=== PATIENT | female | born 1935 | race Caucasian/White ===

== ENCOUNTER 2021-01-14 01:00 | Inpatient (IN) | payer MEDICARE ==
[~2021-01-14] VITALS: Ht 152.4 cm; Wt 52.1 kg
[2021-01-14 04:10] VITALS: BP 141/103
[2021-01-14] MEDS ORDERED: ONDANSETRON 4MG/2ML VIAL IV PRN (04:35)
--- NOTE | 2021-01-14 04:37 | HPEPDOC ---
General Date of Admission 01/14/2021 Date of Service: Jan 14, 2021 Primary Care Physician: SHADY PUGA DO Chief Complaint Short of breath for 3 days Source: Family, Old records Exam Limitations: No limitations Timing/Duration: Day(s) (3) Severity: Mild Associated Symptoms: Cough, Other (lightheadedness) History of Present Illness Patient is a very pleasant 86 year old female with past medical history of atrial fibrillation, chronic kidney disease, rheumatoid arthritis, and congestive heart failure presented to the floor as a transfer from [facility] due to worsening dyspnea and productive cough for the past 3 days. She said the dyspnea started gradually while she was walking, alleviates with resting, worsens with movement. Denies orthopnea or bendopnea. She also has pr oductive cough with clear sputum without hemoptysis. She has noticed worsening bilateral lower extremity edema. Patient has been on home oxygen 2 L since August for unspecified reasons. It was noted that she has been desating into the 60s with exertion, and baseline resting oxygen is low 90s on oxygen. She has been eating more salty food like ham. Not currently on a fluid restriction diet. She denies fever, chills, rhinorrhea, sore throat, or sick contact. She said she has been feeling lightheaded and feels like she was going to pass out when she coughed hard; no actual loss of consciousness. Home Medications Scheduled Apixaban (Eliquis) 5 Mg Tablet, 5 MG PO BID, (Reported) Bimatoprost (Lumigan) 0.01% 2.5ML Drops, 1 DROP OU QHS, (Reported) Brimonidine Tartrate (Alphagan P) 0.1% 5ML Drops, 1 DROP OU BID, (Reported) Calcium Citrate/Vitamin D3 (Citracal + D Maximum Caplet) 1 Each Tablet, 1 TAB PO DAILY, (Reported) Diltiazem Hcl (Diltiazem 24Hr ER) 360 Mg Cap.er.24h, 360 MG PO DAILY, (Reported) Ferrous Sulfate (Ferrous Sulfate) 325 Mg Tablet, 325 MG PO DAILY, (Reported) Furosemide (Furosemide) 40 Mg Tablet, 40 MG PO DAILY, (Reported) Hydroxyzine HCl (Hydroxyzine HCl) 10 Mg Tablet, 10 MG PO QHS, (Reported) Leflunomide (Leflunomide) 20 Mg Tablet, 20 MG PO DAILY, (Reported) Metoprolol Succinate (Metoprolol Succinate) 50 Mg Tab.er.24h, 50 MG PO DAILY, (Reported) Multivitamins (Thera M Plus Tablet) 1 Each Tablet, 1 TAB PO DAILY, (Reported) Omeprazole (Omeprazole) 40 Mg Capsule.dr, 40 MG PO DAILY, (Reported) Potassium Chloride (Potassium Chloride) 10 Meq Capsule.er, 10 MEQ PO DAILY, (Reported) Prednisone (Prednisone) 5 Mg Tablet, 5 MG PO Q2D, (Reported) Allergies Coded Allergies: tetanus toxoid, adsorbed (Verified Allergy, Mild, POSITIVE PATCH TEST, 01/14/21) codeine (Verified Adverse Reaction, Mild, MAKES HYPER, 01/14/21) pneumococcal vaccine (Verified Adverse Reaction, Unknown, FLU SYMPTOMS, 01/14/21) Past Medical History Medical History Rheumatoid arthritis on chronic PO prednisone Congestive heart failure Prior sepsis Chronic kidney disease Abdominal aortic aneurysm Nodules on thyroid Surgical History Appendectomy Left oophrectomy Bladder suspension Carpal tunnel repair Left hammer toe surgery(4 out of 5 toes in left foot) Family History Father has diabetes Mother has COPD Social History * Smoker: Denies, other (Remote smoking history quit in 1991) Alcohol: Denies Drugs: denies Recent Travel/Sick Contacts: Denies: Recent travel, Recent sick contacts Lives at home A-FIB/CHADSVASC A-FIB History Current/History of A-Fib/PAF?: Yes Current PO Anticoag Therapy: Yes Age/Risk Factor Scoring CHADSVASC: CHADSVASC Response (Comments) Value Age Risk Factor Age >/= 75 years old 2 Gender Risk Factor Female 1 Hx of CHF Yes 1 Hx of HTN No 0 Hx of Stroke/TIA/or VTE No 0 Hx of Diabetes No 0 Hx of Vascular Disease No 0 Total 4 Treatment Treatment ordered: Apixaban Review of Systems Constitutional: Reports: Other (lightheadedness); Denies: Chills, Fever Eyes: Denies: Vision change ENT: Denies: Sore Throat Pulmonary: Reports: Dyspnea, Cough Cardiovascular: Denies: Chest Pain, Palpitations, Orthopnea Gastrointestinal: Reports: Nausea; Denies: Vomiting, Abdominal Pain, Diarrhea, Constipation, Hematochezia Genitourinary: Denies: Dysuria, Hematuria Musculoskeletal: Reports: Other Symptoms (rheumatoid arthritis) Neurological: Denies: Weakness, Numbness Physical Examination General Exam: Positive: Alert, Cooperative, Mild Distress Eye Exam: Positive: Conjunctiva & lids normal; Negative: Sclera icteric ENT Exam: Positive: Atraumatic, Mucous membr. moist/pink Chest Exam: Positive: Normal air movement, Wheezing (bilateral wheezing) Heart Exam: Positive: Rate Normal, Irregular Rhythm; Negative: Murmurs Abdomen Exam: Positive: Normal bowel sounds, Soft; Negative: Tenderness Extremity Exam: Positive: Edema (2 to 3 +pitting edema bilaterally, right worse than left); Negative: Cyanosis Skin Exam: Positive: Nl turgor and temperature; Negative: Breakdown Neuro Exam: Positive: Normal Speech, Normal Tone Psych Exam: Positive: Mental status NL, Mood NL, Memory Intact, Oriented x 3 Vital Signs Vital Signs Date Time Temp Pulse Resp B/P (MAP) Pulse Ox O2 Delivery O2 Flow Rate FiO2 01/14/21 04:10 97.7 107 17 141/103 (116) 85 Assessment/Plan 86 year old very pleasant female with past medical history of atrial fibrillation and CHF chronically on 2L oxygen at home presented to [facility] due to 3 days of worsening dyspnea, exertional dyspnea, lightheadedness, and bilateral lower extremity swelling as a transfer from [facility]. 1. Dyspnea on exertion, likely due to CHF exacerbation vs undiagnosed COPD exacerbation vs less likely pneumonia -Worsening dyspnea, cough, lower extremity edema -Hold home PO lasix. Start IV lasix 40mg BID -transient hypoxia may contribute to her lightheadedness and nausea. Currently without lightheadedness. Zofran PRN -continuous pulse ox, oxygen therapy to titrate O2>92% -xopenex PRN. May add on scheduled respiratory treatment -cardiac marker, tele monitor, echo -Less likely pneumonia however patient has autoimmune disease, also on lefluonmide and prednisone thus may not have a full inflammatory response. Portable chest X ray ordered. -I&O, daily weight 2. Atrial fibrillation -continue home med Eliquis, diltiazem, and Metoprolol -tele monitor 3. Rheumatoid arthritis -continue home med prednisone -Continue Leflunomide; Leflunomide not available in-house; may use own med DVT prophylaxis: On home med Eliquis for A. fib. SCD and TEDS Plan / VTE VTE Prophylaxis Ordered?: Yes GME ATTESTATION GME ATTESTATION My faculty preceptor for this patient encounter was physically present during the encounter and was fully available. All aspects of the patient interview, examination, medical decision making process, and medical care plan development were reviewed and approved by the faculty preceptor. The faculty preceptor is aware and concurs with the plan as stated in the body of this note and will attest to such by his/her cosignature. ATTENDING NOTE I, Shady Puga, performed a history and physical exam of the patient and discuss his/or her management with the resident. I reviewed the residents note and agree with the documented findings and plan of care. KASEY NOLAND DO Jan 14, 2021 04:37 SHADY PUGA DO Jan 14, 2021 05:43
[2021-01-14] MEDS ORDERED: METOPROLOL TART 50 MG TAB PO ONE (04:40)
[2021-01-14] MEDS ORDERED: LEFL1TAB4 PO (04:43)
[2021-01-14] MEDS ORDERED: POTA10CA32 PO (04:43)
[2021-01-14] MEDS ORDERED: ELIQ5TAB PO (04:43)
[2021-01-14] MEDS ORDERED: DILT1CAP46 PO (04:43)
[2021-01-14] MEDS ORDERED: FURO40TA2 PO (04:43)
[2021-01-14] MEDS ORDERED: PRED5TA PO (04:43)
[2021-01-14] MEDS ORDERED: HYDR-643 PO (04:43)
[2021-01-14] MEDS ORDERED: BRIM1OPD OU (04:44)
[2021-01-14] MEDS ORDERED: FERR1TAB8 PO (04:44)
[2021-01-14] MEDS ORDERED: VITMTA PO (04:44)
[2021-01-14] MEDS ORDERED: BIMA01SOL OU (04:44)
[2021-01-14] MEDS ORDERED: METO1TAB7 PO (04:44)
[2021-01-14] MEDS ORDERED: OMEP-221 PO (04:44)
[2021-01-14] MEDS ORDERED: CITRTAB16 PO (04:44)
[2021-01-14] MEDS ORDERED: predniSONE 5 MG TAB PO ONE (04:45)
[2021-01-14] MEDS ORDERED: HOME MED LIST COMPLETE! XX SCH (04:45)
[2021-01-14] MEDS ORDERED: LEVALBUTEROL HFA 45MCG/ACT 15 GM INHALER INH PRN (04:45)
[2021-01-14] MEDS: FUROSEMIDE 40MG/4ML VIAL (J1940) IV SCH ×2 (05:53→07:51)
[2021-01-14] MEDS: APIXABAN 5 MG TAB (ELIQUIS) PO SCH ×2 (05:56→07:52)
[2021-01-14 06:00] VITALS: BP 139/98
[2021-01-14 06:57] LABS: HEMATOCRIT 41.7 % (36.0-47.0); HEMOGLOBIN 13.1 g/dl (12.0-15.5); MEAN CORPUSCULAR HEMOGLOBIN 31.6 pg (27.0-33.0); MEAN CORPUSCULAR HGB CONC 31.4 g/dl (32.0-36.5); MEAN CORPUSCULAR VOLUME 100.7 fl (80.0-96.0); PLATELET COUNT, AUTOMATED 168 10^3/uL (150-450); RED BLOOD COUNT 4.14 10^6/uL (4.00-5.40); WHITE BLOOD COUNT 4.4 10^3/uL (4.0-10.0)
[2021-01-14 07:11] LABS: INR 1.63; PROTHROMBIN TIME 19.8 SECONDS (12.7-14.5)
[2021-01-14 07:12] LABS: PARTIAL THROMBOPLASTIN TIME 40.6 SECONDS (25.9-37.0)
[2021-01-14 07:23] LABS: ALBUMIN 2.6 GM/DL (3.2-5.2); ALT/SGPT 25 U/L (12-78); BILIRUBIN,TOTAL 0.7 MG/DL (0.2-1.0); BLOOD UREA NITROGEN 42 MG/DL (7-18); CALCIUM LEVEL 9.6 MG/DL (8.8-10.2); CARBON DIOXIDE LEVEL 31 MEQ/L (21-32); CHLORIDE LEVEL 100 MEQ/L (98-107); CK-MB VALUE MASS < 1.0 NG/ML (<3.6); CPK CREATINE PHOSPHOKINASE 21 U/L (26-192); CREATININE FOR GFR 1.31 MG/DL (0.55-1.30); GLOMERULAR FILTRATION RATE 41.1 (>32); GLUCOSE, FASTING 92 MG/DL (70-100); MB/CK RELATIVE INDEX 4.76 (< OR =4); POTASSIUM SERUM 4.2 MEQ/L (3.5-5.1); SODIUM LEVEL 136 MEQ/L (136-145); TROPONIN I 0.03 NG/ML (< 0.10)
[2021-01-14] MEDS: OMEPRAZOLE 20 MG CAP PO SCH (07:51)
[2021-01-14] MEDS: CALCIUM/VITAMIN D 500 MG TAB PO SCH (07:51)
[2021-01-14] MEDS: POTASSIUM CHLORIDE 10MEQ SR TABLET PO SCH (07:51)
[2021-01-14] MEDS: FERROUS SULFATE 325MG TAB PO SCH (07:52)
[2021-01-14] MEDS: MULTIVITAMINS/MINERALS THERAP 1 TAB PO SCH (07:52)
[2021-01-14] MEDS: diltiaZEM **CD** 180 MG CAP PO SCH (07:57)
[2021-01-14] MEDS: BRIMONIDINE 0.1% OPHTH SOLN 5 ML OU SCH ×2 (08:00→20:38)
--- NOTE | 2021-01-14 08:05 | REP ---
INDICATION: CHF. COMPARISON: No comparison chest x-ray TECHNIQUE: Portable upright AP chest radiograph. FINDINGS: Monitoring electrodes are present. Moderate cardiac enlargement is observed. The aorta is calcific and tortuous. There is no evidence of pleural effusion. There are however bilateral interstitial infiltrates in the lung jaramillo, left perihilar, right upper lobe, and right lower lobe. Acute versus chronic. IMPRESSION: Bilateral interstitial infiltrates. Moderate cardiac enlargement. No evidence of pleural effusion. <Electronically signed by Jitendra Vee > 01/14/21 [id number]
--- NOTE | 2021-01-14 08:10 | REPVR ---
PROCEDURE INFORMATION: Exam: US Duplex Right Lower Extremity Veins, Limited Exam date and time: 01/14/2021 6:58 AM Age: 86 years old Clinical indication: Edema, localized; Lower extremity, right; Additional info: Right lower extremity swelling TECHNIQUE: Imaging protocol: Real-time Duplex ultrasound of the Right Lower Extremity with 2-D lang scale, color Doppler flow and spectral waveform analysis with image documentation. Limited exam was focused on the right lower extremity veins. COMPARISON: No relevant prior studies available. FINDINGS: Right deep veins: Unremarkable. The common femoral, femoral, proximal profunda femoral and popliteal veins are patent without thrombus. Normal Doppler waveforms. Normal compressibility and/or augmentation response. Right superficial veins: Unremarkable. Saphenofemoral junction is patent without thrombus. Soft tissues: Unremarkable. IMPRESSION: No evidence of deep vein thrombosis. Electronically signed by: Sim Abebe On 01/14/2021 08:10:20 AM
[2021-01-14] MEDS ORDERED: LEFLUNOMIDE 20 MG PO SCH (09:00)
[2021-01-14 09:06] LABS: NT-PRO BNP 6425 PG/ML (<450)
--- NOTE | 2021-01-14 12:56 | REP ---
INDICATION: Hypoxia, abnormal CXR. COMPARISON: Comparison is made with today's chest x-ray. TECHNIQUE: Helical scanning is acquired. 3 mm axial images are generated. Coronal and sagittal MPR and coronal MIP images are generated. 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 Axial CT images show a predominantly peripheral pattern of subpleural interstitial fibrosis in the lung jaramillo consistent with chronic interstitial fibrosis. This is more pronounced in the right upper lobe and to a lesser extent left upper lobe than in the lower lobes but there is coarse fibrosis in the lower lobes as well. A minimal amount of pleural fluid and some pleural thickening is visible in the bases. Four-chamber cardiac enlargement is seen. Mitral annular and some vascular calcification are observed. No hilar or mediastinal mass or adenopathy is seen. The central pulmonary arteries are prominent question pulmonary arterial hypertension. There are renal cortical cysts noted bilaterally in the upper abdomen. The adrenal glands are unremarkable. There are bilateral thyroid nodules containing calcifications. No bony destructive lesion is appreciated. IMPRESSION: Diffuse interstitial fibrosis pattern, moderate to advanced, most pronounced in the right upper lobe. Tiny sliver of bilateral pleural fluid. Cardiomegaly. Centrally prominent pulmonary arteries, question pulmonary arterial hypertension. Bilateral renal cortical cysts. <Electronically signed by Jitendra Vee > 01/14/21 [id number]
[2021-01-14 14:00] VITALS: BP 99/66
--- NOTE | 2021-01-14 16:37 | ECGEPIP ---
[facility] Test Date: 2021-01-14 Pat Name: YUE ROJAS Department: Room: [place] [address] Gender: Female Exhibits Coordinator: yuliya : 1935 Requested By: LIMA Bales Order Number: [id number] Reading MD: Johnie Herrmann Measurements Intervals [place] Rate: 104 P: SC: QRS: -50 QRSD: 80 T: 121 QT: 328 QTc: 431 Interpretive Statements Atrial fibrillation with moderate ventricular response Left anterior fascicular block Nonspecific ST and T wave abnormality Comparison tracing not on file Electronically Signed on 01-14-2021 16:36:52 EDT by Johnie Herrmann
[2021-01-14] MEDS: hydrOXYzine 10 MG TAB PO SCH (20:38)
[2021-01-14] MEDS ORDERED: BIMATOPROST 0.01% OU SCH (21:00)
[2021-01-14 22:00] VITALS: BP 118/79
[2021-01-15 06:00] VITALS: BP 131/79
[2021-01-15] MEDS: FERROUS SULFATE 325MG TAB PO SCH (08:39)
[2021-01-15] MEDS: CALCIUM/VITAMIN D 500 MG TAB PO SCH (08:39)
[2021-01-15] MEDS: MULTIVITAMINS/MINERALS THERAP 1 TAB PO SCH (08:39)
[2021-01-15] MEDS: OMEPRAZOLE 20 MG CAP PO SCH (08:39)
[2021-01-15] MEDS: APIXABAN 5 MG TAB (ELIQUIS) PO SCH ×2 (08:40→22:05)
[2021-01-15] MEDS: METOPROLOL TART 25 MG TABLET PO SCH ×2 (08:40→16:04)
[2021-01-15] MEDS: POTASSIUM CHLORIDE 10MEQ SR TABLET PO SCH (08:40)
[2021-01-15] MEDS: diltiaZEM **CD** 180 MG CAP PO SCH (08:41)
[2021-01-15] MEDS: BRIMONIDINE 0.1% OPHTH SOLN 5 ML OU SCH ×2 (08:42→22:05)
[2021-01-15] MEDS: FUROSEMIDE 40MG/4ML VIAL (J1940) IV SCH ×2 (08:42→18:35)
[2021-01-15] MEDS ORDERED: METOPROLOL SUCC (TopROL XL) 50MG **XL** TAB PO SCH (09:00)
[2021-01-15] MEDS ORDERED: FLUBLOK(EGG FREE)(QUAD)INFLUENZA VACC 0.5ML SYRINGE 18YRS & OLDER IM ONE (09:00)
--- NOTE | 2021-01-15 11:19 | IPNPDOC ---
Date Seen The patient was seen on 01/15/21. Progress Note SUBJECTIVE: Patient seen and examined at bedside. She is sitting in bed eating breakfast. Overnight had A. fib with RVR heart rate of 130. Was asymptomatic. Denies chest pain shortness of breath palpitations fevers chills. Lower extremity edema 2+ pulses. Patient has been putting out urine presently -160 fluid balance although her weight decreased from 65.4kg to 61.9 kg, therefore I am not sure if this is entirely correct. Patient reports that she has not been seeing a rheumatoligist, and has failed numerous treatments in the past including methotrexate and bioligics. She has been on leflunomide for nearly 10 years. 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 OBJECTIVE PHYSICAL EXAMINATION: VITAL SIGNS: please see below General: NAD, comfortable HEENT: PERRLA, EOMI, sclerae clear 2 L of oxygen via nasal cannula in place. Neck: supple, normal ROM, no JVD Respiratory: Crackles heard in bilateral lung bases, good inspiratory effort. CVS: RRR, normal S1, S2, no murmurs Abdo: soft, no masses, no hepatosplenomegaly, BS+, no rebound tenderness Extremities: 2+ pitting edema persistent bilateral lower extremities. No cyanosis. MSK: no joint deformities, normal ROM Neuro: no focal neuro deficits, moving all 4 extremities, CN2-12 intact. Strength 5/5 in all 4 extremities. No nystagmus. Psych: calm, cooperative, AAO x 3 LABORATORY DATA, IMAGING STUDIES, MICROBIOLOGY: Please see below. Echocardiogram: Completed on 01/14/2021 pending read. DVT prophylaxis ordered?: On Eliquis ASSESSMENT AND PLAN: 86-year-old female with a past medical history of atrial fibrillation on Eliquis, CKD, rheumatoid arthritis, congestive heart failure as yet unspecified, suspected pulmonary hypertension on 2 L home oxygen PROBLEMS: Dyspnea and hypoxia likely secondary due to CHF exacerbation - continues to require 5L - edema persists - BNP 6425 - bilateral 2+ pitting edema persists, has extensive crackles - will increase lasic to 40 mg IV q8h - strict I and O. restrict PO fluid to 1800 cc. 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 Damian. - patient has severe interstitial pulmonary disease with possible acute exacerbation or drug incuced pneumonitis - concern for pulm fibrosis 2/2 leflunomide. - Dr. Damian recommends stopping leflunomide. Patient will need close referral to rheumatology. - pulse with high dose steroids, solumedrol 1g daily x 3 days, continue with solumedrol 40 mg IV BID therafter - will start prophylactic ceftriaxone and azithromycin - check resp panel again, and sputum cultures. 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 VS, I&O, 24H, Fishbone Vital Signs/I&O Vital Signs Date Time Temp Pulse Resp B/P (MAP) Pulse Ox O2 Delivery O2 Flow Rate FiO2 01/15/21 08:41 105 135/91 01/15/21 06:00 97.2 17 91 Nasal Cannula 5.0 I&O- Last 24 Hours up to 6 AM 01/15/21 05:59 Intake Total 1390 ml Output Total 1550 ml Balance -160 ml Laboratory Data Microbiology Microbiology 01/14/21 Respiratory Virus Panel (PCR) (JOSEPHINE) - Final, Complete HEATHER JOSEPH MD Jan 15, 2021 11:19
[2021-01-15 11:35] LABS: BASO % 1.4 % (0.0-1.0); EOS # 0.1 10^3/uL (0.0-0.5); EOS % 2.1 % (0.0-3.0); HEMATOCRIT 41.5 % (36.0-47.0); HEMOGLOBIN 12.7 g/dl (12.0-15.5); LYMPH # 0.4 10^3/uL (1.5-5.0); LYMPH % 14.8 % (24.0-44.0); MEAN CORPUSCULAR HEMOGLOBIN 31.6 pg (27.0-33.0); MEAN CORPUSCULAR HGB CONC 30.6 g/dl (32.0-36.5); MEAN CORPUSCULAR VOLUME 103.2 fl (80.0-96.0); MONO # 0.6 10^3/uL (0.0-0.8); MONO % 20.1 % (2.0-8.0); NEUTROPHILS # 1.7 10^3/uL (1.5-8.5); NEUTROPHILS % 60.9 % (36.0-66.0); PLATELET COUNT, AUTOMATED 141 10^3/uL (150-450); RED BLOOD COUNT 4.02 10^6/uL (4.00-5.40); WHITE BLOOD COUNT 2.8 10^3/uL (4.0-10.0)
[2021-01-15 12:01] LABS: ALBUMIN 2.2 GM/DL (3.2-5.2); BILIRUBIN,TOTAL 0.5 MG/DL (0.2-1.0); CALCIUM LEVEL 9.1 MG/DL (8.8-10.2); CREATININE FOR GFR 1.11 MG/DL (0.55-1.30); GLOMERULAR FILTRATION RATE 49.7 (>32); MAGNESIUM LEVEL 1.7 MG/DL (1.8-2.4); POTASSIUM SERUM 4.5 MEQ/L (3.5-5.1); TOTAL PROTEIN 6.6 GM/DL (6.4-8.2)
[2021-01-15 14:00] VITALS: BP 102/73
--- NOTE | 2021-01-15 14:30 | CR.PDOC ---
General Date of Consultation: Jan 15, 2021 Referring Provider: HEATHER JOSEPH MD Attending Physician: HEATHER JOSEPH MD Consultation REASON FOR CONSULTATION/CHIEF COMPLAINT: Shortness of breath and a cough. HISTORY OF PRESENT ILLNESS: This is a pleasant 86-year-old lady with past med ical history of rheumatoid arthritis, pulmonary fibrosis, atrial fibrillation on Eliquis, congestive heart failure, chronic kidney, chronic hypoxic respiratory failure on 2 L oxygen at home disease who presented to hospital yesterday with complaints of shortness of breath and cough. Patient has been experiencing shortness of breath and cough for the last 1 year. Her symptom has been progressive to the point that she is unable to perform any physical activity without experiencing severe shortness of breath. Therefore she presented to hospital yesterday. In addition to shortness of breath, patient complains of dry cough. She also admits to what appears to be orthopnea however it is likely related to her anxiety as she stated. However, she denies fever, chills, night sweats, weight loss, appetite change, hemoptysis, sputum production, wheezing, chest pain, palpitation, abdominal pain, rash, joint pain or joint swelling. She has been diagnosed with rheumatoid arthritis since she was in her 50s. She has been on multiple immunosuppressive agent including methotrexate, Enbrel, Plaquenil. However in the last 8 to 10 years, she has been on leflunomide and low-dose prednisone of 5 mg. She has not follow-up with her pedicab driver for many years. In the last recent several years, she has not had any RA exacerbation. She did have an episode of sepsis where she was admitted at [facility] back in July. At that time she was noted to have pulmonary fibrosis which her valet parker likely attributed to amiodarone. Therefore amiodarone was stopped and she was switched to diltiazem. 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 She denies any significant occupational exposure. She does not want any pets. She does not have any allergy. She has not relocated in the last 60 years. She lives by herself with her daughter around the corner of the street who take care of her. She used to smoke in the past but has not smoked since 1991. Upon admission to the hospital, patient was diagnosed with decompensated heart failure and was given diuretic therapy along with fluid restriction. CT scan of the chest done shows significant pulmonary fibrosis with reticulation in the periphery as well as honeycomb changes along with traction bronchiectasis. There was also evidence of groundglass opacity bilaterally. Pulmonary artery di ameter is also larger than aorta suggestive of pulmonary hypertension. The CT scan of the chest was consistent with NSIP (nonspecific interstitial pneumonia). Pulmonary was consulted for further recommendation. ALLERGIES: Please see below. HOME MEDICATIONS: Please see below. PAST MEDICAL HISTORY: Rheumatoid arthritis on chronic PO prednisone Congestive heart failure Prior sepsis Chronic kidney disease Abdominal aortic aneurysm Nodules on thyroid PAST SURGICAL HISTORY: Appendectomy Left oophrectomy Bladder suspension Carpal tunnel repair Left hammer toe surgery(4 out of 5 toes in left foot) FAMILY HISTORY: Father has diabetes Mother has COPD SOCIAL HISTORY: Patient is a . She does have a daughter who lives around the corner of the street that was taking care of her. She is currently living by herself. 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 She used to smoke but quit smoking back in 1991. She denies any history of owning pets. REVIEW OF SYSTEMS: CONSTITUTIONAL: Denies fatigue, appetite change, weight change, night sweats, fever, chills. HEENT: Denies sore throat. CARDIOVASCULAR: Denies chest pain, palpitation, orthopnea, PND. RESPIRATORY: Admits to experiencing shortness of breath and dry cough. Denies wheezing or hemoptysis. GENITOURINARY: Denies dysuria or flank pain. MUSCULOSKELETAL: Denies any joint pain or joint swelling. GASTROINTESTINAL: Denies nausea, vomiting, abdominal pain, diarrhea. SKIN: Denies skin rash or skin lesion. NEUROLOGICAL: Denies slurred speech or focal neurological weakness/numbness. PSYCHIATRIC: Denies depression. ENDOCRINE: Denies weight change. HEMATOLOGIC/LYMPHATIC: Denies bleeding. ALLERGIC/IMMUNOLOGIC: Denies allergy. PHYSICAL EXAMINATION: VITAL SIGNS: Please see below. GENERAL APPEARANCE: Patient appears her stated age. She is alert and oriented x3. She is not in any acute distress. She is conversing well. HEENT: Significant JVD to the base of her earlobe. No cervical adenopathy RESPIRATORY: Bibasilar coarse crackle. CARDIOVASCULAR: Irregularly irregular with no evidence of murmur. ABDOMEN: Soft nontender with positive bowel sounds. EXTREMITIES: +4 pitting edema up to the level of the knees. NEUROLOGICAL: No focal neurological deficit with intact motor strength. PSYCHIATRIC: Alert oriented x3. LABORATORY DATA: Please see below. ASSESSMENT/PLAN: This is a pleasant 86-year-old lady with past medical history of rheumatoid arthritis, pulmonary fibrosis, atrial fibrillation on Eliquis, congestive heart failure, chronic kidney, chronic hypoxic respiratory failure on 2 L oxygen at home disease who presented to hospital yesterday with complaints of shortness of breath and cough. 1. 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 Less likely pneumonia given the lack of clinical symptoms. 2. Decompensated right heart failure with features of group 3 pulmonary hypertension. 3. Pulmonary fibrosis with traction bronchiectasis 4. Atrial fibrillation 5. History of rheumatoid arthritis 6. Acute on chronic hypoxic respiratory failure Plan: -I believe this is a mixture of ILD exacerbation and decompensated right heart failure. Therefore, I recommend to continue on with ongoing aggressive diuresis until we start seeing worsening of kidney function. -With regarding to ILD, I recommend to stop leflunomide immediately and start her on pulse dose systemic corticosteroid with methylprednisolone 1 g/day for 3 days followed by methylprednisolone 40 mg twice daily. Rheumatology input will be greatly appreciated with guidance for alternate immunosuppressive therapy. -I recommend prophylactically cover her with ceftriaxone and azithromycin for community-acquired pneumonia. Please send respiratory viral panel including COVID-19. -Ideally a bronchoscopy with BAL should be performed but given the severity of her respiratory failure, she is at high risk for prolonged intubation. Therefore I will hold off performing bronchoscopy. -I will discuss her case with ILD specialist at [facility]. Vital Signs/I&O Vital Signs Date Time Temp Pulse Resp B/P (MAP) Pulse Ox O2 Delivery O2 Flow Rate FiO2 01/15/21 08:41 105 135/91 01/15/21 06:00 97.2 17 91 Nasal Cannula 5.0 I&O- Last 24 Hours up to 6 AM 01/15/21 06:00 Intake Total 1240 ml Output Total 1550 ml Balance -310 ml Laboratory Data Labs 24H Laboratory Tests 2 01/15/21 11:23: Immature Granulocyte % (Auto) 0.7, Neutrophils (%) (Auto) 60.9, Lymphocytes (%) (Auto) 14.8L, Monocytes (%) (Auto) 20.1H, Eosinophils (%) (Auto) 2.1, Basophils (%) (Auto) 1.4H, Neutrophils # (Auto) 1.7, Lymphocytes # (Auto) 0.4L, Monocytes # (Auto) 0.6, Eosinophils # (Auto) 0.1, Basophils # (Auto) 0.0, Nucleated Red Blood Cells % (auto) 0.0, Anion Gap 4L, Glomerular Filtration Rate 49.7, Calcium Level 9.1, Magnesium Level 1.7L, Total Bilirubin 0.5, Aspartate Amino Transf (AST/SGOT) 33, Alanine Aminotransferase (ALT/SGPT) 24, Alkaline Phosphatase 71, Total Protein 6.6, Albumin 2.2L, Albumin/Globulin Ratio 0.5L CBC/BMP Laboratory Tests 01/15/21 11:23 Microbiology Microbiology 01/14/21 Respiratory Virus Panel (PCR) ([facility]) - Final, Complete Allergies Coded Allergies: tetanus toxoid, adsorbed (Verified Allergy, Mild, POSITIVE PATCH TEST, 01/14/21) codeine (Verified Adverse Reaction, Mild, MAKES HYPER, 01/14/21) pneumococcal vaccine (Verified Adverse Reaction, Unknown, FLU SYMPTOMS, 01/14/21) Home Medications Scheduled Apixaban (Eliquis) 5 Mg Tablet, 5 MG PO BID, (Reported) Bimatoprost (Lumigan) 0.01% 2.5ML Drops, 1 DROP OU QHS, (Reported) Brimonidine Tartrate (Alphagan P) 0.1% 5ML Drops, 1 DROP OU BID, (Reported) Calcium Citrate/Vitamin D3 (Citracal + D Maximum Caplet) 1 Each Tablet, 1 TAB PO DAILY, (Reported) Diltiazem Hcl (Diltiazem 24Hr ER) 360 Mg Cap.er.24h, 360 MG PO DAILY, (Reported) Ferrous Sulfate (Ferrous Sulfate) 325 Mg Tablet, 325 MG PO DAILY, (Reported) Furosemide (Furosemide) 40 Mg Tablet, 40 MG PO DAILY, (Reported) Hydroxyzine HCl (Hydroxyzine HCl) 10 Mg Tablet, 10 MG PO QHS, (Reported) Leflunomide (Leflunomide) 20 Mg Tablet, 20 MG PO DAILY, (Reported) Metoprolol Succinate (Metoprolol Succinate) 50 Mg Tab.er.24h, 50 MG PO DAILY, (Reported) Multivitamins (Thera M Plus Tablet) 1 Each Tablet, 1 TAB PO DAILY, (Reported) Omeprazole (Omeprazole) 40 Mg Capsule.dr, 40 MG PO DAILY, (Reported) Potassium Chloride (Potassium Chloride) 10 Meq Capsule.er, 10 MEQ PO DAILY, (Reported) Prednisone (Prednisone) 5 Mg Tablet, 5 MG PO Q2D, (Reported) FRANCIE RAO MD Jan 15, 2021 14:30
[2021-01-15] MEDS: AZITHROMYCIN INJ 500 MG, VIAL MATE ADAPTER 1 EACH in NS 250 ML IV SCH (15:57)
--- NOTE | 2021-01-15 17:34 | ECHO ---
ECHOCARDIOGRAM DATE OF PROCEDURE: 01/14/2021 Age: 86 Gender: Female Height: 152 cm Weight: 65 kg PATIENT LOCATION: Room 4207. REFERRING PROVIDER: Jeannine Patricio M.D. REASON FOR THE STUDY: Shortness of breath. MEASUREMENTS: 2D Measurements: IVS 1.1 cm LV 3.5 cm LVPW 1.1 cm LA 4.0 cm Aorta 3.3 cm IVC 2.5 cm Doppler Measurements: Peak velocity across the aortic valve 1.3 m/sec Peak velocity across the LVOT 0.6 m/sec Peak gradient across the aortic valve 7 mmHg Mean gradient across the aortic valve 5 mmHg Maximum tricuspid valve velocity 2.9 m/sec 2D COMMENTS: 1. Normal left ventricular size, wall thickness and normal global left ventricular systolic function. The estimated left ventricular systolic ejection fraction is 60-65%. 2. Mildly enlarged left atrium. The right atrium and right ventricle appear to be enlarged. 3. The atrial septum appeared to be normal without evidence of defect or shunt. 4. Normal aortic root. 5. No pericardial effusion seen. 6. Mildly calcified aortic valve with normal leaflet excursion. Mildly calcified mitral annulus with normal anterior mitral valve leaflet motion. Normal tricuspid valve and pulmonic valve. The proximal pulmonary artery branches were not well visualized. 7. The inferior vena cava was mildly enlarged. Central venous pressure might be elevated. DOPPLER: It detects mild aortic regurgitation, mild mitral regurgitation and moderate tricuspid regurgitation. Trace pulmonic regurgitation also detected. The calculated pulmonary artery systolic pressure varies between 40-50 mmHg. Assessment of the left ventricular diastolic function was limited in view of the underlying atrial fibrillation. IMPRESSION: 1. Normal global left ventricular systolic function. Assessment of the left ventricular diastolic function was limited in view of the underlying atrial fibrillation. 2. Aortic valve sclerosis with mild aortic regurgitation and trivial aortic stenosis. 3. Mitral annulus calcification with mildly enlarged left atrium and mild mitral regurgitation. 4. Moderate tricuspid regurgitation with moderate pulmonary hypertension. The right heart chambers appear to be enlarged. 5. The right ventricular systolic function also appeared to be slightly depressed. 6. Trace pulmonic regurgitation. MTDD
[2021-01-15] MEDS: methylPREDNISolone 1,000 MG, VIAL MATE ADAPTER 1 EACH in NS 250 ML IV SCH (18:36)
--- NOTE | 2021-01-15 18:45 | ECGEPIP ---
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
[2021-01-15] MEDS: cefTRIAXone SOD 1 GM in D5W MINI-BAG PLUS 50 ML IV SCH (19:49)
[2021-01-15 21:00] VITALS: O2SAT 93
[2021-01-15 22:00] VITALS: BP 127/85
[2021-01-15] MEDS: hydrOXYzine 10 MG TAB PO SCH (22:05)
[2021-01-16] MEDS: FUROSEMIDE 40MG/4ML VIAL (J1940) IV SCH ×3 (00:40→18:02)
[2021-01-16 06:00] VITALS: BP 102/64
[2021-01-16 06:31] LABS: BASO % 0.4 % (0.0-1.0); EOS % 0.4 % (0.0-3.0); HEMATOCRIT 40.9 % (36.0-47.0); HEMOGLOBIN 12.5 g/dl (12.0-15.5); LYMPH # 0.2 10^3/uL (1.5-5.0); LYMPH % 6.8 % (24.0-44.0); MEAN CORPUSCULAR HEMOGLOBIN 31.4 pg (27.0-33.0); MEAN CORPUSCULAR HGB CONC 30.6 g/dl (32.0-36.5); MEAN CORPUSCULAR VOLUME 102.8 fl (80.0-96.0); MONO # 0.2 10^3/uL (0.0-0.8); MONO % 6.4 % (2.0-8.0); NEUTROPHILS # 2.2 10^3/uL (1.5-8.5); NEUTROPHILS % 85.6 % (36.0-66.0); PLATELET COUNT, AUTOMATED 148 10^3/uL (150-450); RED BLOOD COUNT 3.98 10^6/uL (4.00-5.40); WHITE BLOOD COUNT 2.5 10^3/uL (4.0-10.0)
[2021-01-16 06:42] LABS: ALBUMIN 2.2 GM/DL (3.2-5.2); BILIRUBIN,TOTAL 0.5 MG/DL (0.2-1.0); CALCIUM LEVEL 8.9 MG/DL (8.8-10.2); CREATININE FOR GFR 1.31 MG/DL (0.55-1.30); GLOMERULAR FILTRATION RATE 41.1 (>32); MAGNESIUM LEVEL 1.7 MG/DL (1.8-2.4); POTASSIUM SERUM 4.2 MEQ/L (3.5-5.1); TOTAL PROTEIN 6.6 GM/DL (6.4-8.2)
[2021-01-16] MEDS: MAG SULF 1GM/100ML (MAG RUN) 1 GM in IV 1 EA IV SCH ×2 (08:41→11:33)
[2021-01-16] MEDS: POTASSIUM CHLORIDE 10MEQ SR TABLET PO SCH (08:55)
[2021-01-16] MEDS: CALCIUM/VITAMIN D 500 MG TAB PO SCH (08:55)
[2021-01-16] MEDS: MULTIVITAMINS/MINERALS THERAP 1 TAB PO SCH (08:56)
[2021-01-16] MEDS: OMEPRAZOLE 20 MG CAP PO SCH (08:56)
[2021-01-16] MEDS: METOPROLOL TART 25 MG TABLET PO SCH ×3 (08:57→16:27)
[2021-01-16] MEDS: FERROUS SULFATE 325MG TAB PO SCH (08:57)
[2021-01-16] MEDS: diltiaZEM **CD** 180 MG CAP PO SCH (08:58)
[2021-01-16] MEDS: APIXABAN 5 MG TAB (ELIQUIS) PO SCH ×2 (08:58→20:48)
[2021-01-16] MEDS ORDERED: predniSONE 5 MG TAB PO SCH (09:00)
[2021-01-16] MEDS: BRIMONIDINE 0.1% OPHTH SOLN 5 ML OU SCH ×2 (10:19→20:48)
[2021-01-16] MEDS: methylPREDNISolone 1,000 MG, VIAL MATE ADAPTER 1 EACH in NS 250 ML IV SCH (10:20)
--- NOTE | 2021-01-16 11:47 | IPNPDOC ---
Date Seen The patient was seen on 01/16/21. Progress Note SUBJECTIVE: Patient seen and examined at bedside. She is sitting in bed eating breakfast. Overnight had A. fib with RVR heart rate of 130. Was asymptomatic. Denies chest pain shortness of breath palpitations fevers chills. Lower extremity edema 2+ pulses. Patient has been putting out urine presently -160 fluid balance although her weight decreased from 65.4kg to 61.9 kg, therefore I am not sure if this is entirely correct. Patient reports that she has not been seeing a rheumatoligist, and has failed numerous treatments in the past including methotrexate and bioligics. She has been on leflunomide for nearly 10 years. 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 OBJECTIVE PHYSICAL EXAMINATION: VITAL SIGNS: please see below General: NAD, comfortable HEENT: PERRLA, EOMI, sclerae clear 2 L of oxygen via nasal cannula in place. Neck: supple, normal ROM, no JVD Respiratory: Crackles heard in bilateral lung bases, good inspiratory effort. CVS: RRR, normal S1, S2, no murmurs Abdo: soft, no masses, no hepatosplenomegaly, BS+, no rebound tenderness Extremities: 2+ pitting edema persistent bilateral lower extremities. No cyanosis. MSK: no joint deformities, normal ROM Neuro: no focal neuro deficits, moving all 4 extremities, CN2-12 intact. Strength 5/5 in all 4 extremities. No nystagmus. Psych: calm, cooperative, AAO x 3 LABORATORY DATA, IMAGING STUDIES, MICROBIOLOGY: Please see below. Echocardiogram: Completed on 01/14/2021 pending read. DVT prophylaxis ordered?: On Eliquis ASSESSMENT AND PLAN: 86-year-old female with a past medical history of atrial fibrillation on Eliquis, CKD, rheumatoid arthritis, congestive heart failure as yet unspecified, suspected pulmonary hypertension on 2 L home oxygen PROBLEMS: Dyspnea and hypoxia likely secondary due to CHF exacerbation - continues to require 5L - edema persists - BNP 6425 - bilateral 2+ pitting edema persists, has extensive crackles - will increase lasic to 40 mg IV q8h - strict I and O. restrict PO fluid to 1800 cc. 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 Damian. - patient has severe interstitial pulmonary disease with possibe acute exacerbation or drug incudec pneumonitis - Dr. Garduno recommends stopping leflunomide. Patient will need close referral to rheumatology. - pulse with high dose steroids, solumedrol 1g daily x 3 days, continue with solumedrol 40 mg IV BID therafter - will start prophylactic ceftriaxone and azithromycin - check resp panel again, and sputum cultures. 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 [facility] V[facility] Signs/I&O Vital Signs Date Time Temp Pulse Resp B/P (MAP) Pulse Ox O2 Delivery O2 Flow Rate FiO2 01/16/21 08:57 138 128/85 01/16/21 06:00 97.1 16 91 Nasal Cannula 6.0 I&O- Last 24 Hours up to 6 AM 01/16/21 06:00 Intake Total 1629 ml Output Total 300 ml Balance 1329 ml Laboratory Data 24H LABS Laboratory Tests 2 01/16/21 05:24: Immature Granulocyte % (Auto) 0.4, Neutrophils (%) (Auto) 85.6H, Lymphocytes (%) (Auto) 6.8L, Monocytes (%) (Auto) 6.4, Eosinophils (%) (Auto) 0.4, Basophils (%) (Auto) 0.4, Neutrophils # (Auto) 2.2, Lymphocytes # (Auto) 0.2L, Monocytes # (Auto) 0.2, Eosinophils # (Auto) 0.0, Basophils # (Auto) 0.0, Nucleated Red Blood Cells % (auto) 0.0, Anion Gap 5L, Glomerular Filtration Rate 41.1, Calcium Level 8.9, Magnesium Level 1.7L, Total Bilirubin 0.5, Aspartate Amino Transf (AST/SGOT) 23, Alanine Aminotransferase (ALT/SGPT) 26, Alkaline Phosphatase 83, Total Protein 6.6, Albumin 2.2L, Albumin/Globulin Ratio 0.5L CBC/BMP Laboratory Tests 01/16/21 05:24 Microbiology Microbiology 01/15/21 Respiratory Virus Panel (PCR) ([facility]) - Final, Complete 01/14/21 Respiratory Virus Panel (PCR) ([facility]) - Final, Complete HEATHER JOSEPH MD Jan 16, 2021 11:47
[2021-01-16 13:33] VITALS: O2SAT 91
[2021-01-16 14:00] VITALS: BP 117/83
[2021-01-16] MEDS: AZITHROMYCIN INJ 500 MG, VIAL MATE ADAPTER 1 EACH in NS 250 ML IV SCH (16:27)
[2021-01-16] MEDS: cefTRIAXone SOD 1 GM in D5W MINI-BAG PLUS 50 ML IV SCH (18:01)
[2021-01-16] MEDS: hydrOXYzine 10 MG TAB PO SCH (20:48)
[2021-01-16 21:00] VITALS: O2SAT 93
[2021-01-16 22:00] VITALS: BP 109/81
[2021-01-17] MEDS: METOPROLOL TART 25 MG TABLET PO SCH ×3 (00:44→16:29)
[2021-01-17] MEDS: FUROSEMIDE 40MG/4ML VIAL (J1940) IV SCH ×3 (00:44→17:49)
[2021-01-17 06:00] VITALS: BP 127/86
[2021-01-17 06:35] LABS: BASO % 0.2 % (0.0-1.0); HEMATOCRIT 38.8 % (36.0-47.0); HEMOGLOBIN 12.1 g/dl (12.0-15.5); LYMPH # 0.2 10^3/uL (1.5-5.0); LYMPH % 2.6 % (24.0-44.0); MEAN CORPUSCULAR HEMOGLOBIN 31.8 pg (27.0-33.0); MEAN CORPUSCULAR HGB CONC 31.2 g/dl (32.0-36.5); MEAN CORPUSCULAR VOLUME 101.8 fl (80.0-96.0); MONO # 0.3 10^3/uL (0.0-0.8); MONO % 5.1 % (2.0-8.0); NEUTROPHILS # 5.2 10^3/uL (1.5-8.5); NEUTROPHILS % 91.7 % (36.0-66.0); PLATELET COUNT, AUTOMATED 141 10^3/uL (150-450); RED BLOOD COUNT 3.81 10^6/uL (4.00-5.40); WHITE BLOOD COUNT 5.7 10^3/uL (4.0-10.0)
[2021-01-17 07:17] LABS: ALBUMIN 2.4 GM/DL (3.2-5.2); BILIRUBIN,TOTAL 0.4 MG/DL (0.2-1.0); CALCIUM LEVEL 8.6 MG/DL (8.8-10.2); CREATININE FOR GFR 1.24 MG/DL (0.55-1.30); GLOMERULAR FILTRATION RATE 43.8 (>32); MAGNESIUM LEVEL 2.2 MG/DL (1.8-2.4); POTASSIUM SERUM 3.6 MEQ/L (3.5-5.1); TOTAL PROTEIN 6.8 GM/DL (6.4-8.2)
[2021-01-17] MEDS ORDERED: DEXTROSE 50% 50 ML SYRINGE IV PRN (08:00)
[2021-01-17] MEDS ORDERED: GLUCOSE 4GM CHEW TABLET PO PRN (08:00)
[2021-01-17] MEDS ORDERED: GLUCAGON INJ 1MG VIAL SC PRN (08:00)
[2021-01-17 08:38] VITALS: BP 126/92
[2021-01-17] MEDS: diltiaZEM **CD** 180 MG CAP PO SCH (08:42)
[2021-01-17] MEDS: APIXABAN 5 MG TAB (ELIQUIS) PO SCH ×2 (08:42→20:06)
[2021-01-17] MEDS: MULTIVITAMINS/MINERALS THERAP 1 TAB PO SCH (08:42)
[2021-01-17] MEDS: POTASSIUM CHLORIDE 10MEQ SR TABLET PO SCH (08:42)
[2021-01-17] MEDS: BRIMONIDINE 0.1% OPHTH SOLN 5 ML OU SCH ×2 (08:43→20:06)
[2021-01-17] MEDS: methylPREDNISolone 1,000 MG, VIAL MATE ADAPTER 1 EACH in NS 250 ML IV SCH (08:43)
[2021-01-17] MEDS: FERROUS SULFATE 325MG TAB PO SCH (08:43)
[2021-01-17] MEDS: OMEPRAZOLE 20 MG CAP PO SCH (08:43)
[2021-01-17] MEDS: CALCIUM/VITAMIN D 500 MG TAB PO SCH (08:44)
[2021-01-17] MEDS: HumaLOG INSULIN (NovoLOG) PER UNIT SC SCH ×3 (12:38→20:06)
--- NOTE | 2021-01-17 13:24 | IPNPDOC ---
Subjective Date Seen The patient was seen on 01/17/21. Subjective Chief Complaint/HPI Subjectively patient is feeling better. However she is still requiring significant amount of oxygen 5 to 6 L. She denies fever, chills, cough, o rthopnea, PND. General: Denies: Chills Constitutional: Denies: Chills, Fever ENT: Denies: Sore Throat Skin: Denies: Rash Pulmonary: Reports: Dyspnea; Denies: Cough, Pleuritic Chest Pain Cardiovascular: Denies: Chest Pain, Palpitations, Orthopnea, Paroxysmal Noc. Dyspnea, Edema Gastrointestinal: Denies: Nausea, Vomiting, Abdominal Pain, Diarrhea Neurological: Denies: Weakness, Numbness Objective Physical Examination General Exam: Positive: Alert, Cooperative, Mild Distress Eye Exam: Positive: Conjunctiva & lids normal; Negative: Sclera icteric ENT Exam: Positive: Atraumatic, Other ENT (Dry mucous membrane and tongue) Neck Exam: Positive: Supple; Negative: JVD Chest Exam: Positive: Normal air movement, Rales (Bilateral) Heart Exam: Positive: Rate Normal, Irregular Rhythm; Negative: Murmurs Abdomen Exam: Positive: Normal bowel sounds, Soft; Negative: Tenderness Extremity Exam: Positive: Edema (Improved edema of the lower extremity compared to 2 days ago.); Negative: Cyanosis Skin Exam: Positive: Nl turgor and temperature; Negative: Breakdown Neuro Exam: Positive: Normal Speech, Normal Tone Psych Exam: Positive: Mental status NL, Mood NL, Memory Intact, Oriented x 3 Assessment /Plan Assessment This is a pleasant 86-year-old lady with past medical history of rheumatoid arthritis, pulmonary fibrosis, atrial fibrillation on Eliquis, congestive heart failure, chronic kidney, chronic hypoxic respiratory failure on 2 L oxygen at home disease who presented to hospital yesterday with complaints of shortness of breath and cough. 1. 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 Less likely pneumonia given the lack of clinical symptoms. 2. Decompensated right heart failure with features of group 3 pulmonary hypertension. 3. Pulmonary fibrosis with traction bronchiectasis 4. Atrial fibrillation 5. History of rheumatoid arthritis on leflunomide and prednisone 5 mg 6. Acute on chronic hypoxic respiratory failure Plan/VTE VTE Prophylaxis Ordered?: Yes Plan -Recommend to continue with aggressive diuresis until we start seeing rising creatinine or serum bicarb to indicate contraction alkalosis. -Continue with pulse dose steroid for total of 3 days followed by methylprednisolone 40 mg twice daily. Continue to hold leflunomide as this may be a contributing factor for her ongoing respiratory failure. It will be nice and luxurious to have rheumatology input on her ongoing acute issues. -Continue with prophylactic antibiotic ceftriaxone and azithromycin. Disposition Continue medical care in the hospital. VS, I&O, 24H, Fishbone Vital Signs/I&O Vital Signs Date Time Temp Pulse Resp B/P (MAP) Pulse Ox O2 Delivery O2 Flow Rate FiO2 01/17/21 10:08 6.0 01/17/21 08:42 100 126/92 01/17/21 08:38 98.0 18 92 Nasal Cannula I&O- Last 24 Hours up to 6 AM 01/17/21 06:00 Intake Total 1530 ml Output Total 1150 ml Balance 380 ml Laboratory Data 24H LABS Laboratory Tests 2 01/17/21 06:23: Immature Granulocyte % (Auto) 0.4, Neutrophils (%) (Auto) 91.7H, Lymphocytes (%) (Auto) 2.6L, Monocytes (%) (Auto) 5.1, Eosinophils (%) (Auto) 0.0, Basophils (%) (Auto) 0.2, Neutrophils # (Auto) 5.2, Lymphocytes # (Auto) 0.2L, Monocytes # (Auto) 0.3, Eosinophils # (Auto) 0.0, Basophils # (Auto) 0.0, Nucleated Red Blood Cells % (auto) 0.0, Anion Gap 6L, Glomerular Filtration Rate 43.8, Calcium Level 8.6L, Magnesium Level 2.2, Total Bilirubin 0.4, Aspartate Amino Transf (AST/SGOT) 20, Alanine Aminotransferase (ALT/SGPT) 29, Alkaline Phosphatase 77, Total Protein 6.8, Albumin 2.4L, Albumin/Globulin Ratio 0.5L 01/17/21 11:32: Bedside Glucose (Misc Panel) 261H CBC/BMP Laboratory Tests 01/17/21 06:23 Microbiology Microbiology 01/15/21 Respiratory Virus Panel (PCR) ([facility]) - Final, Complete 01/14/21 Respiratory Virus Panel (PCR) ([facility]) - Final, Complete FRANCIE RAO MD Jan 17, 2021 13:24
[2021-01-17 14:00] VITALS: BP 112/75
--- NOTE | 2021-01-17 16:17 | IPNPDOC ---
Date Seen The patient was seen on 01/17/21. Progress Note SUBJECTIVE: Patient seen and examined at bedside. She is sitting in bed eating breakfast. Overnight had A. fib with RVR heart rate of 130. Was asymptomatic. Denies chest pain shortness of breath palpitations fevers chills. Lower extremity edema 2+ pulses. Patient has been putting out urine presently -160 fluid balance although her weight decreased from 65.4kg to 61.9 kg, therefore I am not sure if this is entirely correct. Patient reports that she has not been seeing a rheumatoligist, and has failed numerous treatments in the past including methotrexate and bioligics. She has been on leflunomide for nearly 10 years. 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 OBJECTIVE PHYSICAL EXAMINATION: VITAL SIGNS: please see below General: NAD, comfortable HEENT: PERRLA, EOMI, sclerae clear 2 L of oxygen via nasal cannula in place. Neck: supple, normal ROM, no JVD Respiratory: Crackles heard in bilateral lung bases, good inspiratory effort. CVS: RRR, normal S1, S2, no murmurs Abdo: soft, no masses, no hepatosplenomegaly, BS+, no rebound tenderness Extremities: 2+ pitting edema persistent bilateral lower extremities. No cyanosis. MSK: no joint deformities, normal ROM Neuro: no focal neuro deficits, moving all 4 extremities, CN2-12 intact. Strength 5/5 in all 4 extremities. No nystagmus. Psych: calm, cooperative, AAO x 3 LABORATORY DATA, IMAGING STUDIES, MICROBIOLOGY: Please see below. Echocardiogram: Completed on 01/14/2021 pending read. 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 Perhaps component of CHF exacerbation - on 2L O2 at home - c/w diuresis - pulmonology consult placed with Dr. Damian. - patient has severe interstitial pulmonary disease with possibe acute exacerbation or drug incudec pneumonitis - Dr. Garduno recommends stopping leflunomide. Patient will need close referral to rheumatology. - pulse with high dose steroids, solumedrol 1g daily x 3 days, continue with solumedrol 40 mg IV BID therafter - c/w start prophylactic ceftriaxone and azithromycin - patient will need rheum follow up. 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 VS, I&O, 24H, Fishbone Vital Signs/I&O Vital Signs Date Time Temp Pulse Resp B/P (MAP) Pulse Ox O2 Delivery O2 Flow Rate FiO2 01/17/21 14:00 97.7 82 17 112/75 (87) 91 Nasal Cannula 6.0 I&O- Last 24 Hours up to 6 AM 01/17/21 06:00 Intake Total 1530 ml Output Total 1150 ml Balance 380 ml Laboratory Data 24H LABS Laboratory Tests 2 01/17/21 06:23: Immature Granulocyte % (Auto) 0.4, Neutrophils (%) (Auto) 91.7H, Lymphocytes (%) (Auto) 2.6L, Monocytes (%) (Auto) 5.1, Eosinophils (%) (Auto) 0.0, Basophils (%) (Auto) 0.2, Neutrophils # (Auto) 5.2, Lymphocytes # (Auto) 0.2L, Monocytes # (Auto) 0.3, Eosinophils # (Auto) 0.0, Basophils # (Auto) 0.0, Nucleated Red Blood Cells % (auto) 0.0, Anion Gap 6L, Glomerular Filtration Rate 43.8, Calcium Level 8.6L, Magnesium Level 2.2, Total Bilirubin 0.4, Aspartate Amino Transf (AST/SGOT) 20, Alanine Aminotransferase (ALT/SGPT) 29, Alkaline Phosphatase 77, Total Protein 6.8, Albumin 2.4L, Albumin/Globulin Ratio 0.5L 01/17/21 11:32: Bedside Glucose (Misc Panel) 261H CBC/BMP Laboratory Tests 01/17/21 06:23 Microbiology Microbiology 01/15/21 Respiratory Virus Panel (PCR) (JOSEPHINE) - Final, Complete 01/14/21 Respiratory Virus Panel (PCR) (JOSEPHINE) - Final, Complete HEATHER JOSEPH MD Jan 17, 2021 16:17
[2021-01-17] MEDS: AZITHROMYCIN INJ 500 MG, VIAL MATE ADAPTER 1 EACH in NS 250 ML IV SCH (16:28)
[2021-01-17] MEDS: cefTRIAXone SOD 1 GM in D5W MINI-BAG PLUS 50 ML IV SCH (17:48)
[2021-01-17] MEDS: hydrOXYzine 10 MG TAB PO SCH (20:06)
[2021-01-17 22:00] VITALS: BP 124/81
[2021-01-18] MEDS: METOPROLOL TART 25 MG TABLET PO SCH ×2 (00:44→08:44)
[2021-01-18] MEDS: FUROSEMIDE 40MG/4ML VIAL (J1940) IV SCH ×3 (00:45→16:45)
[2021-01-18 03:56] VITALS: O2SAT 94
[2021-01-18 06:00] VITALS: BP 128/85
[2021-01-18 06:39] LABS: HEMATOCRIT 38.1 % (36.0-47.0); HEMOGLOBIN 11.9 g/dl (12.0-15.5); LYMPH # 0.2 10^3/uL (1.5-5.0); LYMPH % 2.1 % (24.0-44.0); MEAN CORPUSCULAR HEMOGLOBIN 31.5 pg (27.0-33.0); MEAN CORPUSCULAR HGB CONC 31.2 g/dl (32.0-36.5); MEAN CORPUSCULAR VOLUME 100.8 fl (80.0-96.0); MONO # 0.2 10^3/uL (0.0-0.8); MONO % 3.3 % (2.0-8.0); NEUTROPHILS # 6.6 10^3/uL (1.5-8.5); NEUTROPHILS % 94.2 % (36.0-66.0); PLATELET COUNT, AUTOMATED 156 10^3/uL (150-450); RED BLOOD COUNT 3.78 10^6/uL (4.00-5.40)
[2021-01-18 07:09] LABS: ALBUMIN 2.6 GM/DL (3.2-5.2); BILIRUBIN,TOTAL 0.5 MG/DL (0.2-1.0); CALCIUM LEVEL 8.4 MG/DL (8.8-10.2); CREATININE FOR GFR 1.18 MG/DL (0.55-1.30); GLOMERULAR FILTRATION RATE 46.3 (>32); MAGNESIUM LEVEL 2.1 MG/DL (1.8-2.4); POTASSIUM SERUM 3.1 MEQ/L (3.5-5.1); TOTAL PROTEIN 6.8 GM/DL (6.4-8.2)
[2021-01-18] MEDS ORDERED: POTASSIUM CHLORIDE 10MEQ SR TABLET PO ONE (08:15)
[2021-01-18] MEDS: HumaLOG INSULIN (NovoLOG) PER UNIT SC SCH ×4 (08:41→21:00)
[2021-01-18] MEDS: FERROUS SULFATE 325MG TAB PO SCH (08:42)
[2021-01-18] MEDS: OMEPRAZOLE 20 MG CAP PO SCH ×2 (08:42→21:14)
[2021-01-18] MEDS: POTASSIUM CHLORIDE 10MEQ SR TABLET PO SCH (08:43)
[2021-01-18] MEDS: CALCIUM/VITAMIN D 500 MG TAB PO SCH (08:43)
[2021-01-18] MEDS: MULTIVITAMINS/MINERALS THERAP 1 TAB PO SCH (08:43)
[2021-01-18] MEDS: APIXABAN 5 MG TAB (ELIQUIS) PO SCH ×2 (08:43→21:13)
[2021-01-18] MEDS: diltiaZEM **CD** 180 MG CAP PO SCH (08:44)
[2021-01-18] MEDS: BRIMONIDINE 0.1% OPHTH SOLN 5 ML OU SCH ×2 (08:45→21:14)
[2021-01-18] MEDS: methylPREDNISolone 40MG 1ML VIAL IV SCH ×2 (08:45→21:14)
--- NOTE | 2021-01-18 11:03 | IPNPDOC ---
Subjective Date Seen The patient was seen on 01/18/21. Subjective Chief Complaint/HPI Patient admits to experiencing less short of breath and dry cough. She denies fever, chills, chest pain, palpitation, orthopnea. Constitutional: Denies: Chills, Fever ENT: Denies: Dysphagia, Sore Throat Skin: Denies: Rash Pulmonary: Reports: Dyspnea; Denies: Cough Cardiovascular: Denies: Chest Pain, Palpitations, Orthopnea, Paroxysmal Noc. Dyspnea Gastrointestinal: Denies: Nausea, Abdominal Pain, Diarrhea Genitourinary: Denies: Dysuria Neurological: Denies: Weakness Objective Physical Examination General Exam: Positive: Alert, Cooperative, Mild Distress Eye Exam: Positive: Conjunctiva & lids normal; Negative: Sclera icteric ENT Exam: Positive: Atraumatic, Mucous membr. moist/pink Neck Exam: Positive: Supple; Negative: JVD Chest Exam: Positive: Normal air movement, Wheezing (bilateral wheezing) Heart Exam: Positive: Rate Normal, Irregular Rhythm; Negative: Murmurs Abdomen Exam: Positive: Normal bowel sounds, Soft; Negative: Tenderness Extremity Exam: Positive: Edema (2 to 3 +pitting edema bilaterally, right worse than left); Negative: Cyanosis Skin Exam: Positive: Nl turgor and temperature; Negative: Breakdown Neuro Exam: Positive: Normal Speech, Normal Tone Psych Exam: Positive: Mental status NL, Mood NL, Memory Intact, Oriented x 3 Assessment /Plan Assessment This is a pleasant 86-year-old lady with past medical history of rheumatoid arthritis, pulmonary fibrosis, atrial fibrillation on Eliquis, congestive heart failure, chronic kidney, chronic hypoxic respiratory failure on 2 L oxygen at home disease who presented to hospital yesterday with complaints of shortness of breath and cough. 1. 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 Less likely pneumonia given the lack of clinical symptoms. 2. Decompensated right heart failure with features of group 3 pulmonary hypertension. 3. Pulmonary fibrosis with traction bronchiectasis 4. Atrial fibrillation 5. History of rheumatoid arthritis on leflunomide and prednisone 5 mg 6. Acute on chronic hypoxic respiratory failure Plan/VTE VTE Prophylaxis Ordered?: Yes Plan -Continue aggressive diuresis until we start seeing a rise in creatinine. Strict monitoring I's and O's and renal function. -She received 3 days of pulse steroid. She is currently on 40 mg methylprednisone IV twice daily. We are currently holding leflunomide given this may be a potential cause of underlying ILD. Recommend rheumatology consultation to consider for alternative immunosuppressive agent but this is not a urgent consult as patient will remain on systemic corticosteroid high-dose until she is more stable. -To complete total of 5 days of empiric antibiotic for community-acquired pneumonia. Disposition Continue hospital care. VS, I&O, 24H, Fishbone Vital Signs/I&O Vital Signs Date Time Temp Pulse Resp B/P (MAP) Pulse Ox O2 Delivery O2 Flow Rate FiO2 01/18/21 08:44 114 130/86 01/18/21 07:56 Nasal Cannula 6.0 01/18/21 07:55 78 01/18/21 06:00 97.6 17 I&O- Last 24 Hours up to 6 AM 01/18/21 06:00 Intake Total 2259 ml Output Total 900 ml Balance 1359 ml Laboratory Data 24H LABS Laboratory Tests 2 01/17/21 11:32: Bedside Glucose (Misc Panel) 261H 01/17/21 16:37: Bedside Glucose (Misc Panel) 164H 01/17/21 20:05: Bedside Glucose (Misc Panel) 175H 01/18/21 05:37: Immature Granulocyte % (Auto) 0.4, Neutrophils (%) (Auto) 94.2H, Lymphocytes (%) (Auto) 2.1L, Monocytes (%) (Auto) 3.3, Eosinophils (%) (Auto) 0.0, Basophils (%) (Auto) 0.0, Neutrophils # (Auto) 6.6, Lymphocytes # (Auto) 0.2L, Monocytes # (Auto) 0.2, Eosinophils # (Auto) 0.0, Basophils # (Auto) 0.0, Nucleated Red Blood Cells % (auto) 0.0, Anion Gap 3L, Glomerular Filtration Rate 46.3, Calcium Level 8.4L, Magnesium Level 2.1, Total Bilirubin 0.5, Aspartate Amino Transf (AST/SGOT) 33, Alanine Aminotransferase (ALT/SGPT) 45, Alkaline Phosphatase 78, Total Protein 6.8, Albumin 2.6L, Albumin/Globulin Ratio 0.6L CBC/BMP Laboratory Tests 01/18/21 05:37 Microbiology Microbiology 01/15/21 Respiratory Virus Panel (PCR) (JOSEPHINE) - Final, Complete 01/14/21 Respiratory Virus Panel (PCR) (JOSEPHINE) - Final, Complete FRANCIE RAO MD Jan 18, 2021 11:03
--- NOTE | 2021-01-18 13:32 | IPNPDOC ---
Text Note Date of Service The patient was seen on 01/18/21. NOTE Subjective: No any acute events overnight. Patient stated with your breathing improved today. Patient reported 4 bowel movements overnight with liquid stool Objective: GENERAL APPEARANCE: NAD HEENT: no scleral icterus, plus JVD, EOMI CARDIOVASCULAR: Irregularly irregular LUNGS: CTA ABDOMEN: soft & not tender w palpation MUSCULOSKELETAL: no cyanosis, +2 of lower extremities swelling INTEGUMENT: no generalized pallor NEUROLOGICAL: cranial nerve function from 2-12 intact, follows commands, speech not dysarthric Assessment and plan: Patient is 86 years old female with past medical history of rheumatoid arthritis, pulmonary fibrosis, atrial fibrillation on Eliquis, congestive heart failure, chronic kidney, chronic hypoxic respiratory failure on 2 L oxygen at home disease who presented to hospital yesterday with complaints of shortness of breath and cough. Interstitial lung disease exacerbation/acute on chronic hypoxemic respiratory failure/Pulmonary fibrosis with traction bronchiectasis Most likely multifactorial secondary to rheumatoid arthritis, prolonged intake of amiodarone, CHF exacerbation. Also leflunomide can be cause of interstitial pneumonitis, pulmonary fibrosis and pulmonary hypertension. Pulmonology team on board. Recommended to continue 40 mg of methylprednisolone IV twice daily. Leflunomide on hold. Close follow-up with arborist climber in the outpatient settings Continue antibiotic therapy for 5 days in total Acute diastolic CHF I's and O's Continue diuresis with Lasix IV every 8 hours Atrial fibrillation with RVR Patient was tachycardic in the morning I increased the dose of metoprolol to 50 mg every 8 hours Continue anticoagulation with Eliquis Acute on chronic renal failure Resolved Continue to monitor Rheumatoid arthritis Continue methylprednisolone Leflunomide on hold GI bleed Stool was positive for occult blood Continue monitoring hemoglobin. Today hemoglobin of 11.9 Continue PPI. I increased the dose of omeprazole to 40 mg twice daily Patient will need follow-up with GI team in the outpatient settings DVT prophylaxis: Patient on Eliquis VS,Fishbone, I+O VS, Fishbone, I+O Laboratory Tests 01/18/21 05:37 Vital Signs Date Time Temp Pulse Resp B/P (MAP) Pulse Ox O2 Delivery O2 Flow Rate FiO2 01/18/21 08:44 114 130/86 01/18/21 07:56 Nasal Cannula 6.0 01/18/21 07:55 78 01/18/21 06:00 97.6 17 I&O- Last 24 Hours up to 6 AM 01/18/21 06:00 Intake Total 2259 ml Output Total 900 ml Balance 1359 ml ROZ ALSTON DO Jan 18, 2021 13:32
[2021-01-18 14:00] VITALS: BP 126/83
[2021-01-18] MEDS: METOPROLOL TART 50 MG TAB PO SCH ×2 (14:44→21:14)
[2021-01-18] MEDS: cefTRIAXone SOD 1 GM in D5W MINI-BAG PLUS 50 ML IV SCH (16:45)
[2021-01-18] MEDS: AZITHROMYCIN INJ 500 MG, VIAL MATE ADAPTER 1 EACH in NS 250 ML IV SCH (16:45)
[2021-01-18 21:00] VITALS: BP 133/97; O2SAT 94
[2021-01-18] MEDS: hydrOXYzine 10 MG TAB PO SCH (21:13)
[2021-01-18] MEDS: LATANOPROST 0.005% OPHTH SOLN 2.5 ML OU SCH (21:14)
[2021-01-18] MEDS ORDERED: OXYMETAZOLINE 0.05% NASAL SPRAY (AFRIN) PRN (23:40)
[2021-01-19] MEDS: FUROSEMIDE 40MG/4ML VIAL (J1940) IV SCH ×3 (01:55→17:51)
[2021-01-19] MEDS: SODIUM CHLORIDE NASAL 0.65% SPRAY BTL (OCEAN) PRN ×2 (01:55→21:20)
[2021-01-19] MEDS: METOPROLOL TART 50 MG TAB PO SCH ×3 (05:16→17:52)
[2021-01-19 06:15] LABS: BASO % 0.1 % (0.0-1.0); HEMATOCRIT 37.2 % (36.0-47.0); HEMOGLOBIN 11.8 g/dl (12.0-15.5); LYMPH # 0.2 10^3/uL (1.5-5.0); LYMPH % 2.3 % (24.0-44.0); MEAN CORPUSCULAR HEMOGLOBIN 31.8 pg (27.0-33.0); MEAN CORPUSCULAR HGB CONC 31.7 g/dl (32.0-36.5); MEAN CORPUSCULAR VOLUME 100.3 fl (80.0-96.0); MONO # 0.3 10^3/uL (0.0-0.8); MONO % 3.6 % (2.0-8.0); NEUTROPHILS # 7.7 10^3/uL (1.5-8.5); NEUTROPHILS % 93.4 % (36.0-66.0); PLATELET COUNT, AUTOMATED 160 10^3/uL (150-450); RED BLOOD COUNT 3.71 10^6/uL (4.00-5.40); WHITE BLOOD COUNT 8.3 10^3/uL (4.0-10.0)
[2021-01-19 06:22] LABS: INR 1.54; PROTHROMBIN TIME 18.9 SECONDS (12.7-14.5)
[2021-01-19 06:23] LABS: PARTIAL THROMBOPLASTIN TIME 32.4 SECONDS (25.9-37.0)
[2021-01-19 07:13] LABS: ALBUMIN 2.4 GM/DL (3.2-5.2); BILIRUBIN,TOTAL 0.5 MG/DL (0.2-1.0); CALCIUM LEVEL 8.7 MG/DL (8.8-10.2); CREATININE FOR GFR 0.96 MG/DL (0.55-1.30); GLOMERULAR FILTRATION RATE 58.8 (>32); MAGNESIUM LEVEL 1.8 MG/DL (1.8-2.4); POTASSIUM SERUM 2.6 MEQ/L (3.5-5.1); TOTAL PROTEIN 6.5 GM/DL (6.4-8.2)
[2021-01-19] MEDS ORDERED: POTASSIUM CHLORIDE 10MEQ SR TABLET PO ONE (08:00)
[2021-01-19] MEDS ORDERED: MAG SULF 1GM/100ML (MAG RUN) 1 GM in IV 1 EA IV SCH (08:00)
[2021-01-19] MEDS: BRIMONIDINE 0.1% OPHTH SOLN 5 ML OU SCH ×2 (08:23→21:20)
[2021-01-19] MEDS: methylPREDNISolone 40MG 1ML VIAL IV SCH ×2 (08:23→21:20)
[2021-01-19] MEDS: HumaLOG INSULIN (NovoLOG) PER UNIT SC SCH ×4 (08:25→21:00)
[2021-01-19] MEDS: MULTIVITAMINS/MINERALS THERAP 1 TAB PO SCH (08:26)
[2021-01-19] MEDS: CALCIUM/VITAMIN D 500 MG TAB PO SCH (08:26)
[2021-01-19] MEDS: FERROUS SULFATE 325MG TAB PO SCH (08:27)
[2021-01-19] MEDS: OMEPRAZOLE 20 MG CAP PO SCH ×2 (08:27→21:20)
[2021-01-19] MEDS: diltiaZEM **CD** 180 MG CAP PO SCH (08:28)
[2021-01-19] MEDS: MAGNESIUM OXIDE 400MG TAB (MAG-OX) PO SCH (08:28)
[2021-01-19] MEDS: APIXABAN 5 MG TAB (ELIQUIS) PO SCH ×2 (08:28→21:20)
[2021-01-19] MEDS ORDERED: POTASSIUM CHLORIDE 10MEQ SR TABLET PO SCH (09:00)
[2021-01-19] MEDS ORDERED: KCL 10MEQ/100ML SWI (KRUN) 10 MEQ in IV 1 EA IV SCH (09:00)
--- NOTE | 2021-01-19 11:00 | IPNPDOC ---
Subjective Date Seen The patient was seen on 01/19/21. Subjective Chief Complaint/HPI Patient states she had a bad night last night. She was up all night trying to urinate and defecate. Her breathing is still feeling about the same. She denies a cough, fever, chills, chest pain. General: Denies: Chills Constitutional: Denies: Chills, Fever ENT: Denies: Head Aches, Sore Throat Skin: Denies: Rash Pulmonary: Reports: Dyspnea; Denies: Cough Cardiovascular: Denies: Chest Pain, Palpitations, Orthopnea Gastrointestinal: Denies: Nausea, Vomiting, Abdominal Pain, Diarrhea Musculoskeletal: Denies: Joint Pain, Muscle Pain Neurological: Denies: Weakness, Numbness Objective Physical Examination General Exam: Positive: Alert, Cooperative, Mild Distress Eye Exam: Positive: Conjunctiva & lids normal; Negative: Sclera icteric ENT Exam: Positive: Atraumatic, Mucous membr. moist/pink Neck Exam: Positive: Supple; Negative: JVD Chest Exam: Positive: Rhonchi (Bilateral) Heart Exam: Positive: Tachycardic, Irregular Rhythm; Negative: Murmurs Abdomen Exam: Positive: Normal bowel sounds, Soft; Negative: Tenderness Extremity Exam: Positive: Edema (2 to 3 +pitting edema bilaterally, right worse than left); Negative: Cyanosis Skin Exam: Positive: Nl turgor and temperature; Negative: Breakdown Neuro Exam: Positive: Normal Speech, Normal Tone Psych Exam: Positive: Mental status NL, Mood NL, Memory Intact, Oriented x 3 Assessment /Plan Assessment This is a pleasant 86-year-old lady with past medical history of rheumatoid arthritis, pulmonary fibrosis, atrial fibrillation on Eliquis, congestive heart failure, chronic kidney, chronic hypoxic respiratory failure on 2 L oxygen at home disease who presented to hospital yesterday with complaints of shortness of breath and cough. 1. 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 Less likely pneumonia given the lack of clinical symptoms. 2. Decompensated right heart failure with features of group 3 pulmonary hypertension. 3. Pulmonary fibrosis with traction bronchiectasis 4. Atrial fibrillation 5. History of rheumatoid arthritis on leflunomide and prednisone 5 mg 6. Acute on chronic hypoxic respiratory failure Plan/VTE VTE Prophylaxis Ordered?: Yes Plan -Continue aggressive diuresis until we start seeing a rise in creatinine. Stric t monitoring I's and O's and renal function. -She received 3 days of pulse steroid. She is currently on 40 mg methylprednisone IV twice daily. We are currently holding leflunomide given this may be a potential cause of underlying ILD. Recommend rheumatology consultation to consider for alternative immunosuppressive agent but this is not a urgent consult as patient will remain on systemic corticosteroid high-dose until she is more stable. -To complete total of 5 days of empiric antibiotic for community-acquired pneumonia. -Recommend increasing diltiazem in order to optimize rate control for her underlying atrial fibrillation. Disposition Continue hospital care. VS, I&O, 24H, Fishbone Vital Signs/I&O Vital Signs Date Time Temp Pulse Resp B/P (MAP) Pulse Ox O2 Delivery O2 Flow Rate FiO2 01/19/21 08:37 6.0 01/19/21 08:28 108 133/96 01/19/21 06:00 97.7 17 91 Nasal Cannula I&O- Last 24 Hours up to 6 AM 01/19/21 06:00 Intake Total 2095 ml Output Total 200 ml Balance 1895 ml Laboratory Data 24H LABS Laboratory Tests 2 01/18/21 11:47: Bedside Glucose (Misc Panel) 265H 01/18/21 16:55: Bedside Glucose (Misc Panel) 119H 01/18/21 21:07: Bedside Glucose (Misc Panel) 160H 01/19/21 05:37: Immature Granulocyte % (Auto) 0.6, Neutrophils (%) (Auto) 93.4H, Lymphocytes (%) (Auto) 2.3L, Monocytes (%) (Auto) 3.6, Eosinophils (%) (Auto) 0.0, Basophils (%) (Auto) 0.1, Neutrophils # (Auto) 7.7, Lymphocytes # (Auto) 0.2L, Monocytes # (Auto) 0.3, Eosinophils # (Auto) 0.0, Basophils # (Auto) 0.0, Nucleated Red Blood Cells % (auto) 0.0, Prothrombin Time 18.9H, Prothromb Time International Ratio 1.54, Activated Partial Thromboplast Time 32.4, Anion Gap 1L, Glomerular Filtration Rate 58.8, Calcium Level 8.7L, Magnesium Level 1.8, Total Bilirubin 0.5, Aspartate Amino Transf (AST/SGOT) 22, Alanine Aminotransferase (ALT/SGPT) 42, Alkaline Phosphatase 78, Total Protein 6.5, Albumin 2.4L, Albumin/Globulin Ratio 0.6L CBC/BMP Laboratory Tests 01/19/21 05:37 Microbiology Microbiology 01/18/21 Stool Occult Blood (JOSEPHINE) - Final, Complete 01/15/21 Respiratory Virus Panel (PCR) (JOSEPHINE) - Final, Complete 01/14/21 Respiratory Virus Panel (PCR) (JOSEPHINE) - Final, Complete FRANCIE RAO MD Jan 19, 2021 11:00
--- NOTE | 2021-01-19 13:25 | IPNPDOC ---
Text Note Date of Service The patient was seen on 01/19/21. NOTE Subjective: Patient stated that she had 2 nosebleeds overnight. She stated that her breathing is about the same. Objective: GENERAL APPEARANCE: NAD HEENT: no scleral icterus, plus JVD, EOMI CARDIOVASCULAR: Irregularly irregular LUNGS: CTA ABDOMEN: soft & not tender w palpation MUSCULOSKELETAL: no cyanosis, +2 of lower extremities swelling INTEGUMENT: no generalized pallor NEUROLOGICAL: cranial nerve function from 2-12 intact, follows commands, speech not dysarthric Assessment and plan: Patient is 86 years old female with past medical history of rheumatoid arthritis, pulmonary fibrosis, atrial fibrillation on Eliquis, congestive heart failure, chronic kidney, chronic hypoxic respiratory failure on 2 L oxygen at home disease who presented to hospital yesterday with complaints of shortness of breath and cough. Interstitial lung disease exacerbation/acute on chronic hypoxemic respiratory failure/Pulmonary fibrosis with traction bronchiectasis Most likely multifactorial secondary to rheumatoid arthritis, prolonged intake of amiodarone, CHF exacerbation. Also leflunomide can be cause of interstitial pneumonitis, pulmonary fibrosis and pulmonary hypertension. Pulmonology team on board. Recommended to continue 40 mg of methylprednisolone IV twice daily. Leflunomide on hold. Close follow-up with scuba diver in the outpatient settings Continue antibiotic therapy for 5 days in total Acute diastolic CHF I's and O's Continue diuresis with Lasix IV every 8 hours Atrial fibrillation with RVR Patient was tachycardic in the morning. Potassium was 2.8. Will replace potassium we will check a magnesium. Hopefully replacement of electrolytes will help to control heart rate. We will check EKG for QTC prolongation. I increased the dose of metoprolol to 50 mg every 6 hours. Continue anticoagulation with Eliquis Acute on chronic renal failure Resolved Continue to monitor Hypokalemia Aggressive replacement Rheumatoid arthritis Continue methylprednisolone Leflunomide on hold GI bleed Stool was positive for occult blood Continue monitoring hemoglobin. Hemoglobin stable, no indication for blood transfusion Continue PPI. I increased the dose of omeprazole to 40 mg twice daily Patient will need follow-up with GI team in the outpatient settings DVT prophylaxis: Patient on Eliquis VS,Fishbone, I+O VS, Fishbone, I+O Laboratory Tests 01/19/21 05:37 Vital Signs Date Time Temp Pulse Resp B/P (MAP) Pulse Ox O2 Delivery O2 Flow Rate FiO2 01/19/21 08:37 6.0 01/19/21 08:28 108 133/96 01/19/21 06:00 97.7 17 91 Nasal Cannula I&O- Last 24 Hours up to 6 AM 01/19/21 05:59 Intake Total 2095 ml Output Total 600 ml Balance 1495 ml ROZ ALSTON DO Jan 19, 2021 13:25
[2021-01-19 13:55] LABS: CALCIUM LEVEL 8.9 MG/DL (8.8-10.2); CREATININE FOR GFR 1.12 MG/DL (0.55-1.30); GLOMERULAR FILTRATION RATE 49.2 (>32); POTASSIUM SERUM 3.5 MEQ/L (3.5-5.1)
[2021-01-19 14:00] VITALS: BP 125/88
[2021-01-19] MEDS ORDERED: METOCLOPRAMIDE INJ 10MG/2ML VIAL (J2765 PER 1) IV PRN (14:15)
[2021-01-19] MEDS: cefTRIAXone SOD 1 GM in D5W MINI-BAG PLUS 50 ML IV SCH (17:51)
[2021-01-19 19:15] LABS: CREATININE FOR GFR 1.11 MG/DL (0.55-1.30); GLOMERULAR FILTRATION RATE 49.7 (>32); POTASSIUM SERUM 3.5 MEQ/L (3.5-5.1)
[2021-01-19 20:00] VITALS: BP 142/93; O2SAT 95
[2021-01-19] MEDS: hydrOXYzine 10 MG TAB PO SCH (21:20)
[2021-01-19] MEDS: LATANOPROST 0.005% OPHTH SOLN 2.5 ML OU SCH (21:20)
[2021-01-20] MEDS: METOPROLOL TART 50 MG TAB PO SCH ×4 (00:36→17:37)
[2021-01-20] MEDS: FUROSEMIDE 40MG/4ML VIAL (J1940) IV SCH ×3 (00:36→17:38)
[2021-01-20 01:54] LABS: CALCIUM LEVEL 8.4 MG/DL (8.8-10.2); GLOMERULAR FILTRATION RATE 56.1 (>32)
[2021-01-20 06:00] VITALS: BP 136/88
[2021-01-20 06:41] LABS: BASO % 0.1 % (0.0-1.0); HEMATOCRIT 39.1 % (36.0-47.0); HEMOGLOBIN 12.2 g/dl (12.0-15.5); LYMPH # 0.2 10^3/uL (1.5-5.0); LYMPH % 2.7 % (24.0-44.0); MEAN CORPUSCULAR HEMOGLOBIN 31.2 pg (27.0-33.0); MEAN CORPUSCULAR HGB CONC 31.2 g/dl (32.0-36.5); MONO # 0.4 10^3/uL (0.0-0.8); MONO % 4.5 % (2.0-8.0); NEUTROPHILS # 7.6 10^3/uL (1.5-8.5); NEUTROPHILS % 91.6 % (36.0-66.0); PLATELET COUNT, AUTOMATED 169 10^3/uL (150-450); RED BLOOD COUNT 3.91 10^6/uL (4.00-5.40); WHITE BLOOD COUNT 8.3 10^3/uL (4.0-10.0)
[2021-01-20 08:01] LABS: ALBUMIN 2.6 GM/DL (3.2-5.2); BILIRUBIN,TOTAL 0.6 MG/DL (0.2-1.0); CALCIUM LEVEL 8.7 MG/DL (8.8-10.2); CREATININE FOR GFR 1.02 MG/DL (0.55-1.30); GLOMERULAR FILTRATION RATE 54.8 (>32); MAGNESIUM LEVEL 2.1 MG/DL (1.8-2.4); POTASSIUM SERUM 3.1 MEQ/L (3.5-5.1); TOTAL PROTEIN 6.6 GM/DL (6.4-8.2)
[2021-01-20] MEDS: HumaLOG INSULIN (NovoLOG) PER UNIT SC SCH ×4 (08:09→20:18)
[2021-01-20] MEDS ORDERED: METOPROLOL 5 MG/5 ML VIAL IV PRN (08:15)
[2021-01-20 08:50] VITALS: BP 140/85
[2021-01-20] MEDS ORDERED: DIGOXIN INJ 0.5 MG/2 ML AMP (J1160) IV SCH (09:00)
--- NOTE | 2021-01-20 11:10 | IPNPDOC ---
Subjective Date Seen The patient was seen on 01/20/21. Subjective Chief Complaint/HPI Patient had another bad night last night. She couldn't sleep and was feeling palpitation due to her uncontrolled rapid A-fib. She denies of fever, chills, cough, chest pain, orthopnea. General: Denies: Chills Constitutional: Denies: Chills, Fever ENT: Denies: Head Aches Skin: Denies: Rash Pulmonary: Reports: Dyspnea; Denies: Cough Cardiovascular: Reports: Palpitations; Denies: Chest Pain, Orthopnea Gastrointestinal: Denies: Nausea, Vomiting, Abdominal Pain, Diarrhea Neurological: Denies: Weakness Objective Physical Examination General Exam: Positive: Alert, Cooperative, Mild Distress Eye Exam: Positive: Conjunctiva & lids normal; Negative: Sclera icteric ENT Exam: Positive: Atraumatic, Mucous membr. moist/pink Neck Exam: Positive: Supple; Negative: JVD Chest Exam: Positive: Rhonchi (Bilateral) Heart Exam: Positive: Tachycardic, Irregular Rhythm; Negative: Murmurs Abdomen Exam: Positive: Normal bowel sounds, Soft; Negative: Tenderness Extremity Exam: Positive: Edema (Improved edema ); Negative: Cyanosis Skin Exam: Positive: Nl turgor and temperature; Negative: Breakdown Neuro Exam: Positive: Normal Speech, Normal Tone Psych Exam: Positive: Mental status NL, Mood NL, Memory Intact, Oriented x 3 Assessment /Plan Assessment This is a pleasant 86-year-old lady with past medical history of rheumatoid arthritis, pulmonary fibrosis, atrial fibrillation on Eliquis, congestive heart failure, chronic kidney, chronic hypoxic respiratory failure on 2 L oxygen at home disease who presented to hospital yesterday with complaints of shortness of breath and cough. 1. 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 Less likely pneumonia given the lack of clinical symptoms. 2. Decompensated right heart failure with features of group 3 pulmonary hypertension. 3. Pulmonary fibrosis with traction bronchiectasis 4. Atrial fibrillation 5. History of rheumatoid arthritis on leflunomide and prednisone 5 mg 6. Acute on chronic hypoxic respiratory failure Plan/VTE VTE Prophylaxis Ordered?: Yes Plan -She completed 3 days of pulse dose steroid. She's now on methylprednisone 40mg BID. Respiratory status is still about the same. -Continue with aggressive diuresis with strict monitoring of I&O's and electrolytes. -Needs aggressive management of rapid A-fib. Recommend increasing dose of cardizem. She's also getting digoxin. Disposition Patient is being transferred to PCU. VS, I&O, 24H, Doug Vital Signs/I&O Vital Signs Date Time Temp Pulse Resp B/P (MAP) Pulse Ox O2 Delivery O2 Flow Rate FiO2 01/20/21 10:00 5.0 01/20/21 08:50 97.3 120 19 140/85 (103) 92 Nasal Cannula I&O- Last 24 Hours up to 6 AM 01/20/21 06:00 Intake Total 1285 ml Output Total 400 ml Balance 885 ml Laboratory Data 24H LABS Laboratory Tests 2 01/19/21 11:26: Bedside Glucose (Misc Panel) 270H 01/19/21 13:07: Anion Gap 5L, Glomerular Filtration Rate 49.2, Calcium Level 8.9 01/19/21 16:31: Bedside Glucose (Misc Panel) 104 01/19/21 18:37: Anion Gap 2L, Glomerular Filtration Rate 49.7, Calcium Level 9.0 01/19/21 19:29: Bedside Glucose (Misc Panel) 215H 01/20/21 01:22: Anion Gap 3L, Glomerular Filtration Rate 56.1, Calcium Level 8.4L 01/20/21 06:05: Anion Gap 4L, Glomerular Filtration Rate 54.8, Calcium Level 8.7L, Immature Gra nulocyte % (Auto) 1.1, Neutrophils (%) (Auto) 91.6H, Lymphocytes (%) (Auto) 2.7L, Monocytes (%) (Auto) 4.5, Eosinophils (%) (Auto) 0.0, Basophils (%) (Auto) 0.1, Neutrophils # (Auto) 7.6, Lymphocytes # (Auto) 0.2L, Monocytes # (Auto) 0.4, Eosinophils # (Auto) 0.0, Basophils # (Auto) 0.0, Nucleated Red Blood Cells % (auto) 0.0, Magnesium Level 2.1, Total Bilirubin 0.6, Aspartate Amino Transf (AST/SGOT) 21, Alanine Aminotransferase (ALT/SGPT) 41, Alkaline Phosphatase 70, Total Protein 6.6, Albumin 2.6L, Albumin/Globulin Ratio 0.7L CBC/BMP Laboratory Tests 01/19/21 13:07 01/19/21 18:37 01/20/21 01:22 01/20/21 06:05 Microbiology Microbiology 01/18/21 Stool Occult Blood (JOSEPHINE) - Final, Complete 01/15/21 Respiratory Virus Panel (PCR) (JOSEPHINE) - Final, Complete 01/14/21 Respiratory Virus Panel (PCR) (JOSEPHINE) - Final, Complete FRANCIE RAO MD Jan 20, 2021 11:10
[2021-01-20] MEDS: POTASSIUM CHLORIDE 10MEQ SR TABLET PO SCH ×2 (11:45→22:48)
[2021-01-20] MEDS: diltiaZEM **CD** 180 MG CAP PO SCH (11:46)
[2021-01-20] MEDS: OMEPRAZOLE 20 MG CAP PO SCH ×2 (11:46→20:14)
[2021-01-20] MEDS: MAGNESIUM OXIDE 400MG TAB (MAG-OX) PO SCH (11:47)
[2021-01-20] MEDS: MULTIVITAMINS/MINERALS THERAP 1 TAB PO SCH (11:47)
[2021-01-20] MEDS: CALCIUM/VITAMIN D 500 MG TAB PO SCH (11:47)
[2021-01-20] MEDS: FERROUS SULFATE 325MG TAB PO SCH (11:47)
[2021-01-20] MEDS: APIXABAN 5 MG TAB (ELIQUIS) PO SCH ×2 (11:47→20:14)
[2021-01-20] MEDS: methylPREDNISolone 40MG 1ML VIAL IV SCH ×2 (11:51→20:15)
--- NOTE | 2021-01-20 11:59 | IPNPDOC ---
Text Note Date of Service The patient was seen on 01/20/21. NOTE Subjective: Patient complains of palpitations overnight. I was informed by mikala rse that patient did not received morning dose of diltiazem until 11 AM. Patient will be transferred to PCU. Objective: GENERAL APPEARANCE: NAD HEENT: no scleral icterus, plus JVD, EOMI CARDIOVASCULAR: Irregularly irregular with heart rate around 125 LUNGS: CTA ABDOMEN: soft & not tender w palpation MUSCULOSKELETAL: no cyanosis, +2 of lower extremities swelling INTEGUMENT: no generalized pallor NEUROLOGICAL: cranial nerve function from 2-12 intact, follows commands, speech not dysarthric Assessment and plan: Patient is 86 years old female with past medical history of rheumatoid arthritis, pulmonary fibrosis, atrial fibrillation on Eliquis, congestive heart failure, chronic kidney, chronic hypoxic respiratory failure on 2 L oxygen at home disease who presented to hospital yesterday with complaints of shortness of breath and cough. Interstitial lung disease exacerbation/acute on chronic hypoxemic respiratory failure/Pulmonary fibrosis with traction bronchiectasis Most likely multifactorial secondary to rheumatoid arthritis, prolonged intake of amiodarone, CHF exacerbation. Also leflunomide can be cause of interstitial pneumonitis, pulmonary fibrosis and pulmonary hypertension. Pulmonology team on board. Continue methylprednisolone 40 mg twice daily. Leflunomide on hold. Close follow-up with packager head in the outpatient settings Acute diastolic CHF I's and O's Continue diuresis with Lasix IV every 8 hours Atrial fibrillation with RVR I increased the dose of metoprolol to 50 mg every 6 hours. Continue diltiazem Continue anticoagulation with Eliquis I talked to Dr. Rosario he recommended to start digoxin IV 0.25 every 6 hours Appreciate/agree with textile machinery sales representative consult Acute on chronic renal failure Resolved Continue to monitor Hypokalemia Aggressive replacement Rheumatoid arthritis Continue methylprednisolone Leflunomide on hold GI bleed Stool was positive for occult blood Continue monitoring hemoglobin. Hemoglobin stable, no indication for blood transfusion Continue PPI. I increased the dose of omeprazole to 40 mg twice daily Patient will need follow-up with GI team in the outpatient settings DVT prophylaxis: Patient on Eliquis VS,Fishbone, I+O VS, Fishbone, I+O Laboratory Tests 01/19/21 13:07 01/19/21 18:37 01/20/21 01:22 01/20/21 06:05 Vital Signs Date Time Temp Pulse Resp B/P (MAP) Pulse Ox O2 Delivery O2 Flow Rate FiO2 01/20/21 11:46 120 140/85 01/20/21 10:00 5.0 01/20/21 08:50 97.3 19 92 Nasal Cannula I&O- Last 24 Hours up to 6 AM 01/20/21 05:59 Intake Total 1135 ml Output Total 400 ml Balance 735 ml ROZ ALSTON DO Jan 20, 2021 11:59
[2021-01-20] MEDS: LATANOPROST 0.005% OPHTH SOLN 2.5 ML OU SCH ×2 (12:05→22:44)
[2021-01-20] MEDS: BRIMONIDINE 0.1% OPHTH SOLN 5 ML OU SCH ×2 (12:12→21:55)
[2021-01-20 12:35] VITALS: BP 124/94
[2021-01-20 15:17] VITALS: BP 126/68
[2021-01-20 16:42] LABS: CREATININE FOR GFR 1.02 MG/DL (0.55-1.30); GLOMERULAR FILTRATION RATE 54.8 (>32); POTASSIUM SERUM 2.8 MEQ/L (3.5-5.1)
[2021-01-20] MEDS ORDERED: POTASSIUM CHLORIDE 10MEQ SR TABLET PO ONE ×2 (16:50→19:00)
[2021-01-20] MEDS ORDERED: KCL 10MEQ/100ML SWI (KRUN) 10 MEQ in IV 1 EA IV ONE (16:50)
[2021-01-20] MEDS: DIGOXIN INJ 0.5 MG/2 ML AMP (J1160) IV SCH (17:37)
[2021-01-20 20:10] VITALS: BP 129/81
[2021-01-20] MEDS: hydrOXYzine 10 MG TAB PO SCH (20:18)
[2021-01-20 21:42] LABS: CALCIUM LEVEL 8.7 MG/DL (8.8-10.2); CREATININE FOR GFR 1.15 MG/DL (0.55-1.30); GLOMERULAR FILTRATION RATE 47.7 (>32); POTASSIUM SERUM 3.4 MEQ/L (3.5-5.1)
--- NOTE | 2021-01-20 22:39 | ECGEPIP ---
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
[2021-01-21] VITALS (19 sets, daily range): BP systolic 115–160; BP diastolic 73–98; O2SAT 90–95
[2021-01-21] MEDS: METOPROLOL TART 50 MG TAB PO SCH ×4 (00:33→20:24)
[2021-01-21] MEDS: DIGOXIN INJ 0.5 MG/2 ML AMP (J1160) IV SCH ×2 (00:34→06:14)
[2021-01-21 02:35] LABS: CALCIUM LEVEL 9.1 MG/DL (8.8-10.2); CREATININE FOR GFR 1.03 MG/DL (0.55-1.30); GLOMERULAR FILTRATION RATE 54.2 (>32); POTASSIUM SERUM 4.2 MEQ/L (3.5-5.1)
[2021-01-21] MEDS ORDERED: FUROSEMIDE 40MG/4ML VIAL (J1940) IV SCH (09:00)
[2021-01-21 09:11] LABS: BASO % 0.3 % (0.0-1.0); HEMATOCRIT 45.7 % (36.0-47.0); HEMOGLOBIN 14.3 g/dl (12.0-15.5); LYMPH # 0.3 10^3/uL (1.5-5.0); MEAN CORPUSCULAR HEMOGLOBIN 31.8 pg (27.0-33.0); MEAN CORPUSCULAR HGB CONC 31.3 g/dl (32.0-36.5); MEAN CORPUSCULAR VOLUME 101.6 fl (80.0-96.0); MONO # 0.7 10^3/uL (0.0-0.8); MONO % 6.5 % (2.0-8.0); NEUTROPHILS # 9.3 10^3/uL (1.5-8.5); NEUTROPHILS % 88.6 % (36.0-66.0); PLATELET COUNT, AUTOMATED 188 10^3/uL (150-450); WHITE BLOOD COUNT 10.5 10^3/uL (4.0-10.0)
[2021-01-21] MEDS: methylPREDNISolone 40MG 1ML VIAL IV SCH ×2 (10:00→20:23)
[2021-01-21] MEDS: HumaLOG INSULIN (NovoLOG) PER UNIT SC SCH ×4 (10:01→20:17)
[2021-01-21] MEDS: POTASSIUM CHLORIDE 10MEQ SR TABLET PO SCH ×2 (10:02→20:23)
[2021-01-21] MEDS: OMEPRAZOLE 20 MG CAP PO SCH ×2 (10:02→20:24)
[2021-01-21] MEDS: FERROUS SULFATE 325MG TAB PO SCH (10:03)
[2021-01-21] MEDS: APIXABAN 5 MG TAB (ELIQUIS) PO SCH ×2 (10:03→20:23)
[2021-01-21] MEDS: diltiaZEM **CD** 180 MG CAP PO SCH (10:03)
[2021-01-21] MEDS: MULTIVITAMINS/MINERALS THERAP 1 TAB PO SCH (10:04)
[2021-01-21] MEDS: CALCIUM/VITAMIN D 500 MG TAB PO SCH (10:04)
[2021-01-21] MEDS: MAGNESIUM OXIDE 400MG TAB (MAG-OX) PO SCH (10:04)
[2021-01-21] MEDS: BRIMONIDINE 0.1% OPHTH SOLN 5 ML OU SCH ×2 (10:05→20:24)
[2021-01-21 10:18] LABS: ALBUMIN 2.8 GM/DL (3.2-5.2); CREATININE FOR GFR 0.97 MG/DL (0.55-1.30); GLOMERULAR FILTRATION RATE 58.1 (>32); MAGNESIUM LEVEL 2.3 MG/DL (1.8-2.4); POTASSIUM SERUM 4.7 MEQ/L (3.5-5.1); TOTAL PROTEIN 7.1 GM/DL (6.4-8.2)
[2021-01-21] MEDS ORDERED: DIGOXIN 0.125 MG TAB PO ONE (10:30)
--- NOTE | 2021-01-21 11:11 | IPNPDOC ---
Text Note Date of Service The patient was seen on 01/21/21. NOTE Subjective: Patient stated that she feels better today. She reports multiple episodes of diarrhea overnight. Objective: GENERAL APPEARANCE: NAD HEENT: no scleral icterus, plus JVD, EOMI CARDIOVASCULAR: Irregularly irregular with heart rate around 100 LUNGS: Diminished lung sounds bilaterally ABDOMEN: soft & not tender w palpation MUSCULOSKELETAL: no cyanosis, +1 of lower extremities swelling INTEGUMENT: no generalized pallor NEUROLOGICAL: cranial nerve function from 2-12 intact, follows commands, speech not dysarthric Assessment and plan: Patient is 86 years old female with past medical history of rheumatoid arthritis, pulmonary fibrosis, atrial fibrillation on Eliquis, congestive heart failure, chronic kidney, chronic hypoxic respiratory failure on 2 L oxygen at home disease who presented to hospital yesterday with complaints of shortness of breath and cough. Interstitial lung disease exacerbation/acute on chronic hypoxemic respiratory failure/Pulmonary fibrosis with traction bronchiectasis Most likely multifactorial secondary to rheumatoid arthritis, prolonged intake of amiodarone, CHF exacerbation. Also leflunomide can be cause of interstitial pneumonitis, pulmonary fibrosis and pulmonary hypertension. Pulmonology team on board. Continue methylprednisolone 40 mg twice daily. Leflunomide on hold. Close follow-up with computer science professor in the outpatient settings her breathing markedly improved and her oxygen requirements around 2 L of oxygen currently Acute diastolic CHF I's and O's Continue diuresis with Lasix IV 40 mg daily We will continue to monitor BNP Atrial fibrillation with RVR I increased the dose of metoprolol to 50 mg every 6 hours. Continue diltiazem Heart rate improved today Continue anticoagulation with Eliquis I talked to Dr. Rosario he recommended to start digoxin IV 0.25 every 6 hours for 24 hours, and then start digoxin 0.25 p.o. daily. Appreciate/agree with garnett mechanic consult Acute on chronic renal failure Resolved Continue to monitor Hypokalemia Resolved Rheumatoid arthritis Continue methylprednisolone Leflunomide on hold GI bleed Stool was positive for occult blood Continue monitoring hemoglobin. Hemoglobin stable, no indication for blood transfusion Continue PPI. I increased the dose of omeprazole to 40 mg twice daily Patient will need follow-up with GI team in the outpatient settings Diarrhea We will check stool for C. difficile DVT prophylaxis: Patient on Eliquis VS,Fishbone, I+O VS, Fishbone, I+O Laboratory Tests 01/20/21 15:25 01/20/21 21:05 01/21/21 01:16 01/21/21 08:10 Vital Signs Date Time Temp Pulse Resp B/P (MAP) Pulse Ox O2 Delivery O2 Flow Rate FiO2 01/21/21 10:03 103 130/95 01/21/21 09:55 96.9 20 95 Nasal Cannula 2.0 I&O- Last 24 Hours up to 6 AM 01/21/21 05:59 Intake Total 1108 ml Output Total 150 ml Balance 958 ml ROZ ALSTON DO Jan 21, 2021 11:11
--- NOTE | 2021-01-21 11:50 | IPNPDOC ---
Subjective Date Seen The patient was seen on 01/21/21. Subjective Chief Complaint/HPI Feeling lousy. She had several episodes of diarrhea last night. She admits to improving in her shortness of breath. She still experiencing palpitation. She denies fever, chills, chest pain, orthopnea, PND. General: Denies: Chills Constitutional: Denies: Chills, Fever Eyes: Denies: Pain ENT: Denies: Head Aches, Sore Throat Skin: Denies: Rash Pulmonary: Reports: Dyspnea; Denies: Cough Cardiovascular: Reports: Palpitations; Denies: Chest Pain, Orthopnea, Paroxysmal Noc. Dyspnea Gastrointestinal: Reports: Diarrhea; Denies: Nausea, Abdominal Pain Neurological: Denies: Weakness Objective Physical Examination General Exam: Positive: Alert, Cooperative, Mild Distress Eye Exam: Positive: Conjunctiva & lids normal; Negative: Sclera icteric ENT Exam: Positive: Atraumatic, Mucous membr. moist/pink Neck Exam: Positive: Supple; Negative: JVD Chest Exam: Positive: Rhonchi (Bilateral) Heart Exam: Positive: Rate Normal, Irregular Rhythm; Negative: Murmurs Abdomen Exam: Positive: Normal bowel sounds, Soft; Negative: Tenderness Extremity Exam: Positive: Edema (Improved edema ); Negative: Cyanosis Skin Exam: Positive: Nl turgor and temperature; Negative: Breakdown Neuro Exam: Positive: Normal Speech, Normal Tone Psych Exam: Positive: Mental status NL, Mood NL, Memory Intact, Oriented x 3 Assessment /Plan Assessment This is a pleasant 86-year-old lady with past medical history of rheumatoid arthritis, pulmonary fibrosis, atrial fibrillation on Eliquis, congestive heart failure, chronic kidney, chronic hypoxic respiratory failure on 2 L oxygen at home disease who presented to hospital yesterday with complaints of shortness of breath and cough. 1. 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 Less likely pneumonia given the lack of clinical symptoms. 2. Decompensated right heart failure with features of group 3 pulmonary hypertension. 3. Pulmonary fibrosis with traction bronchiectasis 4. Atrial fibrillation 5. History of rheumatoid arthritis on leflunomide and prednisone 5 mg 6. Acute on chronic hypoxic respiratory failure Plan/VTE VTE Prophylaxis Ordered?: Yes Plan -She has completed 3 days of post dose steroid. She is currently on methylprednisolone 40 mg twice daily. Respiratory status has significantly improved. She is currently on 2 L oxygen nasal cannula. Part of her respiratory failure may likely due to heart failure due to diastolic dysfunction with rapid A. fib. She has significant responded to diuresis and currently she is on Lasix 40 mg daily. If she continues to improve, I will consider start cutting down the dose of her methylprednisolone. -She will very much benefit from rheumatology consultation as she will need a DMARDs or biologic when we have a plan to start tapering systemic corticosteroid. Disposition Continue hospital care. VS, I&O, 24H, Jose Rafaelbone Vital Signs/I&O Vital Signs Date Time Temp Pulse Resp B/P (MAP) Pulse Ox O2 Delivery O2 Flow Rate FiO2 01/21/21 11:13 104 01/21/21 10:03 130/95 01/21/21 09:55 96.9 20 95 Nasal Cannula 2.0 I&O- Last 24 Hours up to 6 AM 01/21/21 06:00 Intake Total 958 ml Output Total 150 ml Balance 808 ml Laboratory Data 24H LABS Laboratory Tests 2 01/20/21 12:50: Bedside Glucose (Misc Panel) 211H 01/20/21 15:25: Anion Gap 2L, Glomerular Filtration Rate 54.8, Calcium Level 9.0 01/20/21 17:50: Bedside Glucose (Misc Panel) 187H 01/20/21 20:11: Bedside Glucose (Misc Panel) 204H 01/20/21 21:05: Anion Gap 0L, Glomerular Filtration Rate 47.7, Calcium Level 8.7L 01/21/21 01:16: Anion Gap 1L, Glomerular Filtration Rate 54.2, Calcium Level 9.1 01/21/21 08:04: Bedside Glucose (Misc Panel) 149H 01/21/21 08:10: Anion Gap 1L, Glomerular Filtration Rate 58.1, Calcium Level 10.0, Immature Granulocyte % (Auto) 1.6, Neutrophils (%) (Auto) 88.6H, Lymphocytes (%) (Auto) 3.0L, Monocytes (%) (Auto) 6.5, Eosinophils (%) (Auto) 0.0, Basophils (%) (Auto) 0.3, Neutrophils # (Auto) 9.3H, Lymphocytes # (Auto) 0.3L, Monocytes # (Auto) 0.7, Eosinophils # (Auto) 0.0, Basophils # (Auto) 0.0, Nucleated Red Blood Cells % (auto) 0.0, Magnesium Level 2.3, Total Bilirubin 1.0#, Aspartate Amino Transf (AST/SGOT) 29, Alanine Aminotransferase (ALT/SGPT) 48, Alkaline Phosphatase 78, Total Protein 7.1, Albumin 2.8L, Albumin/Globulin Ratio 0.7L CBC/BMP Laboratory Tests 01/20/21 15:25 01/20/21 21:05 01/21/21 01:16 01/21/21 08:10 Microbiology Microbiology 01/18/21 Stool Occult Blood ([facility]SE[facility]INE) - Final, Complete 01/15/21 Respiratory Virus Panel (PCR) ([facility]) - Final, Complete 01/14/21 Respiratory Virus Panel (PCR) ([facility]) - Final, Complete FRANCIE RAO MD Jan 21, 2021 11:50
[2021-01-21] MEDS: FUROSEMIDE 40MG/4ML VIAL (J1940) IV SCH (20:23)
[2021-01-21] MEDS: hydrOXYzine 10 MG TAB PO SCH (20:23)
[2021-01-22] VITALS (7 sets, daily range): BP systolic 116–152; BP diastolic 69–98
[2021-01-22 06:15] LABS: BASO % 0.3 % (0.0-1.0); HEMATOCRIT 46.6 % (36.0-47.0); HEMOGLOBIN 14.8 g/dl (12.0-15.5); LYMPH # 0.2 10^3/uL (1.5-5.0); LYMPH % 2.1 % (24.0-44.0); MEAN CORPUSCULAR HEMOGLOBIN 31.8 pg (27.0-33.0); MEAN CORPUSCULAR HGB CONC 31.8 g/dl (32.0-36.5); MEAN CORPUSCULAR VOLUME 100.2 fl (80.0-96.0); MONO # 0.5 10^3/uL (0.0-0.8); MONO % 4.9 % (2.0-8.0); NEUTROPHILS # 9.1 10^3/uL (1.5-8.5); NEUTROPHILS % 91.6 % (36.0-66.0); PLATELET COUNT, AUTOMATED 200 10^3/uL (150-450); RED BLOOD COUNT 4.65 10^6/uL (4.00-5.40); WHITE BLOOD COUNT 9.9 10^3/uL (4.0-10.0)
[2021-01-22 06:59] LABS: ALBUMIN 2.7 GM/DL (3.2-5.2); ALT/SGPT 43 U/L (12-78); BILIRUBIN,TOTAL 1.1 MG/DL (0.2-1.0); BLOOD UREA NITROGEN 47 MG/DL (7-18); CALCIUM LEVEL 9.9 MG/DL (8.8-10.2); CARBON DIOXIDE LEVEL 52 MEQ/L (21-32); CHLORIDE LEVEL 89 MEQ/L (98-107); CREATININE FOR GFR 1.03 MG/DL (0.55-1.30); GLOMERULAR FILTRATION RATE 54.2 (>32); GLUCOSE, FASTING 158 MG/DL (70-100); MAGNESIUM LEVEL 2.2 MG/DL (1.8-2.4); POTASSIUM SERUM 4.7 MEQ/L (3.5-5.1); SODIUM LEVEL 139 MEQ/L (136-145); TOTAL PROTEIN 6.9 GM/DL (6.4-8.2)
[2021-01-22] MEDS: HumaLOG INSULIN (NovoLOG) PER UNIT SC SCH ×4 (09:10→21:12)
[2021-01-22] MEDS: methylPREDNISolone 40MG 1ML VIAL IV SCH ×2 (09:39→21:12)
[2021-01-22] MEDS: FUROSEMIDE 40MG/4ML VIAL (J1940) IV SCH ×2 (09:40→21:13)
[2021-01-22] MEDS: POTASSIUM CHLORIDE 10MEQ SR TABLET PO SCH ×2 (09:41→21:13)
[2021-01-22] MEDS: MULTIVITAMINS/MINERALS THERAP 1 TAB PO SCH (09:41)
[2021-01-22] MEDS: CALCIUM/VITAMIN D 500 MG TAB PO SCH (09:43)
[2021-01-22] MEDS: METOPROLOL TART 50 MG TAB PO SCH ×2 (09:43→21:13)
[2021-01-22] MEDS: diltiaZEM **CD** 180 MG CAP PO SCH (09:43)
[2021-01-22] MEDS: APIXABAN 5 MG TAB (ELIQUIS) PO SCH ×2 (09:43→21:13)
[2021-01-22] MEDS: FERROUS SULFATE 325MG TAB PO SCH (09:44)
[2021-01-22] MEDS: DIGOXIN 0.125 MG TAB PO SCH (09:45)
[2021-01-22] MEDS: MAGNESIUM OXIDE 400MG TAB (MAG-OX) PO SCH (09:45)
[2021-01-22] MEDS: BRIMONIDINE 0.1% OPHTH SOLN 5 ML OU SCH ×2 (09:46→21:14)
[2021-01-22] MEDS: OMEPRAZOLE 20 MG CAP PO SCH ×2 (10:01→21:12)
--- NOTE | 2021-01-22 11:44 | IPNPDOC ---
Subjective Date Seen The patient was seen on 01/22/21. Subjective Chief Complaint/HPI Patient reported having a better night last night compared to several nights ago. She denies of fever, chills, chest pain, orthopnea. General: Denies: Chills, Fatigue Constitutional: Denies: Chills, Fever Skin: Denies: Rash Pulmonary: Reports: Dyspnea; Denies: Cough Cardiovascular: Denies: Chest Pain, Palpitations, Orthopnea, Paroxysmal Noc. Dyspnea Gastrointestinal: Denies: Nausea, Diarrhea Neurological: Denies: Weakness Objective Physical Examination General Exam: Positive: Alert, Cooperative Eye Exam: Positive: Conjunctiva & lids normal; Negative: Sclera icteric ENT Exam: Positive: Atraumatic, Mucous membr. moist/pink Neck Exam: Positive: Supple; Negative: JVD Chest Exam: Positive: Clear to auscultation Heart Exam: Positive: Rate Normal, Irregular Rhythm; Negative: Murmurs Abdomen Exam: Positive: Normal bowel sounds, Soft; Negative: Tenderness Extremity Exam: Negative: Cyanosis Skin Exam: Positive: Nl turgor and temperature; Negative: Breakdown Neuro Exam: Positive: Normal Speech, Normal Tone Psych Exam: Positive: Mental status NL, Mood NL, Memory Intact, Oriented x 3 Assessment /Plan Assessment This is a pleasant 86-year-old lady with past medical history of rheumatoid arthritis, pulmonary fibrosis, atrial fibrillation on Eliquis, congestive heart failure, chronic kidney, chronic hypoxic respiratory failure on 2 L oxygen at home disease who presented to hospital yesterday with complaints of shortness of breath and cough. 1. 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 Less likely pneumonia given the lack of clinical symptoms. 2. Decompensated right heart failure with features of group 3 pulmonary hypertension. 3. Pulmonary fibrosis with traction bronchiectasis 4. Atrial fibrillation 5. History of rheumatoid arthritis on leflunomide and prednisone 5 mg 6. Acute on chronic hypoxic respiratory failure Plan/VTE VTE Prophylaxis Ordered?: Yes Plan -Oxygen requirement is significantly improving. She has completed 3 days of pulse dose systemic corticosteroid. She is currently on methylprednisone 40 mg twice daily. Respiratory status is significantly improved and she is currently on 2 L oxygen through nasal cannula. Recommend to extremely slowly taper current dose of steroid over the course of 4 to 6 weeks. She should be started on PCP prophylaxis with Bactrim single strength daily or Bactrim double strength every other day. She needs to be referred to rheumatology immediately to consider starting DMARDs or biologic for her rheumatoid arthritis with plan to taper systemic corticosteroid. DC planning. Disposition Continue hospital care. VS, I&O, 24H, Fishbone Vital Signs/I&O Vital Signs Date Time Temp Pulse Resp B/P (MAP) Pulse Ox O2 Delivery O2 Flow Rate FiO2 01/22/21 09:45 76 01/22/21 09:43 152/98 01/22/21 08:00 2.0 01/22/21 04:00 96.4 17 95 Nasal Cannula I&O- Last 24 Hours up to 6 AM 01/22/21 06:00 Intake Total 1180 ml Output Total 325 ml Balance 855 ml Laboratory Data 24H LABS Laboratory Tests 2 01/21/21 12:01: Bedside Glucose (Misc Panel) 283H 01/21/21 16:55: Bedside Glucose (Misc Panel) 111H 01/21/21 20:17: Bedside Glucose (Misc Panel) 234H 01/22/21 05:55: Immature Granulocyte % (Auto) 1.1, Neutrophils (%) (Auto) 91.6H, Lymphocytes (%) (Auto) 2.1L, Monocytes (%) (Auto) 4.9, Eosinophils (%) (Auto) 0.0, Basophils (%) (Auto) 0.3, Neutrophils # (Auto) 9.1H, Lymphocytes # (Auto) 0.2L, Monocytes # (Auto) 0.5, Eosinophils # (Auto) 0.0, Basophils # (Auto) 0.0, Nucleated Red Blood Cells % (auto) 0.2H, Anion Gap , Glomerular Filtration Rate 54.2, Calcium Level 9.9, Magnesium Level 2.2, Total Bilirubin 1.1H, Aspartate Amino Transf (AST/SGOT) 27, Alanine Aminotransferase (ALT/SGPT) 43, Alkaline Phosphatase 75, Total Protein 6.9, Albumin 2.7L, Albumin/Globulin Ratio 0.6L 01/22/21 11:15: Bedside Glucose (Misc Panel) 352H CBC/BMP Laboratory Tests 01/22/21 05:55 Microbiology Microbiology 01/18/21 Stool Occult Blood (JOSEPHINE) - Final, Complete 01/15/21 Respiratory Virus Panel (PCR) (JOSEPHINE) - Final, Complete 01/14/21 Respiratory Virus Panel (PCR) ([facility]) - Final, Complete FRANCIE RAO MD Jan 22, 2021 11:44
[2021-01-22] MEDS ORDERED: BACTRIM 160MG/800MG DS TAB PO SCH (12:00)
--- NOTE | 2021-01-22 12:02 | IPNPDOC ---
Text Note Date of Service The patient was seen on 01/22/21. NOTE Subjective: No any acute events overnight. Heart rate under control, patient denied palpitations. Objective: GENERAL APPEARANCE: NAD HEENT: no scleral icterus, plus JVD, EOMI CARDIOVASCULAR: Irregularly irregular with heart rate around 100 LUNGS: Diminished lung sounds bilaterally ABDOMEN: soft & not tender w palpation MUSCULOSKELETAL: no cyanosis, +1 of lower extremities swelling INTEGUMENT: no generalized pallor NEUROLOGICAL: cranial nerve function from 2-12 intact, follows commands, speech not dysarthric Assessment and plan: Patient is 86 years old female with past medical history of rheumatoid arthritis, pulmonary fibrosis, atrial fibrillation on Eliquis, congestive heart failure, chronic kidney, chronic hypoxic respiratory failure on 2 L oxygen at home disease who presented to hospital yesterday with complaints of shortness of breath and cough. Interstitial lung disease exacerbation/acute on chronic hypoxemic respiratory failure/Pulmonary fibrosis with traction bronchiectasis Most likely multifactorial secondary to rheumatoid arthritis, prolonged intake of amiodarone, CHF exacerbation. Also leflunomide can be cause of interstitial pneumonitis, pulmonary fibrosis and pulmonary hypertension. Pulmonology team on board. Continue methylprednisolone 40 mg twice daily. Leflunomide on hold. I discussed the case with Dr. Damian, he recommended long- term steroid taper and PCP prophylaxis with Bactrim Close follow-up with manager global communications in the outpatient settings her breathing markedly improved and her oxygen requirements around 2 L of oxygen currently which is her baseline Acute diastolic CHF I's and O's Continue diuresis with Lasix IV 40 mg twice daily Atrial fibrillation with RVR Heart rate under control. Continue diltiazem and metoprolol Continue anticoagulation with Eliquis Continue digoxin 0.25 p.o. daily. Acute on chronic renal failure Resolved Continue to monitor Hypokalemia Resolved Rheumatoid arthritis Continue methylprednisolone Leflunomide on hold GI bleed Stool was positive for occult blood Continue monitoring hemoglobin. Hemoglobin stable, no indication for blood transfusion Continue PPI. I increased the dose of omeprazole to 40 mg twice daily Patient will need follow-up with GI team in the outpatient settings Diarrhea Resolved Deconditioning PT OT and recommended rehab after discharge ARU screen placed DVT prophylaxis: Patient on Eliquis VS,Fishbone, I+O VS, Fishbone, I+O Laboratory Tests 01/22/21 05:55 Vital Signs Date Time Temp Pulse Resp B/P (MAP) Pulse Ox O2 Delivery O2 Flow Rate FiO2 01/22/21 09:45 76 01/22/21 09:43 152/98 01/22/21 08:00 2.0 01/22/21 04:00 96.4 17 95 Nasal Cannula I&O- Last 24 Hours up to 6 AM 01/22/21 06:00 Intake Total 1180 ml Output Total 325 ml Balance 855 ml ROZ ALSTON DO Jan 22, 2021 12:02
[2021-01-22] MEDS: hydrOXYzine 10 MG TAB PO SCH (21:13)
[2021-01-22] MEDS: LATANOPROST 0.005% OPHTH SOLN 2.5 ML OU SCH (21:14)
[2021-01-23] VITALS (15 sets, daily range): BP systolic 118–150; BP diastolic 59–88; O2SAT 88–96
[2021-01-23 08:38] LABS: BASO % 0.2 % (0.0-1.0); HEMATOCRIT 50.4 % (36.0-47.0); HEMOGLOBIN 15.7 g/dl (12.0-15.5); LYMPH # 0.4 10^3/uL (1.5-5.0); LYMPH % 2.9 % (24.0-44.0); MEAN CORPUSCULAR HEMOGLOBIN 31.3 pg (27.0-33.0); MEAN CORPUSCULAR HGB CONC 31.2 g/dl (32.0-36.5); MEAN CORPUSCULAR VOLUME 100.4 fl (80.0-96.0); MONO # 0.7 10^3/uL (0.0-0.8); NEUTROPHILS # 11.7 10^3/uL (1.5-8.5); PLATELET COUNT, AUTOMATED 231 10^3/uL (150-450); RED BLOOD COUNT 5.02 10^6/uL (4.00-5.40); WHITE BLOOD COUNT 12.9 10^3/uL (4.0-10.0)
[2021-01-23] MEDS: methylPREDNISolone 40MG 1ML VIAL IV SCH ×2 (08:58→21:24)
[2021-01-23] MEDS: HumaLOG INSULIN (NovoLOG) PER UNIT SC SCH ×4 (08:59→21:00)
[2021-01-23] MEDS: MAGNESIUM OXIDE 400MG TAB (MAG-OX) PO SCH (09:00)
[2021-01-23] MEDS: METOPROLOL TART 50 MG TAB PO SCH ×2 (09:00→21:26)
[2021-01-23] MEDS: OMEPRAZOLE 20 MG CAP PO SCH ×2 (09:00→21:25)
[2021-01-23] MEDS: diltiaZEM **CD** 180 MG CAP PO SCH (09:00)
[2021-01-23] MEDS: APIXABAN 5 MG TAB (ELIQUIS) PO SCH ×2 (09:00→21:26)
[2021-01-23] MEDS: MULTIVITAMINS/MINERALS THERAP 1 TAB PO SCH (09:00)
[2021-01-23] MEDS: DIGOXIN 0.125 MG TAB PO SCH (09:01)
[2021-01-23] MEDS: POTASSIUM CHLORIDE 10MEQ SR TABLET PO SCH ×2 (09:01→21:25)
[2021-01-23] MEDS: FERROUS SULFATE 325MG TAB PO SCH (09:01)
[2021-01-23] MEDS: FUROSEMIDE 40MG/4ML VIAL (J1940) IV SCH ×2 (09:01→21:24)
[2021-01-23] MEDS: CALCIUM/VITAMIN D 500 MG TAB PO SCH (09:01)
[2021-01-23] MEDS: BRIMONIDINE 0.1% OPHTH SOLN 5 ML OU SCH ×2 (09:02→21:28)
[2021-01-23 09:13] LABS: ALBUMIN 2.9 GM/DL (3.2-5.2); BILIRUBIN,TOTAL 1.1 MG/DL (0.2-1.0); CALCIUM LEVEL 10.4 MG/DL (8.8-10.2); CREATININE FOR GFR 1.51 MG/DL (0.55-1.30); GLOMERULAR FILTRATION RATE 34.9 (>32); MAGNESIUM LEVEL 2.4 MG/DL (1.8-2.4); POTASSIUM SERUM 4.6 MEQ/L (3.5-5.1); TOTAL PROTEIN 7.2 GM/DL (6.4-8.2)
--- NOTE | 2021-01-23 14:01 | IPNPDOC ---
Text Note Date of Service The patient was seen on 01/23/21. NOTE Subjective: No any acute events overnight. Patient stated that she feels better today Objective: GENERAL APPEARANCE: NAD HEENT: no scleral icterus, plus JVD, EOMI CARDIOVASCULAR: Irregularly irregular with heart rate around 90 LUNGS: Diminished lung sounds bilaterally ABDOMEN: soft & not tender w palpation MUSCULOSKELETAL: no cyanosis, +1 of lower extremities swelling INTEGUMENT: no generalized pallor NEUROLOGICAL: cranial nerve function from 2-12 intact, follows commands, speech not dysarthric Assessment and plan: Patient is 86 years old female with past medical history of rheumatoid arthritis, pulmonary fibrosis, atrial fibrillation on Eliquis, congestive heart failure, chronic kidney, chronic hypoxic respiratory failure on 2 L oxygen at home disease who presented to hospital yesterday with complaints of shortness of breath and cough. Interstitial lung disease exacerbation/acute on chronic hypoxemic respiratory failure/Pulmonary fibrosis with traction bronchiectasis Most likely multifactorial secondary to rheumatoid arthritis, prolonged intake of amiodarone, CHF exacerbation. Also leflunomide can be cause of interstitial pneumonitis, pulmonary fibrosis and pulmonary hypertension. Pulmonology team on board. Continue methylprednisolone 40 mg twice daily. Leflunomide on hold. I discussed the case with Dr. Damian, he recommended long-te rm steroid taper and PCP prophylaxis with Bactrim Close follow-up with printing press operator apprentice in the outpatient settings her breathing markedly improved and her oxygen requirements around 2 L of oxygen currently which is her baseline Acute diastolic CHF I's and O's Continue diuresis with Lasix IV 40 mg twice daily Atrial fibrillation with RVR Heart rate under control. Continue diltiazem and metoprolol Continue anticoagulation with Eliquis Continue digoxin 0.25 p.o. daily. Acute on chronic renal failure Resolved Continue to monitor Hypokalemia Resolved Rheumatoid arthritis Continue methylprednisolone Leflunomide on hold GI bleed Stool was positive for occult blood Continue monitoring hemoglobin. Hemoglobin stable, no indication for blood transfusion Continue PPI. I increased the dose of omeprazole to 40 mg twice daily Patient will need follow-up with GI team in the outpatient settings Diarrhea Resolved Deconditioning PT OT and recommended rehab after discharge ARU screen placed DVT prophylaxis: Patient on Eliquis VS,Fishbone, I+O VS, Fishbone, I+O Laboratory Tests 01/23/21 08:00 Vital Signs Date Time Temp Pulse Resp B/P (MAP) Pulse Ox O2 Delivery O2 Flow Rate FiO2 01/23/21 13:00 91 Nasal Cannula 2.0 01/23/21 12:00 97.5 85 17 134/77 (96) I&O- Last 24 Hours up to 6 AM 01/23/21 06:00 Intake Total 1686 ml Output Total 300 ml Balance 1386 ml ROZ ALSTON DO Jan 23, 2021 14:01
[2021-01-23] MEDS: hydrOXYzine 10 MG TAB PO SCH (21:24)
[2021-01-23] MEDS: LATANOPROST 0.005% OPHTH SOLN 2.5 ML OU SCH (21:29)
[2021-01-23] MEDS: BACTRIM 80MG/400MG TAB PO SCH (21:50)
[2021-01-24] VITALS: BP 133/91
[2021-01-24 03:46] VITALS: BP 134/77
[2021-01-24 05:22] LABS: BASO % 0.2 % (0.0-1.0); HEMATOCRIT 45.7 % (36.0-47.0); HEMOGLOBIN 14.6 g/dl (12.0-15.5); LYMPH # 0.3 10^3/uL (1.5-5.0); MEAN CORPUSCULAR HEMOGLOBIN 31.7 pg (27.0-33.0); MEAN CORPUSCULAR HGB CONC 31.9 g/dl (32.0-36.5); MEAN CORPUSCULAR VOLUME 99.1 fl (80.0-96.0); MONO # 0.5 10^3/uL (0.0-0.8); MONO % 4.3 % (2.0-8.0); NEUTROPHILS # 11.4 10^3/uL (1.5-8.5); NEUTROPHILS % 92.4 % (36.0-66.0); PLATELET COUNT, AUTOMATED 221 10^3/uL (150-450); RED BLOOD COUNT 4.61 10^6/uL (4.00-5.40); WHITE BLOOD COUNT 12.3 10^3/uL (4.0-10.0)
[2021-01-24 05:43] LABS: ALBUMIN 2.6 GM/DL (3.2-5.2); BILIRUBIN,TOTAL 0.8 MG/DL (0.2-1.0); CALCIUM LEVEL 9.3 MG/DL (8.8-10.2); CREATININE FOR GFR 1.49 MG/DL (0.55-1.30); GLOMERULAR FILTRATION RATE 35.4 (>32); MAGNESIUM LEVEL 2.4 MG/DL (1.8-2.4); TOTAL PROTEIN 6.2 GM/DL (6.4-8.2)
[2021-01-24] MEDS: HumaLOG INSULIN (NovoLOG) PER UNIT SC SCH ×2 (07:30→12:26)
[2021-01-24 08:00] VITALS: BP 147/90; O2SAT 90
[2021-01-24] MEDS: BACTRIM 80MG/400MG TAB PO SCH (08:59)
[2021-01-24] MEDS: methylPREDNISolone 40MG 1ML VIAL IV SCH (08:59)
[2021-01-24 09:01] VITALS: BP 142/90
[2021-01-24] MEDS: diltiaZEM **CD** 180 MG CAP PO SCH (09:01)
[2021-01-24] MEDS: OMEPRAZOLE 20 MG CAP PO SCH (09:01)
[2021-01-24] MEDS: METOPROLOL TART 50 MG TAB PO SCH (09:01)
[2021-01-24] MEDS: DIGOXIN 0.125 MG TAB PO SCH (09:02)
[2021-01-24] MEDS: FERROUS SULFATE 325MG TAB PO SCH (09:02)
[2021-01-24] MEDS: APIXABAN 5 MG TAB (ELIQUIS) PO SCH (09:02)
[2021-01-24] MEDS: CALCIUM/VITAMIN D 500 MG TAB PO SCH (09:02)
[2021-01-24] MEDS: FUROSEMIDE 40MG/4ML VIAL (J1940) IV SCH (09:02)
[2021-01-24] MEDS: MULTIVITAMINS/MINERALS THERAP 1 TAB PO SCH (09:03)
[2021-01-24] MEDS: MAGNESIUM OXIDE 400MG TAB (MAG-OX) PO SCH (09:03)
[2021-01-24] MEDS: BRIMONIDINE 0.1% OPHTH SOLN 5 ML OU SCH (09:03)
[2021-01-24 10:00] VITALS: O2SAT 96
--- NOTE | 2021-01-24 10:57 | IPNPDOC ---
Subjective Date Seen The patient was seen on 01/24/21. Subjective Chief Complaint/HPI Patient is feeling better for the first time today. She is able to sleep all throughout the night without experiencing any fever, chills, shortness of breath, diarrhea, nausea. Constitutional: Denies: Chills, Fever Eyes: Denies: Pain ENT: Denies: Head Aches Skin: Denies: Rash Pulmonary: Denies: Dyspnea, Cough Cardiovascular: Denies: Chest Pain, Palpitations, Orthopnea, Paroxysmal Noc. Dyspnea Gastrointestinal: Denies: Nausea, Abdominal Pain, Diarrhea Neurological: Denies: Weakness, Numbness Objective Physical Examination General Exam: Positive: Alert, Cooperative Eye Exam: Positive: Conjunctiva & lids normal; Negative: Sclera icteric ENT Exam: Positive: Atraumatic, Mucous membr. moist/pink Neck Exam: Positive: Supple; Negative: JVD Chest Exam: Positive: Clear to auscultation Heart Exam: Positive: Rate Normal; Negative: Murmurs Abdomen Exam: Positive: Normal bowel sounds, Soft; Negative: Tenderness Extremity Exam: Negative: Cyanosis Skin Exam: Positive: Nl turgor and temperature; Negative: Breakdown Neuro Exam: Positive: Normal Speech, Normal Tone Psych Exam: Positive: Mental status NL, Mood NL, Memory Intact, Oriented x 3 Assessment /Plan Assessment This is a pleasant 86-year-old lady with past medical history of rheumatoid arthritis, pulmonary fibrosis, atrial fibrillation on Eliquis, congestive heart failure, chronic kidney, chronic hypoxic respiratory failure on 2 L oxygen at home disease who presented to hospital yesterday with complaints of shortness of breath and cough. 1. 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 Less likely pneumonia given the lack of clinical symptoms. 2. Decompensated right heart failure with features of group 3 pulmonary hype rtension. 3. Pulmonary fibrosis with traction bronchiectasis 4. Atrial fibrillation 5. History of rheumatoid arthritis on leflunomide and prednisone 5 mg 6. Acute on chronic hypoxic respiratory failure Plan/VTE VTE Prophylaxis Ordered?: Yes Plan -Systemic corticosteroid/prednisone to be taper down to 5 mg (her baseline for RA) over the course of 4 to 6 weeks. PCP prophylaxis with Bactrim single strength daily until prednisone is less than 20 mg. -Continue to hold leflunomide for rheumatoid arthritis. She should be referred to see a writing tutor soon as she is discharged from the hospital. -DC planning. Disposition DC planning. VS, I&O, 24H, Fishbone Vital Signs/I&O Vital Signs Date Time Temp Pulse Resp B/P (MAP) Pulse Ox O2 Delivery O2 Flow Rate FiO2 01/24/21 10:00 96 Nasal Cannula 2.0 01/24/21 09:02 92 01/24/21 09:01 147/90 01/24/21 08:00 97.3 20 I&O- Last 24 Hours up to 6 AM 01/24/21 06:00 Intake Total 1040 ml Output Total 600 ml Balance 440 ml Laboratory Data 24H LABS Laboratory Tests 2 01/23/21 11:35: Bedside Glucose (Misc Panel) 305H 01/23/21 16:39: Bedside Glucose (Misc Panel) 92 01/23/21 20:36: Bedside Glucose (Misc Panel) 234H 01/24/21 04:44: Immature Granulocyte % (Auto) 1.1, Neutrophils (%) (Auto) 92.4H, Lymphocytes (%) (Auto) 2.0L, Monocytes (%) (Auto) 4.3, Eosinophils (%) (Auto) 0.0, Basophils (%) (Auto) 0.2, Neutrophils # (Auto) 11.4H, Lymphocytes # (Auto) 0.3L, Monocytes # (Auto) 0.5, Eosinophils # (Auto) 0.0, Basophils # (Auto) 0.0, Nucleated Red Blood Cells % (auto) 0.0, Anion Gap 5L, Glomerular Filtration Rate 35.4, Calcium Level 9.3, Magnesium Level 2.4, Total Bilirubin 0.8, Aspartate Amino Transf (AST/SGOT) 25, Alanine Aminotransferase (ALT/SGPT) 43, Alkaline Phosphatase 69, Total Protein 6.2L, Albumin 2.6L, Albumin/Globulin Ratio 0.7L CBC/BMP Laboratory Tests 01/24/21 04:44 Microbiology Microbiology 01/18/21 Stool Occult Blood (JOSEPHINE) - Final, Complete 01/15/21 Respiratory Virus Panel (PCR) (JOSEPHINE) - Final, Complete 01/14/21 Respiratory Virus Panel (PCR) (JOSEPHINE) - Final, Complete FRANCIE RAO MD Jan 24, 2021 10:57
[2021-01-24] MEDS ORDERED: PRED10TA2 PO (11:24)
[2021-01-24] MEDS ORDERED: TORS10TA3 PO (11:24)
[2021-01-24] MEDS ORDERED: TOPR100T PO (11:24)
[2021-01-24] MEDS ORDERED: MAGN400T2 PO (11:24)
[2021-01-24] MEDS ORDERED: DIGO0.123 PO (11:24)
[2021-01-24] MEDS ORDERED: SULF400T14 PO (11:24)
[2021-01-24 12:00] VITALS: BP 111/65
--- NOTE | 2021-01-25 15:57 | DS.PDOC ---
Discharge Summary General Date of Admission Jan 14, 2021 at 01:02 Date of Discharge 01/25/21 Discharge Summary PROCEDURES PERFORMED DURING STAY: [None]. ADMITTING DIAGNOSES: Interstitial lung disease exacerbation/acute on chronic hypoxemic respiratory failure/Pulmonary fibrosis with traction bronchiectasis Acute diastolic CHF Atrial fibrillation with RVR Acute on chronic renal failure Hypokalemia Rheumatoid arthritis GI bleed Diarrhea Deconditioning DISCHARGE DIAGNOSES: Interstitial lung disease exacerbation/acute on chronic hypoxemic respiratory failure/Pulmonary fibrosis with traction bronchiectasis Acute diastolic CHF Atrial fibrillation with RVR Acute on chronic renal failure Hypokalemia Rheumatoid arthritis GI bleed Diarrhea Deconditioning COMPLICATIONS/CHIEF COMPLAINT: Chf, Dyspnea On Exertion. HISTORY OF PRESENT ILLNESS: Patient is 86 years old female with past medical history of rheumatoid arthritis, pulmonary fibrosis, atrial fibrillation on Eliquis, congestive heart failure, chronic kidney, chronic hypoxic respiratory failure on 2 L oxygen at home disease who presented to hospital yesterday with c omplaints of shortness of breath and cough HOSPITAL COURSE: During the hospital stay the following issue addressed Patient was diagnosed with interstitial lung disease exacerbation/acute on chronic hypoxemic respiratory failure/Pulmonary fibrosis with traction bronchiectasis Most likely multifactorial secondary to rheumatoid arthritis, prolonged intake o f amiodarone, CHF exacerbation. Also leflunomide can be cause of interstitial pneumonitis, pulmonary fibrosis and pulmonary hypertension. Pulmonology team on board. Patient received methylprednisolone 40 mg twice daily. Leflunomide on hold. I discussed the case with Dr. Damian, he recommended long-term steroid taper and PCP prophylaxis with Bactrim Close follow-up with termite renewal inspector in the outpatient settings her breathing markedly improved and her oxygen requirements around 2 L of oxygen currently which is her baseline Acute diastolic CHF I's and O's Patient received diuresis with Lasix IV 40 mg twice daily Atrial fibrillation with RVR Heart rate under control. Continue diltiazem and metoprolol Continue anticoagulation with Eliquis We started digoxin 0.25 p.o. daily. Acute on chronic renal failure Resolved Continue to monitor Hypokalemia Resolved Rheumatoid arthritis Continue methylprednisolone Leflunomide on hold GI bleed Stool was positive for occult blood Continue monitoring hemoglobin. Hemoglobin stable, no indication for blood transfusion Continue PPI. I increased the dose of omeprazole to 40 mg twice daily Patient will need follow-up with GI team in the outpatient settings Diarrhea Resolved Deconditioning PT OT and recommended rehab after discharge DISCHARGE MEDICATIONS: Please see below. ALLERGIES: Please see below. PHYSICAL EXAMINATION ON DISCHARGE: VITAL SIGNS: Please see below. GENERAL APPEARANCE: NAD HEENT: no scleral icterus, plus JVD, EOMI CARDIOVASCULAR: Irregularly irregular with heart rate around 90 LUNGS: Diminished lung sounds bilaterally ABDOMEN: soft & not tender w palpation MUSCULOSKELETAL: no cyanosis, +1 of lower extremities swelling INTEGUMENT: no generalized pallor NEUROLOGICAL: cranial nerve function from 2-12 intact, follows commands, speech not dysarthric LABORATORY DATA: Please see below. PROGNOSIS: Fair ACTIVITY: [As tolerated]. DIET: Cardiac DISPOSITION: 62 D/T Rehab Facility. ITEMS TO FOLLOWUP ON ON OUTPATIENT: Follow-up with GI team and PCP DISCHARGE CONDITION: [Stable]. TIME SPENT ON DISCHARGE: 40 minutes. Vital Signs/I&Os Vital Signs Date Time Temp Pulse Resp B/P (MAP) Pulse Ox O2 Delivery O2 Flow Rate FiO2 01/24/21 16:00 2.0 01/24/21 12:00 97.4 86 20 111/65 (80) 94 Nasal Cannula I&O- Last 24 Hours up to 6 AM 01/25/21 06:00 Intake Total 840 ml Output Total 150 ml Balance 690 ml Laboratory Data Labs 24H Laboratory Tests 2 01/24/21 16:22: Bedside Glucose (Misc Panel) 182H FSBS Laboratory Tests Test 01/24/21 16:22 Range/Units Bedside Glucose (Misc Panel) 182 83-110 MG/DL Microbiology Microbiology 01/18/21 Stool Occult Blood (JOSEPHINE) - Final, Complete 01/15/21 Respiratory Virus Panel (PCR) (JOSEPHINE) - Final, Complete Discharge Medications Scheduled Apixaban (Eliquis) 5 Mg Tablet, 5 MG PO BID, (Reported) Bimatoprost (Lumigan) 0.01% 2.5ML Drops, 1 DROP OU QHS, (Reported) Brimonidine Tartrate (Alphagan P) 0.1% 5ML Drops, 1 DROP OU BID, (Reported) Calcium Citrate/Vitamin D3 (Citracal + D Maximum Caplet) 1 Each Tablet, 1 TAB PO DAILY, (Reported) Digoxin (Digoxin) 125 Mcg Tablet, 0.125 MG PO DAILY Diltiazem Hcl (Diltiazem 24Hr ER) 360 Mg Cap.er.24h, 360 MG PO DAILY, (Reported) Ferrous Sulfate (Ferrous Sulfate) 325 Mg Tablet, 325 MG PO DAILY, (Reported) Hydroxyzine HCl (Hydroxyzine HCl) 10 Mg Tablet, 10 MG PO QHS, (Reported) Magnesium Oxide (Magnesium Oxide) 400 Mg Tablet, 400 MG PO DAILY Metoprolol Succinate (Toprol Xl) 100 Mg Tab.er.24h, 1 TAB PO DAILY Multivitamins (Thera M Plus Tablet) 1 Each Tablet, 1 TAB PO DAILY, (Reported) Omeprazole (Omeprazole) 40 Mg Capsule.dr, 40 MG PO DAILY, (Reported) Potassium Chloride (Potassium Chloride) 10 Meq Capsule.er, 10 MEQ PO DAILY, (Reported) Prednisone (Prednisone) 10 Mg Tablet, 10 MG PO TAPER Sulfamethoxazole/Trimethoprim (Sulfamethoxazole-Tmp Ss Tablet) 1 Each Tablet, 1 EA PO DAILY Torsemide (Torsemide) 10 Mg Tablet, 10 MG PO DAILY Allergies Coded Allergies: tetanus toxoid, adsorbed (Verified Allergy, Mild, POSITIVE PATCH TEST, 01/14/21) codeine (Verified Adverse Reaction, Mild, MAKES HYPER, 01/14/21) pneumococcal vaccine (Verified Adverse Reaction, Unknown, FLU SYMPTOMS, 01/14/21) ROZ ALSTON DO Jan 25, 2021 15:57
== END 2021-01-24 16:32 | DRG 196 ==
LOC: M MSPAV 01:02 → M PCU 01-20 12:31
PROVIDERS: ADMIT Internal Medicine; ATTEND Internal Medicine
DX: J84.9 Interstitial pulmonary disease, unspecified (principal); J96.21 Acute and chronic respiratory failure with hypoxia; I50.33 Acute on chronic diastolic (congestive) heart failure; K92.2 Gastrointestinal hemorrhage, unspecified; N17.9 Acute kidney failure, unspecified; M06.9 Rheumatoid arthritis, unspecified; N18.30 Chronic kidney disease, stage 3 unspecified; I71.4 Abdominal aortic aneurysm, without rupture; I48.91 Unspecified atrial fibrillation; E04.2 Nontoxic multinodular goiter; J84.10 Pulmonary fibrosis, unspecified; I27.20 Pulmonary hypertension, unspecified; F41.9 Anxiety disorder, unspecified; I50.813 Acute on chronic right heart failure; J47.9 Bronchiectasis, uncomplicated; Z99.81 Dependence on supplemental oxygen; Z79.01 Long term (current) use of anticoagulants; Z79.52 Long term (current) use of systemic steroids; Z79.899 Other long term (current) drug therapy; Z88.7 Allergy status to serum and vaccine; Z88.5 Allergy status to narcotic agent; Z87.891 Personal history of nicotine dependence; R19.7 Diarrhea, unspecified; E87.6 Hypokalemia; Z66 Do not resuscitate

== ENCOUNTER 2021-01-24 13:15 | Inpatient (IN) | payer MEDICARE ==
[~2021-01-24] VITALS: Ht 152.4 cm; Wt 57.2 kg
[~2021-01-24 13:15] MED LIST: BIMA01SOL OU; BRIM1OPD OU; CITRTAB16 PO; DIGO0.123 PO; DILT1CAP46 PO; ELIQ5TAB PO; FERR1TAB8 PO; FURO40TA2 PO; HYDR-643 PO; LEFL1TAB4 PO; MAGN400T2 PO; METO1TAB7 PO; OMEP-221 PO; POTA10CA32 PO; PRED10TA2 PO; PRED5TA PO; SULF400T14 PO; TOPR100T PO; TORS10TA3 PO; VITMTA PO
[2021-01-24] MEDS ORDERED: ACETAMINOPHEN TAB 650MG DOSE (2X325MG) PO PRN (14:50)
[2021-01-24] MEDS ORDERED: DEXTROSE 50% 50 ML SYRINGE IV PRN (14:50)
[2021-01-24] MEDS ORDERED: MIRALAX *UNIT DOSE* 17GM PACKET PO PRN (14:50)
[2021-01-24] MEDS ORDERED: GLUCOSE 4GM CHEW TABLET PO PRN (14:50)
[2021-01-24] MEDS ORDERED: GLUCAGON INJ 1MG VIAL SC PRN (14:50)
--- NOTE | 2021-01-24 15:18 | HPEPDOC ---
Power Shovel Operator Note DATE OF ADMISSION: 01-24-21 DATE OF SERVICE: 01-25-21 TIME OF ADMISSION: Please refer to physician's admission order. 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 She was treated with antibiotics, IV diuretics, and IV steroids. She developed Afib with RVR and was started on digoxin, and metoprolol was added to her home regimen of Cardizem. She also was found to have a positive occult blood test and was started on PPI with no need for blood transfusion and instructed to follow-up with GI as outpatient. Pulmonology followed patient closely and suggested long steroid taper and to start prophylactic Bactrim for PCP prophylaxis. Her breathing improved, she however was found to have significant weakness and difficulties with mobility and ADls and deemed medically appropriate for admission to ARU. REVIEW OF SYSTEMS: The following is a completed review of systems and has been reviewed. Review of systems otherwise unremarkable. PAIN: Patient self reports no pain EYES: No recent vision changes EARS, NOSE, & THROAT: No throat pain, or dysphagia, or rhinorrhea CARDIOVASCULAR: Denies chest pain or palpitations PULMONARY: + shortness of breath with exertion GASTROINTESTINAL: Denies constipation/diarrhea GENITOURINARY: denies dysuria MUSCULOSKELETAL: +generalized weakness NEUROLOGICAL:denies HEMATOLOGICAL: . SKIN: . PSYCHIATRIC: [Unremarkable]. All other review of systems found to be negative. PAST MEDICAL HISTORY: as per HPI PAST SURGICAL HISTORY: Appendectomy, left oophorectomy, carpa tunnel repair, bladder suspension, left toe surgery ALLERGIES: Please see below. MEDICATIONS: Please see below. FAMILY HISTORY: COPD and DM SOCIAL HISTORY: Former smoker, no etoh/illicit drugs DIET:low sodium PHYSICAL EXAMINATION: VITAL SIGNS: Please see below. GENERAL: Pleasant and cooperative. No acute distress. HEENT: PERRL. Extraocular movements intact. Clear conjunctiva CARDIOVASCULAR: Irregular rate and rhythm. No murmurs, rubs, or gallops LUNGS: Clear to auscultation bilaterally. No wheezes. No rhonchi ABDOMEN: Soft, nontender, nondistended. Positive bowel sounds. Normal active bowel sounds NEUROLOGICAL: Alert and oriented times three. Cranial nerves II through XII grossly intact. Sensation diminished to light touch in stocking pattern EXTREMITIES: 5-\5 strength bilateral upper extremities. 5-\5 strength right lower extremity. 5-/5 strength in left lower extremity. +bilat LE edema LABORATORY DATA: Please see below. IMAGING:[Imaging documentation personally reviewed by record]. FUNCTIONAL STATUS: Premorbid: Mod-Independent with all activities of daily life as well as mobility On Admission: Min assist for bed mobility, functional transfers, ambulation, dressing, toileting GOALS: Mod-I for bed mobility, functional transfers, ambulation, dressing, toileting, bathing ASSESSMENT:86-year-old F with past medical history of Afib, RA on chronic prednisone who presents status post respiratory failure due to interstitial lung disease exacerbation with CHF and worsening weakness PLAN: 1. 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 Cardiac- hx of AFib cont eliquis and Cardizem, recent RVR started on digoxin and Toprol- f/u cardiology on dc -chronic CHF with recent exacerbation, con torsemide, daily weights, fluid restrict -medicine consulted to assist in overall management 3. Resp- cont daily prednisone for interstitial lung disease with recent exacerbation vs pneumonitis, on prophylactic bactrim as well -cont supplemental 02 (on 2L at home)and will add bacid given chronic antibiotic use -combivent -f/u pulm on d/c 4. Renal- CKD with recent FLORECITA, will consider renal consult if needed 5. Rheum- hx of RA on daily prednisone f/u rheum outpatient, holding off on restarting leflunomide as can cause interstitial disease 6. GI- +FOBT, will monitor for drop in Hgb, cont Prilosec 40mg BID while on steroids -f/u GI as outpatient 7. DVT ppx- on eliquis 8. Pain- tylenol prn 9. Dispo- TBD POST ADMISSION PHYSICIAN EVALUATION: Medical and functional status: Description of medical status, medical assessment: As above. Rehabilitation diagnosis and current and prior cold morbid medical conditions as above. Risk of complications and plans to mitigate them as above. Description of functional status current status is as above. Prior status as above. Status compared to preadmission: There are no clinically significant differences between the patient's current status and the information described on the preadmission screening document. Treatment plan anticipated: Treatment plan is as described above. Required disciplines including physical therapy, occupational therapy, others as noted above Intensity of services: 3 hours a day, 6 days a week. Special considerations: There are no specific special or safety considerations that would likely preclude immediate implementation of an intensive rehabilitation program or subsequently influence the plan of care ATTESTATION: Considering all the information above, it is my best judgment that this patient requires intensive rehabilitation therapy as described above and an inpatient hospital environment due to the complexity of nursing, medical, and rehabilitation needs required by the patient. Furthermore, this patient can reasonably be expected to participate in an benefit from an inpatient rehabilitation stay with an interdisciplinary team approach to the delivery of rehabilitation care under the direction and supervision of rehabilitation physician. PROGNOSIS: good ESTIMATED LENGTH OF STAY:18-21 days. PROJECTED DISCHARGE DESTINATION: Home with family support and any durable medical equipment required to increase functional safety and mobility. TIME SPENT COUNSELING AND COORDINATING INITIAL CARE: Greater than 70 minutes. Vital Signs Vital Signs Date Time Temp Pulse Resp B/P (MAP) Pulse Ox O2 Delivery O2 Flow Rate FiO2 01/24/21 16:40 98.1 66 21 135/80 (98) 93 Nasal Cannula 2.0 Home Medications Scheduled Apixaban (Eliquis) 5 Mg Tablet, 5 MG PO BID, (Reported) Bimatoprost (Lumigan) 0.01% 2.5ML Drops, 1 DROP OU QHS, (Reported) Brimonidine Tartrate (Alphagan P) 0.1% 5ML Drops, 1 DROP OU BID, (Reported) Calcium Citrate/Vitamin D3 (Citracal + D Maximum Caplet) 1 Each Tablet, 1 TAB PO DAILY, (Reported) Digoxin (Digoxin) 125 Mcg Tablet, 0.125 MG PO DAILY Diltiazem Hcl (Diltiazem 24Hr ER) 360 Mg Cap.er.24h, 360 MG PO DAILY, (Reported) Ferrous Sulfate (Ferrous Sulfate) 325 Mg Tablet, 325 MG PO DAILY, (Reported) Hydroxyzine HCl (Hydroxyzine HCl) 10 Mg Tablet, 10 MG PO QHS, (Reported) Magnesium Oxide (Magnesium Oxide) 400 Mg Tablet, 400 MG PO DAILY Metoprolol Succinate (Toprol Xl) 100 Mg Tab.er.24h, 1 TAB PO DAILY Multivitamins (Thera M Plus Tablet) 1 Each Tablet, 1 TAB PO DAILY, (Reported) Omeprazole (Omeprazole) 40 Mg Capsule.dr, 40 MG PO DAILY, (Reported) Potassium Chloride (Potassium Chloride) 10 Meq Capsule.er, 10 MEQ PO DAILY, (Reported) Prednisone (Prednisone) 10 Mg Tablet, 10 MG PO TAPER Sulfamethoxazole/Trimethoprim (Sulfamethoxazole-Tmp Ss Tablet) 1 Each Tablet, 1 EA PO DAILY Torsemide (Torsemide) 10 Mg Tablet, 10 MG PO DAILY Allergies Coded Allergies: tetanus toxoid, adsorbed (Verified Allergy, Mild, POSITIVE PATCH TEST, 01/14/21) codeine (Verified Adverse Reaction, Mild, MAKES HYPER, 01/14/21) pneumococcal vaccine (Verified Adverse Reaction, Unknown, FLU SYMPTOMS, 01/14/21) A-FIB/CHADSVASC A-FIB History Current/History of A-Fib/PAF?: Yes Current PO Anticoag Therapy: Yes VERONA EASTON MD Jan 24, 2021 15:18
[2021-01-24] MEDS: SODIUM CHLORIDE NASAL 0.65% SPRAY BTL (OCEAN) SCH ×2 (16:00→21:41)
[2021-01-24 16:40] VITALS: BP 135/80
[2021-01-24] MEDS ORDERED: HOME MED LIST COMPLETE! XX SCH (17:20)
[2021-01-24] MEDS: HumaLOG INSULIN (NovoLOG) PER UNIT SC SCH ×2 (18:14→20:59)
[2021-01-24] MEDS: LACTOBACILLUS ACIDOPHILUS CAP (BACID) PO SCH ×2 (18:14→21:40)
[2021-01-24] MEDS: REMEDY PHYTOPLEX Z-GUARD PASTE 113GM TUBE (FROM STOREROOM PRODUCT) TOP SCH ×2 (18:14→21:40)
[2021-01-24 20:00] VITALS: BP 132/80
[2021-01-24] MEDS ORDERED: FLUBLOK(EGG FREE)(QUAD)INFLUENZA VACC 0.5ML SYRINGE 18YRS & OLDER IM ONE (20:00)
[2021-01-24] MEDS: COMBIVENT RESPIMAT 100-20MCG INHALER 4GM INH SCH (20:02)
[2021-01-24] MEDS ORDERED: BRIMONIDINE 0.1% OPHTH SOLN 5 ML OU SCH (21:00)
[2021-01-24] MEDS: DOCUSATE SODIUM 100MG CAPSULE PO SCH (21:01)
[2021-01-24] MEDS: SENNA 8.6 MG TAB (SENOKOT) PO SCH (21:01)
[2021-01-24] MEDS: hydrOXYzine 10 MG TAB PO SCH (21:39)
[2021-01-24] MEDS: APIXABAN 5 MG TAB (ELIQUIS) PO SCH (21:39)
[2021-01-24] MEDS: OMEPRAZOLE 20 MG CAP PO SCH (21:40)
[2021-01-24] MEDS: BRIMONIDINE 0.1% OPHTH SOLN 5 ML OU SCH (21:40)
[2021-01-24] MEDS: LATANOPROST 0.005% OPHTH SOLN 2.5 ML OU SCH (21:40)
[2021-01-25 06:00] VITALS: BP 143/87
[2021-01-25 07:16] LABS: BASO % 0.2 % (0.0-1.0); EOS % 0.1 % (0.0-3.0); HEMATOCRIT 43.6 % (36.0-47.0); HEMOGLOBIN 13.9 g/dl (12.0-15.5); LYMPH # 0.3 10^3/uL (1.5-5.0); LYMPH % 2.5 % (24.0-44.0); MEAN CORPUSCULAR HEMOGLOBIN 31.4 pg (27.0-33.0); MEAN CORPUSCULAR HGB CONC 31.9 g/dl (32.0-36.5); MEAN CORPUSCULAR VOLUME 98.4 fl (80.0-96.0); MONO # 0.9 10^3/uL (0.0-0.8); MONO % 7.4 % (2.0-8.0); NEUTROPHILS # 10.9 10^3/uL (1.5-8.5); NEUTROPHILS % 88.7 % (36.0-66.0); PLATELET COUNT, AUTOMATED 205 10^3/uL (150-450); RED BLOOD COUNT 4.43 10^6/uL (4.00-5.40); WHITE BLOOD COUNT 12.2 10^3/uL (4.0-10.0)
[2021-01-25] MEDS: COMBIVENT RESPIMAT 100-20MCG INHALER 4GM INH SCH ×3 (07:20→21:44)
[2021-01-25 07:39] LABS: ALBUMIN 2.4 GM/DL (3.2-5.2); BILIRUBIN,TOTAL 0.7 MG/DL (0.2-1.0); CALCIUM LEVEL 9.3 MG/DL (8.8-10.2); CREATININE FOR GFR 1.31 MG/DL (0.55-1.30); GLOMERULAR FILTRATION RATE 41.1 (>32); POTASSIUM SERUM 4.8 MEQ/L (3.5-5.1)
[2021-01-25] MEDS: FERROUS SULFATE 325MG TAB PO SCH (08:08)
[2021-01-25] MEDS: CALCIUM/VITAMIN D 500 MG TAB PO SCH (08:08)
[2021-01-25] MEDS: LACTOBACILLUS ACIDOPHILUS CAP (BACID) PO SCH ×4 (08:08→21:23)
[2021-01-25] MEDS: HumaLOG INSULIN (NovoLOG) PER UNIT SC SCH ×4 (08:08→21:00)
[2021-01-25] MEDS: BACTRIM 80MG/400MG TAB PO SCH (08:08)
[2021-01-25] MEDS: MAGNESIUM OXIDE 400MG TAB (MAG-OX) PO SCH (08:09)
[2021-01-25] MEDS: diltiaZEM **CD** 180 MG CAP PO SCH (08:09)
[2021-01-25] MEDS: APIXABAN 5 MG TAB (ELIQUIS) PO SCH (08:09)
[2021-01-25] MEDS: OMEPRAZOLE 20 MG CAP PO SCH ×2 (08:10→21:23)
[2021-01-25] MEDS: predniSONE 20 MG TAB PO SCH (08:10)
[2021-01-25] MEDS: METOPROLOL SUCC (TopROL XL) 100MG *XL* TAB PO SCH (08:10)
[2021-01-25] MEDS: DIGOXIN 0.125 MG TAB PO SCH (08:10)
[2021-01-25] MEDS: DOCUSATE SODIUM 100MG CAPSULE PO SCH ×2 (08:10→21:00)
[2021-01-25] MEDS: POTASSIUM CHLORIDE 10MEQ SR TABLET PO SCH (08:10)
[2021-01-25] MEDS: REMEDY PHYTOPLEX Z-GUARD PASTE 113GM TUBE (FROM STOREROOM PRODUCT) TOP SCH ×3 (08:11→21:29)
[2021-01-25] MEDS: BRIMONIDINE 0.1% OPHTH SOLN 5 ML OU SCH ×2 (08:12→21:25)
[2021-01-25] MEDS: SODIUM CHLORIDE NASAL 0.65% SPRAY BTL (OCEAN) SCH ×3 (08:14→21:24)
[2021-01-25] MEDS: TORSEMIDE 10 MG TABLET PO SCH (10:05)
[2021-01-25 14:00] VITALS: BP 115/65
--- NOTE | 2021-01-25 16:03 | IPNPDOC ---
Text Note Date of Service The patient was seen on 01/25/21. NOTE Subjective: No new acute events overnight Objective: GENERAL APPEARANCE: NAD HEENT: no scleral icterus, plus JVD, EOMI CARDIOVASCULAR: Irregularly irregular with heart rate around 85 LUNGS: Diminished lung sounds bilaterally ABDOMEN: soft & not tender w palpation MUSCULOSKELETAL: no cyanosis, no swelling INTEGUMENT: no generalized pallor NEUROLOGICAL: cranial nerve function from 2-12 intact, follows commands, speech not dysarthric Assessment and plan: Patient is 86 years old female with past medical history of rheumatoid arthritis, pulmonary fibrosis, atrial fibrillation on Eliquis, congestive heart failure, chronic kidney, chronic hypoxic respiratory failure on 2 L oxygen at home disease who presented to hospital yesterday with complaints of shortness of breath and cough. Interstitial lung disease/pulmonary fibrosis Patient is on 2 L of oxygen currently which is her baseline Continue prednisone p.o. with taper according to pulmonology recommendation diastolic CHF Not in acute exacerbation, patient euvolemic I's and O's continue torsemide 10 mg Cardiac diet Atrial fibrillation Heart rate under control. Continue diltiazem and metoprolol Continue anticoagulation with Eliquis Continue digoxin 0.25 p.o. daily. chronic renal failure stage III Creatinine at baseline Continue to monitor Rheumatoid arthritis Patient will need follow-up with drug room clerk in the outpatient settings Leflunomide on hold Deconditioning Continue PT OT DVT prophylaxis: Patient on Eliquis VS,Fishbone, I+O VS, Fishbone, I+O Laboratory Tests 01/25/21 06:45 Vital Signs Date Time Temp Pulse Resp B/P (MAP) Pulse Ox O2 Delivery O2 Flow Rate FiO2 01/25/21 14:00 97.4 73 18 115/65 (82) 94 Nasal Cannula 2.0 I&O- Last 24 Hours up to 6 AM 01/25/21 06:00 Intake Total 980 ml Balance 980 ml ROZ ALSTON DO Jan 25, 2021 16:03
[2021-01-25] MEDS: SENNA 8.6 MG TAB (SENOKOT) PO SCH (21:00)
[2021-01-25] MEDS: hydrOXYzine 10 MG TAB PO SCH (21:23)
[2021-01-25] MEDS: APIXABAN 2.5 MG TAB (ELIQUIS) PO SCH (21:23)
[2021-01-25] MEDS: LATANOPROST 0.005% OPHTH SOLN 2.5 ML OU SCH (21:25)
[2021-01-25 22:00] VITALS: BP 114/73
[2021-01-26 06:00] VITALS: BP 117/74
[2021-01-26] MEDS: COMBIVENT RESPIMAT 100-20MCG INHALER 4GM INH SCH ×3 (07:06→19:43)
[2021-01-26] MEDS: HumaLOG INSULIN (NovoLOG) PER UNIT SC SCH ×4 (07:30→19:53)
[2021-01-26 08:02] LABS: BASO % 0.3 % (0.0-1.0); EOS % 0.2 % (0.0-3.0); HEMATOCRIT 43.9 % (36.0-47.0); LYMPH # 0.6 10^3/uL (1.5-5.0); LYMPH % 4.5 % (24.0-44.0); MEAN CORPUSCULAR HEMOGLOBIN 31.7 pg (27.0-33.0); MEAN CORPUSCULAR HGB CONC 31.9 g/dl (32.0-36.5); MEAN CORPUSCULAR VOLUME 99.3 fl (80.0-96.0); MONO # 1.1 10^3/uL (0.0-0.8); MONO % 8.1 % (2.0-8.0); NEUTROPHILS # 11.1 10^3/uL (1.5-8.5); NEUTROPHILS % 85.7 % (36.0-66.0); PLATELET COUNT, AUTOMATED 233 10^3/uL (150-450); RED BLOOD COUNT 4.42 10^6/uL (4.00-5.40)
[2021-01-26 08:07] LABS: CALCIUM LEVEL 9.1 MG/DL (8.8-10.2); CREATININE FOR GFR 1.37 MG/DL (0.55-1.30); POTASSIUM SERUM 4.6 MEQ/L (3.5-5.1)
[2021-01-26] MEDS: diltiaZEM **CD** 180 MG CAP PO SCH (08:27)
[2021-01-26] MEDS: OMEPRAZOLE 20 MG CAP PO SCH ×2 (08:27→20:15)
[2021-01-26] MEDS: DOCUSATE SODIUM 100MG CAPSULE PO SCH ×2 (08:27→20:15)
[2021-01-26] MEDS: APIXABAN 2.5 MG TAB (ELIQUIS) PO SCH ×2 (08:28→20:15)
[2021-01-26] MEDS: POTASSIUM CHLORIDE 10MEQ SR TABLET PO SCH (08:28)
[2021-01-26] MEDS: CALCIUM/VITAMIN D 500 MG TAB PO SCH (08:28)
[2021-01-26] MEDS: TORSEMIDE 10 MG TABLET PO SCH (08:28)
[2021-01-26] MEDS: FERROUS SULFATE 325MG TAB PO SCH (08:28)
[2021-01-26] MEDS: MAGNESIUM OXIDE 400MG TAB (MAG-OX) PO SCH (08:28)
[2021-01-26] MEDS: predniSONE 20 MG TAB PO SCH (08:28)
[2021-01-26] MEDS: BRIMONIDINE 0.1% OPHTH SOLN 5 ML OU SCH ×2 (08:29→20:16)
[2021-01-26] MEDS: METOPROLOL SUCC (TopROL XL) 100MG *XL* TAB PO SCH ×2 (08:29→08:34)
[2021-01-26] MEDS: LACTOBACILLUS ACIDOPHILUS CAP (BACID) PO SCH ×4 (08:29→20:15)
[2021-01-26] MEDS: SODIUM CHLORIDE NASAL 0.65% SPRAY BTL (OCEAN) SCH ×3 (08:29→20:16)
[2021-01-26] MEDS: REMEDY PHYTOPLEX Z-GUARD PASTE 113GM TUBE (FROM STOREROOM PRODUCT) TOP SCH ×3 (08:30→20:17)
[2021-01-26] MEDS: DIGOXIN 0.125 MG TAB PO SCH (08:34)
[2021-01-26] MEDS: BACTRIM 80MG/400MG TAB PO SCH (08:35)
--- NOTE | 2021-01-26 09:52 | IPNPDOC ---
PM&R Progress Note DATE OF SERVICE: Jan 26, 2021 Admissions Advisor Progress Note Subjective: Patient seen in her room stating hr feet feel more numb since [place] on more prednisone. She otherwise has no worsening shortness of breath. REVIEW OF SYSTEMS: The following is a completed review of systems and has been reviewed. Review of systems otherwise unremarkable. PAIN: Patient self reports no pain EYES: No recent vision changes EARS, NOSE, & THROAT: No throat pain, or dysphagia, or rhinorrhea CARDIOVASCULAR: Denies chest pain or palpitations PULMONARY: + shortness of breath with exertion GASTROINTESTINAL: Denies constipation/diarrhea GENITOURINARY: denies dysuria MUSCULOSKELETAL: +generalized weakness NEUROLOGICAL:denies HEMATOLOGICAL: . SKIN: . PSYCHIATRIC: Unremarkable. All other review of systems found to be negative. PHYSICAL EXAMINATION: VITAL SIGNS: Please see below. GENERAL: Pleasant and cooperative. No acute distress. HEENT: PERRL. Extraocular movements intact. Clear conjunctiva CARDIOVASCULAR: Irregular rate and rhythm. No murmurs, rubs, or gallops LUNGS: Clear to auscultation bilaterally. No wheezes. No rhonchi ABDOMEN: Soft, nontender, nondistended. Positive bowel sounds. Normal active bowel sounds NEUROLOGICAL: Alert and oriented times three. Cranial nerves II through XII grossly intact. Sensation diminished to light touch in stocking pattern EXTREMITIES: 5-\5 strength bilateral upper extremities. 5-\5 strength right lower extremity. 5-/5 strength in left lower extremity. +bilat LE edema ASSESSMENT:86-year-old F with past medical history of Afib, RA on chronic prednisone who presents status post respiratory failure due to interstitial lung disease exacerbation with CHF and worsening weakness PLAN: 1. 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 Cardiac- hx of AFib cont eliquis and Cardizem, recent RVR started on digoxin and Toprol- f/u cardiology on dc -chronic CHF with recent exacerbation, con torsemide, daily weights, fluid restrict -medicine consulted to assist in overall management 3. Resp- cont daily prednisone for interstitial lung disease (leukocytosis due to steroid use) with recent exacerbation vs pneumonitis, on prophylactic bactrim as well -cont supplemental 02 (on 2L at home)and will add bacid given chronic antibiotic use -combivent -f/u pulm on d/c 4. Renal- CKD with recent FLORECITA, will consult renal 5. Rheum- hx of RA on daily prednisone f/u rheum outpatient, holding off on restarting leflunomide as can cause interstitial disease 6. GI- +FOBT, will monitor for drop in Hgb, cont Prilosec 40mg BID while on steroids -f/u GI as outpatient 7. DVT ppx- on eliquis 8. Pain- tylenol prn 9. Dispo- TBD Allergies Coded Allergies: tetanus toxoid, adsorbed (Verified Allergy, Mild, POSITIVE PATCH TEST, 01/14/21) codeine (Verified Adverse Reaction, Mild, MAKES HYPER, 01/14/21) pneumococcal vaccine (Verified Adverse Reaction, Unknown, FLU SYMPTOMS, 01/14/21) Vital Signs Vital Signs Date Time Temp Pulse Resp B/P (MAP) Pulse Ox O2 Delivery O2 Flow Rate FiO2 01/26/21 08:34 58 01/26/21 08:30 2.0 01/26/21 08:27 120/74 01/26/21 06:00 97.4 18 95 Nasal Cannula Laboratory Data CBC/BMP Laboratory Tests 01/26/21 07:20 Labs 24H Laboratory Tests 2 01/25/21 12:01: Bedside Glucose (Misc Panel) 160H 01/25/21 17:01: Bedside Glucose (Misc Panel) 161H 01/25/21 20:35: Bedside Glucose (Misc Panel) 193H 01/26/21 05:13: Bedside Glucose (Misc Panel) 99 01/26/21 07:20: Immature Granulocyte % (Auto) 1.2, Neutrophils (%) (Auto) 85.7H, Lymphocytes (%) (Auto) 4.5L, Monocytes (%) (Auto) 8.1H, Eosinophils (%) (Auto) 0.2, Basophils (%) (Auto) 0.3, Neutrophils # (Auto) 11.1H, Lymphocytes # (Auto) 0.6L, Monocytes # (Auto) 1.1H, Eosinophils # (Auto) 0.0, Basophils # (Auto) 0.0, Nucleated Red Blood Cells % (auto) 0.0, Anion Gap 5L, Glomerular Filtration Rate 39.0, Calcium Level 9.1 Current Medications Current Medications Current Medications Medications (Trade) Dose Ordered Sig/Dayami Route PRN Reason Start Time Stop Time Status Last Admin Dose Admin Acetaminophen (Tylenol Tab) 650 mg Q4HP PRN PO fever/MILD PAIN (PS 1-4) 01/24/21 14:50 Albuterol/ Ipratropium (Combivent Respimat 100-20mcg) 1 puff RTID INH 01/24/21 20:00 01/26/21 07:06 Apixaban (Eliquis) 2.5 mg BID PO 01/25/21 21:00 01/26/21 08:28 Apixaban (Eliquis) 5 mg BID PO 01/24/21 21:00 01/25/21 10:43 DC 01/25/21 08:09 Brimonidine Tartrate (Alphagan P 0.1%) 1 drop BID OU 01/24/21 21:00 01/26/21 08:29 Brimonidine Tartrate (Alphagan P 0.1%) 1 drop QHS OU 01/24/21 21:00 01/24/21 15:10 DC Calcium/Vitamin D (Oscal D) 500 mg DAILY PO 01/25/21 09:00 01/26/21 08:28 Dextrose (Dextrose 50%) 25 ml ASDIRECTED PRN IV SEE LABEL COMMENTS 01/24/21 14:50 Digoxin (Lanoxin) 0.125 mg DAILY PO 01/25/21 09:00 01/25/21 08:10 Diltiazem HCl (Cardizem Cd) 360 mg DAILY PO 01/25/21 09:00 01/26/21 08:27 Docusate Sodium (Colace) 100 mg BID PO 01/24/21 21:00 01/26/21 08:27 Ferrous Sulfate (Ferrous Sulfate) 325 mg DAILY PO 01/25/21 09:00 01/26/21 08:28 Glucagon (Glucagon) 1 mg ASDIRECTED PRN SC SEE LABEL COMMENTS 01/24/21 14:50 Glucose (Glucose) 16 GM ASDIRECTED PRN PO SEE LABEL COMMENTS 01/24/21 14:50 Home Med (Home Med List Complete!) ASDIRECTED XX 01/24/21 17:20 01/24/21 17:45 DC Hydroxyzine HCl (Atarax) 10 mg QHS PO 01/24/21 21:00 01/25/21 21:23 Insulin Human Lispro (HumaLOG INSULIN) SEE PROTOCOL TABLE AC SC 01/24/21 17:30 01/25/21 17:20 Insulin Human Lispro (HumaLOG INSULIN) SEE PROTOCOL TABLE QHS SC 01/24/21 21:00 Lactobacillus Acidophilus (Bacid) 1 ea WMHS PO 01/24/21 18:00 01/26/21 08:29 Latanoprost (Xalatan 0.005% Op Soln) 1 drop QHS OU 01/24/21 21:00 01/25/21 21:25 Magnesium Oxide (Mag-Ox) 400 mg DAILY PO 01/25/21 09:00 01/26/21 08:28 Metoprolol Succinate (TopROL XL) 100 mg DAILY PO 01/25/21 09:00 01/26/21 08:34 Omeprazole (PriLOSEC) 40 mg BID PO 01/24/21 21:00 01/26/21 08:27 Polyethylene Glycol (Miralax) 1 pkt DAILY PRN PO CONSTIPATION 01/24/21 14:50 Potassium Chloride (Micro-K Extencaps) 10 meq DAILY PO 01/25/21 09:00 01/26/21 08:28 Prednisone (Deltasone) 40 mg DAILY PO 01/25/21 09:00 01/26/21 08:28 Senna (Senokot) 1 tab QHS PO 01/24/21 21:00 Sodium Chloride ([place] Nasal [place]) 2 spray TID NA 01/24/21 16:00 01/26/21 08:29 Torsemide (Demadex) 10 mg DAILY PO 01/25/21 09:00 01/26/21 08:28 Trimethoprim/ Sulfamethoxazole (Bactrim Ss, Septra Ss 80mg/ 400mg) 1 ea DAILY PO 01/25/21 09:00 01/26/21 08:35 VERONA EASTON MD Jan 26, 2021 09:52
[2021-01-26 14:00] VITALS: BP 102/60
[2021-01-26] MEDS: SENNA 8.6 MG TAB (SENOKOT) PO SCH (19:54)
[2021-01-26 20:00] VITALS: BP 108/64
[2021-01-26] MEDS: hydrOXYzine 10 MG TAB PO SCH (20:15)
[2021-01-26] MEDS: LATANOPROST 0.005% OPHTH SOLN 2.5 ML OU SCH (20:16)
--- NOTE | 2021-01-26 22:19 | CR ---
NEPHROLOGY CONSULTATION DATE: 01/26/2021 REQUESTING PHYSICIAN: Fannie Elias M.D. CONSULTING PHYSICIAN: Marycarmen Murguia M.D. REASON FOR CONSULTATION: [id number] kidney disease and congestive heart failure management. HISTORY OF PRESENT ILLNESS: Mrs. Carpenter is an 86-year-old female who was admitted to [facility] with shortness of breath and a cough. She was treated for decompensated heart failure and is now transferred to the acute rehab floor due to generalized weakness and deconditioning. A nephrology consultation was requested for management of her diuretics and acute kidney disease superimposed on chronic kidney disease. PAST MEDICAL AND SURGICAL HISTORY: The patient's past medical and surgical history is significant for: 1. History of rheumatoid arthritis. 2. Pulmonary fibrosis. 3. History of atrial fibrillation. 4. History of diastolic congestive heart failure. 5. History of chronic kidney disease. 6. History of chronic hypoxic respiratory failure on home oxygen. 7. History of abdominal aortic aneurysm. PAST SURGICAL HISTORY: The patient's past surgical history is significant for: 1. Appendectomy. 2. Left oophorectomy. 3. Bladder suspension surgery. 4. Carpal tunnel release. 5. Left hammer toe surgery. MEDICATIONS: Her home medications included: 1. Eliquis 5 mg twice daily. 2. Calcium with vitamin D one tablet daily. 3. Diltiazem E.R. 360 mg daily. 4. Ferrous Sulfate 325 mg daily. 5. Furosemide 40 mg daily. 6. Hydroxyzine 10 mg at bedtime. 7. Leflunomide 20 mg daily. 8. Metoprolol Succinate 50 mg daily. 9. Multivitamin one tablet daily. 10. Omeprazole 40 mg daily. 11. Potassium chloride 10 mEq daily. 12. Prednisone 5 mg daily. ALLERGIES: She has allergies to: 1. Codeine. 2. Pneumococcal vaccine. 3. Tetanus toxoid. FAMILY HISTORY: Noncontributory for this admission. PERSONAL AND SOCIAL HISTORY: The patient is . She denies any alcohol or drug use. She quit smoking in 1991. REVIEW OF SYSTEMS: Constitutional: The patient denies any fevers or chills. She is feeling very weak. She denies any headache. Ears, Nose and Throat: Unremarkable. She is using oxygen via nasal cannula and has been on home oxygen. Cardiovascular System: Significant for chronic dyspnea and leg edema. She denies any chest pain. Also significant for atrial fibrillation in addition to diastolic congestive heart failure. She has been on Digoxin and Eliquis. 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 She feels that Leflunomide probably has affected her lungs. She has been on home oxygen. GI System: Negative for vomiting or diarrhea. She denies any abdominal pain. System: Negative for dysuria or hematuria. Endocrine System: Significant for hypothyroidism. She does have a history of diabetes. Musculoskeletal System: Significant for lower extremity edema, rheumatoid arthritis and generalized weakness. Skin: Negative for rashes or ulcers. Psychosocial System: Negative for depression or anxiety. PHYSICAL EXAMINATION: GENERAL APPEARANCE: The patient is sitting in the chair at the time of my visit. VITAL SIGNS: Temperature is 97.4 degrees Fahrenheit, heart rate 60 per minute and respiratory rate 18 per minute. She is using oxygen via nasal cannula. Blood pressure 120/74 mm of mercury and oxygen saturation is 95% on 2 liters oxygen. HEENT: Head is atraumatic. NECK: Supple and JVD minimally elevated while she is sitting upright. . HEART: Irregular in rhythm. LUNGS: Bilateral basilar rales. ABDOMEN: Soft and nontender and bowel sounds are normal. EXTREMITIES: Without any cyanosis or clubbing. She does have bilateral ankle edema. NEUROLOGICAL: She is awake, alert and oriented x3. LABORATORY DATA: WBC count 13.0, hemoglobin 14.0 and hematocrit 43.9. Platelet count 233. Today's sodium level is 136, potassium 4.6, chloride 96, CO2 35, BUN 52 and creatinine 1.37, glucose 94 and calcium 9.1. PROBLEMS: 1. [id number] congestive heart failure she was admitted with decompensated congestive heart failure and her volume status has improved though she still has some peripheral edema. She is currently on Torsemide 10 mg daily and I would watch her for the next 24-48 hours and then consider making adjustments in her diuretics if needed. 2. Acute kidney injury superimposed on chronic kidney disease Her creatinine was 1.5 during this recent hospitalization, and now it is 1.37. Kidney function seems to be relatively stable. She does not have any hyperkalemia or metabolic acidosis. She is responding to diuretics and we will monitor her kidney function closely while she is being diuresed. 3. Hypertension - blood pressure seems very well controlled and at times it is somewhat soft. Probably this is related to her atrial fibrillation and recent adjustment in medications. We will monitor closely and make adjustments as needed. 4. Atrial fibrillation at present her ventricular rate is well controlled with the Digoxin and Metoprolol. She is also on Diltiazem. Thank you for involving me in the care of Mrs. Carpenter. Nephrology Service will follow her along with you.
[2021-01-27 06:00] VITALS: BP 141/80
[2021-01-27] MEDS: COMBIVENT RESPIMAT 100-20MCG INHALER 4GM INH SCH ×3 (07:07→19:46)
[2021-01-27] MEDS: HumaLOG INSULIN (NovoLOG) PER UNIT SC SCH ×4 (07:30→21:00)
[2021-01-27] MEDS: SODIUM CHLORIDE NASAL 0.65% SPRAY BTL (OCEAN) SCH ×3 (09:00→21:19)
[2021-01-27] MEDS: REMEDY PHYTOPLEX Z-GUARD PASTE 113GM TUBE (FROM STOREROOM PRODUCT) TOP SCH ×3 (09:00→21:00)
[2021-01-27] MEDS: DOCUSATE SODIUM 100MG CAPSULE PO SCH ×2 (09:00→21:00)
[2021-01-27] MEDS: OMEPRAZOLE 20 MG CAP PO SCH ×2 (09:41→21:17)
[2021-01-27] MEDS: FERROUS SULFATE 325MG TAB PO SCH (09:42)
[2021-01-27] MEDS: POTASSIUM CHLORIDE 10MEQ SR TABLET PO SCH (09:42)
[2021-01-27] MEDS: APIXABAN 2.5 MG TAB (ELIQUIS) PO SCH ×2 (09:42→21:17)
[2021-01-27] MEDS: MAGNESIUM OXIDE 400MG TAB (MAG-OX) PO SCH (09:42)
[2021-01-27] MEDS: predniSONE 20 MG TAB PO SCH (09:42)
[2021-01-27] MEDS: TORSEMIDE 10 MG TABLET PO SCH (09:42)
[2021-01-27] MEDS: CALCIUM/VITAMIN D 500 MG TAB PO SCH (09:43)
[2021-01-27] MEDS: BACTRIM 80MG/400MG TAB PO SCH (09:43)
[2021-01-27] MEDS: BRIMONIDINE 0.1% OPHTH SOLN 5 ML OU SCH ×2 (09:45→21:18)
[2021-01-27] MEDS: METOPROLOL SUCC (TopROL XL) 100MG *XL* TAB PO SCH (09:47)
[2021-01-27] MEDS: diltiaZEM **CD** 180 MG CAP PO SCH (09:48)
[2021-01-27] MEDS: DIGOXIN 0.125 MG TAB PO SCH (09:48)
[2021-01-27] MEDS: LACTOBACILLUS ACIDOPHILUS CAP (BACID) PO SCH ×4 (09:51→21:17)
[2021-01-27 14:00] VITALS: BP 106/62
[2021-01-27 20:00] VITALS: BP 141/83
[2021-01-27] MEDS: SENNA 8.6 MG TAB (SENOKOT) PO SCH (21:00)
[2021-01-27] MEDS: hydrOXYzine 10 MG TAB PO SCH (21:17)
[2021-01-27] MEDS: LATANOPROST 0.005% OPHTH SOLN 2.5 ML OU SCH (21:18)
--- NOTE | 2021-01-27 22:44 | IPN ---
PROGRESS NOTE DATE: 01/27/2021 SUBJECTIVE: Mrs. Munoz is seen this morning on her bedside. She is sitting in the chair at the time of my visit and spends most of her day in the chair. She denies any unusual dyspnea. She has been on chronic home oxygen. She denies any nausea or vomiting. She has a history of rheumatoid arthritis and has been on steroids for many years. PHYSICAL EXAMINATION: VITALS: Temperature 97 degrees Fahrenheit, heart rate 80 per minute, respiratory rate 17 per minute, blood pressure 114/62 mmHg, oxygen saturation 99% on 2 liter oxygen. HEENT: Head is atraumatic. Neck is supple and without JVD or thyroid enlargement. No oral thrush or ulcers noted. LUNGS: Sound mostly clear. HEART: Sounds are irregular in rhythm. ABDOMEN: Soft and nontender. Bowel sounds are normal. EXTREMITIES: Without any cyanosis or clubbing. Lower extremity edema 1+ bilaterally below mid calf level. She has deformities of her hands due to rheumatoid arthritis. NEURO: She is awake, alert and oriented x3. LABORATORY STUDIES: She did not have any labs done today. PROBLEMS: 1. Acute kidney injury superimposed on chronic kidney disease: Her kidney function has been stable with GFR about 40 mL per minute. We will monitor her renal function every couple of days. 2. Congestive heart failure: Volume status is slightly decompensated with minimal lower extremity edema. She is sitting in the chair most of the day and also has low albumin of 2.4. Her blood pressure is soft, so I would not recommend aggressive diuretic. At present, she is on Torsemide 10 mg daily. Will continue to monitor. If her edema does not improve, then we can consider increased dose of diuretic for a couple of days. I do not feel that she will be suitable for care home high dose diuretics. 3. Atrial fibrillation: Her heart rate is very well controlled at present and she remains on Eliquis in addition to Metoprolol and Diltiazem. She is also on Digoxin 0.125 mg daily. We will check her Digoxin level with next blood work. 4. Rheumatoid arthritis: She is currently on high dose prednisone with 40 mg and I will recommend to cut down her prednisone dose unless there is a strong indication for it. At home she takes only 5 mg daily.
[2021-01-28 06:00] VITALS: BP 132/65
[2021-01-28] MEDS: COMBIVENT RESPIMAT 100-20MCG INHALER 4GM INH SCH ×3 (07:03→20:17)
[2021-01-28] MEDS: HumaLOG INSULIN (NovoLOG) PER UNIT SC SCH ×4 (07:30→20:34)
[2021-01-28 08:10] LABS: BASO % 0.3 % (0.0-1.0); EOS % 0.3 % (0.0-3.0); HEMATOCRIT 41.1 % (36.0-47.0); HEMOGLOBIN 13.2 g/dl (12.0-15.5); LYMPH # 0.4 10^3/uL (1.5-5.0); LYMPH % 3.8 % (24.0-44.0); MEAN CORPUSCULAR HEMOGLOBIN 31.7 pg (27.0-33.0); MEAN CORPUSCULAR HGB CONC 32.1 g/dl (32.0-36.5); MEAN CORPUSCULAR VOLUME 98.6 fl (80.0-96.0); MONO # 0.9 10^3/uL (0.0-0.8); MONO % 7.5 % (2.0-8.0); NEUTROPHILS # 10.1 10^3/uL (1.5-8.5); PLATELET COUNT, AUTOMATED 199 10^3/uL (150-450); RED BLOOD COUNT 4.17 10^6/uL (4.00-5.40); WHITE BLOOD COUNT 11.6 10^3/uL (4.0-10.0)
[2021-01-28 08:39] LABS: CREATININE FOR GFR 1.13 MG/DL (0.55-1.30); DIGOXIN LEVEL 1.8 NG/ML (0.5-2.0); GLOMERULAR FILTRATION RATE 48.7 (>32); POTASSIUM SERUM 4.5 MEQ/L (3.5-5.1)
[2021-01-28] MEDS: FERROUS SULFATE 325MG TAB PO SCH (08:49)
[2021-01-28] MEDS: DOCUSATE SODIUM 100MG CAPSULE PO SCH ×2 (08:49→20:33)
[2021-01-28] MEDS: TORSEMIDE 10 MG TABLET PO SCH ×2 (08:49→20:45)
[2021-01-28] MEDS: OMEPRAZOLE 20 MG CAP PO SCH ×2 (08:49→20:33)
[2021-01-28] MEDS: LACTOBACILLUS ACIDOPHILUS CAP (BACID) PO SCH ×4 (08:49→20:33)
[2021-01-28] MEDS: BACTRIM 80MG/400MG TAB PO SCH (08:49)
[2021-01-28] MEDS: predniSONE 20 MG TAB PO SCH (08:49)
[2021-01-28] MEDS: POTASSIUM CHLORIDE 10MEQ SR TABLET PO SCH (08:49)
[2021-01-28] MEDS: CALCIUM/VITAMIN D 500 MG TAB PO SCH (08:50)
[2021-01-28] MEDS: MAGNESIUM OXIDE 400MG TAB (MAG-OX) PO SCH (08:50)
[2021-01-28] MEDS: APIXABAN 2.5 MG TAB (ELIQUIS) PO SCH ×2 (08:50→20:33)
[2021-01-28] MEDS: METOPROLOL SUCC (TopROL XL) 100MG *XL* TAB PO SCH (08:51)
[2021-01-28] MEDS: DIGOXIN 0.125 MG TAB PO SCH (08:51)
[2021-01-28] MEDS: REMEDY PHYTOPLEX Z-GUARD PASTE 113GM TUBE (FROM STOREROOM PRODUCT) TOP SCH ×3 (08:52→20:35)
[2021-01-28] MEDS: BRIMONIDINE 0.1% OPHTH SOLN 5 ML OU SCH ×2 (08:52→20:34)
[2021-01-28] MEDS: SODIUM CHLORIDE NASAL 0.65% SPRAY BTL (OCEAN) SCH ×3 (08:53→20:34)
[2021-01-28] MEDS: diltiaZEM **CD** 180 MG CAP PO SCH (09:00)
--- NOTE | 2021-01-28 13:36 | IPNPDOC ---
PM&R Progress Note DATE OF SERVICE: Jan 28, 2021 Leasing Professional Progress Note Subjective: Patient seen in the gym working on the arm bike stating she is breathing better and has no pain. REVIEW OF SYSTEMS: The following is a completed review of systems and has been reviewed. Review of systems otherwise unremarkable. PAIN: Patient self reports no pain EYES: No recent vision changes EARS, NOSE, & THROAT: No throat pain, or dysphagia, or rhinorrhea CARDIOVASCULAR: Denies chest pain or palpitations PULMONARY: + shortness of breath with exertion (improving) GASTROINTESTINAL: Denies constipation/diarrhea GENITOURINARY: denies dysuria MUSCULOSKELETAL: +generalized weakness NEUROLOGICAL:denies HEMATOLOGICAL: .denies easy bruising SKIN: .denies rash PSYCHIATRIC: Unremarkable. All other review of systems found to be negative. PHYSICAL EXAMINATION: VITAL SIGNS: Please see below. GENERAL: Pleasant and cooperative. No acute distress. HEENT: PERRL. Extraocular movements intact. Clear conjunctiva CARDIOVASCULAR: Irregular rate and rhythm. No murmurs, rubs, or gallops LUNGS: Clear to auscultation bilaterally. No wheezes. No rhonchi ABDOMEN: Soft, nontender, nondistended. Positive bowel sounds. Normal active bowel sounds NEUROLOGICAL: Alert and oriented times three. Cranial nerves II through XII grossly intact. Sensation diminished to light touch in stocking pattern EXTREMITIES: 5-\5 strength bilateral upper extremities. 5-\5 strength right lower extremity. 5-/5 strength in left lower extremity. +bilat LE edema (improving) ASSESSMENT:86-year-old F with past medical history of Afib, RA on chronic prednisone who presents status post respiratory failure due to interstitial lung disease exacerbation with CHF and worsening weakness PLAN: 1. 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 Cardiac- hx of AFib cont eliquis and Cardizem, recent RVR started on digoxin and Toprol- f/u cardiology on dc -chronic CHF with recent exacerbation, con torsemide, daily weights, fluid restrict -medicine consulted to assist in overall management 3. Resp- cont daily prednisone for interstitial lung disease (leukocytosis due to steroid use) with recent exacerbation vs pneumonitis, on prophylactic bactrim as well -cont supplemental 02 (on 2L at home)and will add bacid given chronic antibiotic use -combivent -f/u pulm on d/c 4. Renal- CKD with recent FLORECITA, will consult renal 5. Rheum- hx of RA on daily prednisone f/u rheum outpatient, holding off on restarting leflunomide as can cause interstitial disease 6. GI- +FOBT, will monitor for drop in Hgb, cont Prilosec 40mg BID while on steroids -f/u GI as outpatient 7. DVT ppx- on eliquis 8. Pain- tylenol prn 9. Dispo- TBD Allergies Coded Allergies: tetanus toxoid, adsorbed (Verified Allergy, Mild, POSITIVE PATCH TEST, 01/14) codeine (Verified Adverse Reaction, Mild, MAKES HYPER, 01/14/21) pneumococcal vaccine (Verified Adverse Reaction, Unknown, FLU SYMPTOMS, 01/14/21) Vital Signs Vital Signs Date Time Temp Pulse Resp B/P (MAP) Pulse Ox O2 Delivery O2 Flow Rate FiO2 01/28/21 09:00 84 101/68 01/28/21 06:00 97.4 17 97 Nasal Cannula 3.0 Laboratory Data CBC/BMP Laboratory Tests 01/28/21 07:40 Labs 24H Laboratory Tests 2 01/27/21 16:29: Bedside Glucose (Misc Panel) 173H 01/27/21 20:21: Bedside Glucose (Misc Panel) 164H 01/28/21 06:25: Bedside Glucose (Misc Panel) 81L 01/28/21 07:40: Immature Granulocyte % (Auto) 1.1, Neutrophils (%) (Auto) 87.0H, Lymphocytes (%) (Auto) 3.8L, Monocytes (%) (Auto) 7.5, Eosinophils (%) (Auto) 0.3, Basophils (%) (Auto) 0.3, Neutrophils # (Auto) 10.1H, Lymphocytes # (Auto) 0.4L, Monocytes # (Auto) 0.9H, Eosinophils # (Auto) 0.0, Basophils # (Auto) 0.0, Nucleated Red Blood Cells % (auto) 0.0, Anion Gap 3L, Glomerular Filtration Rate 48.7, Calcium Level 9.0, Digoxin Level 1.8 01/28/21 12:07: Bedside Glucose (Misc Panel) 120H Current Medications Current Medications Current Medications Medications (Trade) Dose Ordered Sig/Dayami Route PRN Reason Start Time Stop Time Status Last Admin Dose Admin Acetaminophen (Tylenol Tab) 650 mg Q4HP PRN PO fever/MILD PAIN (PS 1-4) 01/24/21 14:50 Albuterol/ Ipratropium (Combivent Respimat 100-20mcg) 1 puff RTID INH 01/24/21 20:00 01/28/21 07:03 Apixaban (Eliquis) 2.5 mg BID PO 01/25/21 21:00 01/28/21 08:50 Apixaban (Eliquis) 5 mg BID PO 01/24/21 21:00 01/25/21 10:43 DC 01/25/21 08:09 Brimonidine Tartrate (Alphagan P 0.1%) 1 drop BID OU 01/24/21 21:00 01/28/21 08:52 Brimonidine Tartrate (Alphagan P 0.1%) 1 drop QHS OU 01/24/21 21:00 01/24/21 15:10 DC Calcium/Vitamin D (Oscal D) 500 mg DAILY PO 01/25/21 09:00 01/28/21 08:50 Dextrose (Dextrose 50%) 25 ml ASDIRECTED PRN IV SEE LABEL COMMENTS 01/24/21 14:50 Digoxin (Lanoxin) 0.125 mg DAILY PO 01/25/21 09:00 01/28/21 08:51 Diltiazem HCl (Cardizem Cd) 360 mg DAILY PO 01/25/21 09:00 01/27/21 09:48 Docusate Sodium (Colace) 100 mg BID PO 01/24/21 21:00 01/28/21 08:49 Ferrous Sulfate (Ferrous Sulfate) 325 mg DAILY PO 01/25/21 09:00 01/28/21 08:49 Glucagon (Glucagon) 1 mg ASDIRECTED PRN SC SEE LABEL COMMENTS 01/24/21 14:50 Glucose (Glucose) 16 GM ASDIRECTED PRN PO SEE LABEL COMMENTS 01/24/21 14:50 Home Med (Home Med List Complete!) ASDIRECTED XX 01/24/21 17:20 01/24/21 17:45 DC Hydroxyzine HCl (Atarax) 10 mg QHS PO 01/24/21 21:00 01/27/21 21:17 Insulin Human Lispro (HumaLOG INSULIN) SEE PROTOCOL TABLE AC SC 01/24/21 17:30 01/27/21 17:45 Insulin Human Lispro (HumaLOG INSULIN) SEE PROTOCOL TABLE QHS SC 01/24/21 21:00 Lactobacillus Acidophilus (Bacid) 1 ea WMHS PO 01/24/21 18:00 01/28/21 12:46 Latanoprost (Xalatan 0.005% Op Soln) 1 drop QHS OU 01/24/21 21:00 01/27/21 21:18 Magnesium Oxide (Mag-Ox) 400 mg DAILY PO 01/25/21 09:00 01/28/21 08:50 Metoprolol Succinate (TopROL XL) 100 mg DAILY PO 01/25/21 09:00 01/27/21 09:47 Omeprazole (PriLOSEC) 40 mg BID PO 01/24/21 21:00 01/28/21 08:49 Polyethylene Glycol (Miralax) 1 pkt DAILY PRN PO CONSTIPATION 01/24/21 14:50 Potassium Chloride (Micro-K Extencaps) 10 meq DAILY PO 01/25/21 09:00 01/28/21 08:49 Prednisone (Deltasone) 40 mg DAILY PO 01/25/21 09:00 01/28/21 08:49 Senna (Senokot) 1 tab QHS PO 01/24/21 21:00 Sodium Chloride ([place] Nasal [place]) 2 spray TID NA 01/24/21 16:00 01/28/21 08:53 Torsemide (Demadex) 10 mg DAILY PO 01/25/21 09:00 01/28/21 08:49 Trimethoprim/ Sulfamethoxazole (Bactrim Ss, Septra Ss 80mg/ 400mg) 1 ea DAILY PO 01/25/21 09:00 01/28/21 08:49 VERONA EASTON MD Jan 28, 2021 13:36
[2021-01-28 14:00] VITALS: BP 100/60
[2021-01-28 20:00] VITALS: BP 109/75
[2021-01-28] MEDS: hydrOXYzine 10 MG TAB PO SCH (20:33)
[2021-01-28] MEDS: SENNA 8.6 MG TAB (SENOKOT) PO SCH (20:34)
[2021-01-28] MEDS: LATANOPROST 0.005% OPHTH SOLN 2.5 ML OU SCH (20:35)
--- NOTE | 2021-01-28 21:42 | IPN ---
NEPHROLOGY PROGRESS NOTE DATE: 01/28/2021 SUBJECTIVE: Mrs. Munoz is seen this morning on her bedside. She is currently in the gym working on exercise bike. She just finished her physical therapy and is resting. She denies any nausea or vomiting. Her dyspnea is reasonably well controlled and she remains on 2 liters of oxygen. It is important to note that she has been on home oxygen even prior to this hospitalization. PHYSICAL EXAMINATION: VITAL SIGNS: Temperature 97.4 degrees Fahrenheit, heart rate 84 per minute, respiratory rate 18 per minute, blood pressure earlier was 132/65 mmHg and most recent one was 101/68, oxygen saturation 97%. HEAD: Atraumatic. NECK: Supple and jugular venous distention (JVD) not elevated sitting upright. HEART SOUNDS: Irregular in rhythm. LUNGS: Slightly diminished breath sounds at bases. ABDOMEN: Soft and nontender. Bowel sounds are normal. EXTREMITIES: Without any cyanosis or clubbing. Lower extremity edema is still 1+ bilaterally. NEUROLOGIC: She is awake, alert and oriented times three. Her upper extremity deformities related to rheumatoid arthritis are unchanged. LABORATORY DATA: Today's labs show WBC 11.6, hemoglobin 13.2, hematocrit 41. Sodium 138, potassium 4.5, CO2 33, BUN 43, creatinine 1.13. PROBLEMS: 1. Acute kidney injury superimposed on chronic kidney disease. Kidney function has improved and electrolytes are stable. We will continue to monitor her renal function periodically. 2. Atrial fibrillation. Ventricular rate is well controlled and she remains on diltiazem, metoprolol and Eliquis. 3. Congestive heart failure. Volume status is slightly decompensated. She has persistent lower extremity edema and I am increasing her torsemide dose to 10 mg twice a day. Will have to watch her closely, as her blood pressure is, at times, a little bit soft.
[2021-01-29 05:38] VITALS: BP 137/82
[2021-01-29] MEDS: COMBIVENT RESPIMAT 100-20MCG INHALER 4GM INH SCH ×3 (07:14→18:14)
[2021-01-29] MEDS: HumaLOG INSULIN (NovoLOG) PER UNIT SC SCH ×4 (07:30→21:00)
[2021-01-29] MEDS: DOCUSATE SODIUM 100MG CAPSULE PO SCH ×2 (09:00→21:00)
[2021-01-29] MEDS: APIXABAN 2.5 MG TAB (ELIQUIS) PO SCH ×2 (09:10→21:03)
[2021-01-29] MEDS: DIGOXIN 0.125 MG TAB PO SCH (09:10)
[2021-01-29] MEDS: OMEPRAZOLE 20 MG CAP PO SCH ×2 (09:10→21:02)
[2021-01-29] MEDS: CALCIUM/VITAMIN D 500 MG TAB PO SCH (09:10)
[2021-01-29] MEDS: predniSONE 20 MG TAB PO SCH (09:10)
[2021-01-29] MEDS: diltiaZEM **CD** 180 MG CAP PO SCH (09:11)
[2021-01-29] MEDS: FERROUS SULFATE 325MG TAB PO SCH (09:11)
[2021-01-29] MEDS: TORSEMIDE 10 MG TABLET PO SCH ×2 (09:12→17:14)
[2021-01-29] MEDS: MAGNESIUM OXIDE 400MG TAB (MAG-OX) PO SCH (09:12)
[2021-01-29] MEDS: POTASSIUM CHLORIDE 10MEQ SR TABLET PO SCH (09:12)
[2021-01-29] MEDS: METOPROLOL SUCC (TopROL XL) 100MG *XL* TAB PO SCH (09:12)
[2021-01-29] MEDS: REMEDY PHYTOPLEX Z-GUARD PASTE 113GM TUBE (FROM STOREROOM PRODUCT) TOP SCH ×3 (09:17→21:00)
[2021-01-29] MEDS: BRIMONIDINE 0.1% OPHTH SOLN 5 ML OU SCH ×2 (09:17→21:08)
[2021-01-29] MEDS: SODIUM CHLORIDE NASAL 0.65% SPRAY BTL (OCEAN) SCH ×3 (09:17→21:07)
[2021-01-29] MEDS: BACTRIM 80MG/400MG TAB PO SCH (09:19)
[2021-01-29] MEDS: LACTOBACILLUS ACIDOPHILUS CAP (BACID) PO SCH ×4 (09:20→21:02)
--- NOTE | 2021-01-29 12:05 | IPNPDOC ---
Text Note Date of Service The patient was seen on 01/29/21. NOTE SUBJECTIVE: Ms. Munoz is laying comfortably in bed finished her breakfast. She was seen in the ARU today morning. She has no acute concerns does not look in any distress. OBJECTIVE: PHYSICAL EXAMINATION: VITAL SIGNS: please see below General: NAD, comfortable HEENT: PERRLA, EOMI, sclerae clear 2 L of oxygen via nasal cannula in place. Neck: supple, normal ROM, no JVD Respiratory: Crackles heard in bilateral lung bases, good inspiratory effort. CVS: RRR, normal S1, S2, no murmurs Abdo: soft, no masses, no hepatosplenomegaly, BS+, no rebound tenderness Extremities: 2+ pitting edema persistent bilateral lower extremities. No cyanosis. MSK: no joint deformities, normal ROM Neuro: no focal neuro deficits, moving all 4 extremities, CN2-12 intact. Strength 5/5 in all 4 extremities. No nystagmus. Psych: calm, cooperative, AAO x 3 ASSESSMENT AND PLAN: Patient is a very pleasant 86 year old female with past medical history of atrial fibrillation, chronic kidney disease, rheumatoid arthritis, and congestive heart failure presented to the floor as a transfer from [facility] due to worsening dyspnea and productive cough for the past 3 days. She said the dyspnea started gradually while she was walking, alleviates with resting, worsens with movement. Denies orthopnea or bendopnea. Patient since then has been discharged to the acute rehab unit after marked improvement. Patient continues to be on 2 L oxygen but that is her routine home oxygen no more increases required. Nephrology is on board. 1. Acute kidney injury superimposed on chronic kidney disease. Kidney function has improved and electrolytes are stable. We will continue to monitor her renal function periodically. 2. Atrial fibrillation. Ventricular rate is well controlled and she remains on diltiazem, metoprolol and Eliquis. 3. Congestive heart failure. Volume status is slightly decompensated. She continues to be on torsemide twice a day. However her blood pressure had gone down for a while. Will have to watch her closely. VS,Fishbone, I+O VS, Fishbone, I+O Vital Signs Date Time Temp Pulse Resp B/P (MAP) Pulse Ox O2 Delivery O2 Flow Rate FiO2 01/29/21 09:11 78 137/82 01/29/21 08:00 2.0 01/29/21 05:38 97.7 20 96 Nasal Cannula I&O- Last 24 Hours up to 6 AM 01/29/21 06:00 Intake Total 900 ml Balance 900 ml Linda Patino MD Jan 29, 2021 12:04
[2021-01-29 20:00] VITALS: BP 130/68
[2021-01-29] MEDS: SENNA 8.6 MG TAB (SENOKOT) PO SCH (21:00)
[2021-01-29] MEDS: hydrOXYzine 10 MG TAB PO SCH (21:03)
[2021-01-29] MEDS: LATANOPROST 0.005% OPHTH SOLN 2.5 ML OU SCH (21:07)
[2021-01-30 05:03] VITALS: BP 124/65
[2021-01-30] MEDS: HumaLOG INSULIN (NovoLOG) PER UNIT SC SCH ×4 (07:25→20:41)
[2021-01-30] MEDS: TORSEMIDE 10 MG TABLET PO SCH ×2 (07:26→16:48)
[2021-01-30] MEDS: MAGNESIUM OXIDE 400MG TAB (MAG-OX) PO SCH (07:26)
[2021-01-30] MEDS: LACTOBACILLUS ACIDOPHILUS CAP (BACID) PO SCH ×4 (07:26→20:40)
[2021-01-30] MEDS: predniSONE 20 MG TAB PO SCH (07:27)
[2021-01-30] MEDS: METOPROLOL SUCC (TopROL XL) 100MG *XL* TAB PO SCH (07:27)
[2021-01-30] MEDS: APIXABAN 2.5 MG TAB (ELIQUIS) PO SCH ×2 (07:27→20:40)
[2021-01-30] MEDS: CALCIUM/VITAMIN D 500 MG TAB PO SCH (07:27)
[2021-01-30] MEDS: FERROUS SULFATE 325MG TAB PO SCH (07:27)
[2021-01-30] MEDS: BACTRIM 80MG/400MG TAB PO SCH (07:27)
[2021-01-30] MEDS: diltiaZEM **CD** 180 MG CAP PO SCH (07:28)
[2021-01-30] MEDS: POTASSIUM CHLORIDE 10MEQ SR TABLET PO SCH (07:28)
[2021-01-30] MEDS: DIGOXIN 0.125 MG TAB PO SCH (07:28)
[2021-01-30] MEDS: OMEPRAZOLE 20 MG CAP PO SCH ×2 (07:29→20:40)
[2021-01-30] MEDS: SODIUM CHLORIDE NASAL 0.65% SPRAY BTL (OCEAN) SCH ×3 (07:35→20:46)
[2021-01-30] MEDS: BRIMONIDINE 0.1% OPHTH SOLN 5 ML OU SCH ×2 (07:35→20:45)
[2021-01-30] MEDS: REMEDY PHYTOPLEX Z-GUARD PASTE 113GM TUBE (FROM STOREROOM PRODUCT) TOP SCH ×3 (07:36→20:46)
[2021-01-30] MEDS: DOCUSATE SODIUM 100MG CAPSULE PO SCH ×2 (07:36→20:42)
[2021-01-30] MEDS: COMBIVENT RESPIMAT 100-20MCG INHALER 4GM INH SCH ×3 (08:02→20:00)
[2021-01-30 20:00] VITALS: BP 109/61
[2021-01-30] MEDS: hydrOXYzine 10 MG TAB PO SCH (20:40)
[2021-01-30] MEDS: SENNA 8.6 MG TAB (SENOKOT) PO SCH (20:41)
[2021-01-30] MEDS: LATANOPROST 0.005% OPHTH SOLN 2.5 ML OU SCH (20:46)
[2021-01-31 06:00] VITALS: BP 125/70
[2021-01-31 06:06] LABS: HEMATOCRIT 37.6 % (36.0-47.0); HEMOGLOBIN 12.1 g/dl (12.0-15.5); MEAN CORPUSCULAR HEMOGLOBIN 31.7 pg (27.0-33.0); MEAN CORPUSCULAR HGB CONC 32.2 g/dl (32.0-36.5); MEAN CORPUSCULAR VOLUME 98.4 fl (80.0-96.0); PLATELET COUNT, AUTOMATED 166 10^3/uL (150-450); RED BLOOD COUNT 3.82 10^6/uL (4.00-5.40); WHITE BLOOD COUNT 8.9 10^3/uL (4.0-10.0)
[2021-01-31 06:29] LABS: ALBUMIN 2.1 GM/DL (3.2-5.2); CALCIUM LEVEL 8.6 MG/DL (8.8-10.2); CREATININE FOR GFR 1.37 MG/DL (0.55-1.30); PHOSPHORUS LEVEL 2.7 MG/DL (2.5-4.9); POTASSIUM SERUM 4.1 MEQ/L (3.5-5.1)
[2021-01-31] MEDS: HumaLOG INSULIN (NovoLOG) PER UNIT SC SCH ×4 (07:25→21:00)
[2021-01-31] MEDS: COMBIVENT RESPIMAT 100-20MCG INHALER 4GM INH SCH ×3 (08:02→17:44)
[2021-01-31] MEDS: diltiaZEM **CD** 180 MG CAP PO SCH (09:00)
[2021-01-31] MEDS: TORSEMIDE 10 MG TABLET PO SCH ×2 (09:00→17:21)
[2021-01-31] MEDS: METOPROLOL SUCC (TopROL XL) 100MG *XL* TAB PO SCH (09:00)
[2021-01-31] MEDS: DOCUSATE SODIUM 100MG CAPSULE PO SCH ×2 (09:00→21:00)
[2021-01-31] MEDS: CALCIUM/VITAMIN D 500 MG TAB PO SCH (09:08)
[2021-01-31] MEDS: BACTRIM 80MG/400MG TAB PO SCH (09:08)
[2021-01-31] MEDS: OMEPRAZOLE 20 MG CAP PO SCH ×2 (09:08→21:09)
[2021-01-31] MEDS: APIXABAN 2.5 MG TAB (ELIQUIS) PO SCH ×2 (09:08→21:09)
[2021-01-31] MEDS: POTASSIUM CHLORIDE 10MEQ SR TABLET PO SCH (09:08)
[2021-01-31] MEDS: FERROUS SULFATE 325MG TAB PO SCH (09:08)
[2021-01-31] MEDS: predniSONE 20 MG TAB PO SCH (09:08)
[2021-01-31] MEDS: MAGNESIUM OXIDE 400MG TAB (MAG-OX) PO SCH (09:08)
[2021-01-31] MEDS: DIGOXIN 0.125 MG TAB PO SCH (09:09)
[2021-01-31] MEDS: REMEDY PHYTOPLEX Z-GUARD PASTE 113GM TUBE (FROM STOREROOM PRODUCT) TOP SCH ×3 (09:11→21:00)
[2021-01-31] MEDS: SODIUM CHLORIDE NASAL 0.65% SPRAY BTL (OCEAN) SCH ×3 (09:12→21:00)
[2021-01-31] MEDS: BRIMONIDINE 0.1% OPHTH SOLN 5 ML OU SCH ×2 (09:12→21:11)
[2021-01-31] MEDS: LACTOBACILLUS ACIDOPHILUS CAP (BACID) PO SCH ×4 (09:16→21:10)
--- NOTE | 2021-01-31 11:00 | IPNPDOC ---
PM&R Progress Note DATE OF SERVICE: Jan 31, 2021 [employer] Progress Note Subjective: Patient anselmo she is doing well and hopes to be cleared to go home by the end of the week. REVIEW OF SYSTEMS: The following is a completed review of systems and has been reviewed. Review of systems otherwise unremarkable. PAIN: Patient self reports no pain EYES: No recent vision changes EARS, NOSE, & THROAT: No throat pain, or dysphagia, or rhinorrhea CARDIOVASCULAR: Denies chest pain or palpitations PULMONARY: + shortness of breath with exertion (improving) GASTROINTESTINAL: Denies constipation/diarrhea GENITOURINARY: denies dysuria MUSCULOSKELETAL: +generalized weakness (improving) NEUROLOGICAL:denies HEMATOLOGICAL: .denies easy bruising SKIN: .denies rash PSYCHIATRIC: Unremarkable. All other review of systems found to be negative. PHYSICAL EXAMINATION: VITAL SIGNS: Please see below. GENERAL: Pleasant and cooperative. No acute distress. HEENT: PERRL. Extraocular movements intact. Clear conjunctiva CARDIOVASCULAR: Irregular rate and rhythm. No murmurs, rubs, or gallops LUNGS: Clear to auscultation bilaterally. No wheezes. No rhonchi ABDOMEN: Soft, nontender, nondistended. Positive bowel sounds. Normal active bowel sounds NEUROLOGICAL: Alert and oriented times three. Cranial nerves II through XII grossly intact. Sensation diminished to light touch in stocking pattern EXTREMITIES: 5-\5 strength bilateral upper extremities. 5-\5 strength right lower extremity. 5-/5 strength in left lower extremity. +bilat LE edema (improving) ASSESSMENT:86-year-old F with past medical history of Afib, RA on chronic prednisone who presents status post respiratory failure due to interstitial lung disease exacerbation with CHF and worsening weakness PLAN: 1. 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 Cardiac- hx of AFib cont eliquis and Cardizem, recent RVR started on digoxin and Toprol- f/u cardiology on dc -chronic CHF with recent exacerbation, con torsemide, daily weights, fluid restrict -medicine consulted to assist in overall management 3. Resp- cont daily prednisone for interstitial lung disease (leukocytosis due to steroid use) with recent exacerbation vs pneumonitis, on prophylactic bactrim as well -cont supplemental 02 (on 2L at home), cont add bacid given chronic antibiotic use -combivent -f/u pulm on d/c 4. Renal- CKD with recent FLORECITA, will consult renal 5. Rheum- hx of RA on daily prednisone f/u rheum outpatient, holding off on restarting leflunomide as can cause interstitial disease 6. GI- +FOBT, will monitor for drop in Hgb, cont Prilosec 40mg BID while on steroids -f/u GI as outpatient 7. DVT ppx- on eliquis 8. Pain- tylenol prn 9. Dispo- TBD Allergies Coded Allergies: tetanus toxoid, adsorbed (Verified Allergy, Mild, POSITIVE PATCH TEST, 01/14/21) codeine (Verified Adverse Reaction, Mild, MAKES HYPER, 01/14/21) pneumococcal vaccine (Verified Adverse Reaction, Unknown, FLU SYMPTOMS, 01/14/21) Vital Signs Vital Signs Date Time Temp Pulse Resp B/P (MAP) Pulse Ox O2 Delivery O2 Flow Rate FiO2 01/31/21 09:09 80 01/31/21 09:00 97/59 01/31/21 06:00 96.7 18 98 Nasal Cannula 2.0 Laboratory Data CBC/BMP Laboratory Tests 01/31/21 05:37 Labs 24H Laboratory Tests 2 01/30/21 11:41: Bedside Glucose (Misc Panel) 101 01/30/21 16:36: Bedside Glucose (Misc Panel) 165H 01/30/21 20:19: Bedside Glucose (Misc Panel) 149H 01/31/21 05:37: Nucleated Red Blood Cells % (auto) 0.0, Anion Gap 6L, Glomerular Filtration Rate 39.0, Calcium Level 8.6L, Phosphorus Level 2.7, Albumin 2.1L 01/31/21 05:50: Bedside Glucose (Misc Panel) 78L Current Medications Current Medications Current Medications Medications (Trade) Dose Ordered Sig/Dayami Route PRN Reason Start Time Stop Time Status Last Admin Dose Admin Acetaminophen (Tylenol Tab) 650 mg Q4HP PRN PO fever/MILD PAIN (PS 1-4) 01/24/21 14:50 Albuterol/ Ipratropium (Combivent Respimat 100-20mcg) 1 puff RTID INH 01/24/21 20:00 01/31/21 08:02 Apixaban (Eliquis) 2.5 mg BID PO 01/25/21 21:00 01/31/21 09:08 Apixaban (Eliquis) 5 mg BID PO 01/24/21 21:00 01/25/21 10:43 DC 01/25/21 08:09 Brimonidine Tartrate (Alphagan P 0.1%) 1 drop BID OU 01/24/21 21:00 01/31/21 09:12 Brimonidine Tartrate (Alphagan P 0.1%) 1 drop QHS OU 01/24/21 21:00 01/24/21 15:10 DC Calcium/Vitamin D (Oscal D) 500 mg DAILY PO 01/25/21 09:00 01/31/21 09:08 Dextrose (Dextrose 50%) 25 ml ASDIRECTED PRN IV SEE LABEL COMMENTS 01/24/21 14:50 Digoxin (Lanoxin) 0.125 mg DAILY PO 01/25/21 09:00 01/31/21 09:09 Diltiazem HCl (Cardizem Cd) 360 mg DAILY PO 01/25/21 09:00 01/30/21 07:28 Docusate Sodium (Colace) 100 mg BID PO 01/24/21 21:00 01/28/21 08:49 Ferrous Sulfate (Ferrous Sulfate) 325 mg DAILY PO 01/25/21 09:00 01/31/21 09:08 Glucagon (Glucagon) 1 mg ASDIRECTED PRN SC SEE LABEL COMMENTS 01/24/21 14:50 Glucose (Glucose) 16 GM ASDIRECTED PRN PO SEE LABEL COMMENTS 01/24/21 14:50 Home Med (Home Med List Complete!) ASDIRECTED XX 01/24/21 17:20 01/24/21 17:45 DC Hydroxyzine HCl (Atarax) 10 mg QHS PO 01/24/21 21:00 01/30/21 20:40 Insulin Human Lispro (HumaLOG INSULIN) SEE PROTOCOL TABLE AC SC 01/24/21 17:30 01/30/21 16:49 Insulin Human Lispro (HumaLOG INSULIN) SEE PROTOCOL TABLE QHS SC 01/24/21 21:00 Lactobacillus Acidophilus (Bacid) 1 ea WMHS PO 01/24/21 18:00 01/31/21 09:16 Latanoprost (Xalatan 0.005% Op Soln) 1 drop QHS OU 01/24/21 21:00 01/30/21 20:46 Magnesium Oxide (Mag-Ox) 400 mg DAILY PO 01/25/21 09:00 01/31/21 09:08 Metoprolol Succinate (TopROL XL) 100 mg DAILY PO 01/25/21 09:00 01/30/21 07:27 Omeprazole (PriLOSEC) 40 mg BID PO 01/24/21 21:00 01/31/21 09:08 Polyethylene Glycol (Miralax) 1 pkt DAILY PRN PO CONSTIPATION 01/24/21 14:50 Potassium Chloride (Micro-K Extencaps) 10 meq DAILY PO 01/25/21 09:00 01/31/21 09:08 Prednisone (Deltasone) 40 mg DAILY PO 01/25/21 09:00 01/31/21 09:08 Senna (Senokot) 1 tab QHS PO 01/24/21 21:00 Sodium Chloride ([place] Nasal [place]) 2 spray TID NA 01/24/21 16:00 01/31/21 09:12 Torsemide (Demadex) 10 mg BID@0900,1700 PO 01/28/21 20:45 01/30/21 16:48 Torsemide (Demadex) 10 mg DAILY PO 01/25/21 09:00 01/28/21 20:23 DC 01/28/21 08:49 Trimethoprim/ Sulfamethoxazole (Bactrim Ss, Septra Ss 80mg/ 400mg) 1 ea DAILY PO 01/25/21 09:00 01/31/21 09:08 VERONA EASTON MD Jan 31, 2021 11:00
[2021-01-31 14:00] VITALS: BP 109/65
[2021-01-31 20:00] VITALS: BP 142/70
[2021-01-31] MEDS: SENNA 8.6 MG TAB (SENOKOT) PO SCH (21:00)
[2021-01-31] MEDS: hydrOXYzine 10 MG TAB PO SCH (21:10)
[2021-01-31] MEDS: LATANOPROST 0.005% OPHTH SOLN 2.5 ML OU SCH (21:11)
--- NOTE | 2021-01-31 22:33 | IPNPDOC ---
Subjective CC/HPI The patient is a 86-year-old female admitted with a reason for visit of Respiratory Disorder,Non Ventilator. Events since last encounter Reports improving edema, Cr fluctuating 1.1<-->1.3, SOB at baseline General: Denies: ROS Unobtainable, Chills, Night Sweats, Fatigue, Malaise, Normal Appetite, Other Symptoms Constitutional: Denies: Chills, Fever, Malaise, Night Sweats, Weakness, Fatigue, Weight Loss, Lethargy, Other Eyes: Denies: Pain, Vision change, Conjunctivae inflammation, Eyelid inflammation, Redness, Other ENT: Denies: Head Aches, Ear Pain, Dysphagia, Sinus Congestion, Post Nasal Drip, Sore Throat, Epistaxis, Other Symptoms Skin: Denies: Rash, Lesions, Jaundice, Bruising, Itching, Dry, Breakdown, Nail Changes, Other Pulmonary: Reports: Dyspnea Cardiovascular: Denies: Chest Pain, Palpitations, Orthopnea, Paroxysmal Noc. Dyspnea, Edema, Lt Headedness, Other Symptoms Gastrointestinal: Denies: Nausea, Vomiting, Abdominal Pain, Diarrhea, Constipation, Melena, Hematochezia, Other Symptoms Genitourinary: Denies: Dysuria, Frequency, Incontinence, Hematuria, Retention, Other Symptoms Hematologic: Denies: Bruising, Bleeding Excessively, Petecchia, Purpura, Enlarged Lymph Nodes, Other Hematologic Endocrine: Denies: Polydipsia, Polyphagia, Polyuria, Heat Intolerance, Cold Intolerance, Other Endocrine Sx Musculoskeletal: Reports: Back Pain, Joint Pain Neurological: Denies: Weakness, Numbness, Incoordination, Change in speech, Confusion, Seizures, Other Symptoms Psych: Reports: Mood Normal; Denies: Anxiety, Depression, Memory Issues, Thoughts of Self Harm, Anger, Thoughts of Harming Other, Other Psych Objective Physical Examination General Exam: Alert, No Acute Distress EYE EXAM: PERRLA, EOMI, Sclera icteric ENT EXAM: Atraumatic, Mucous membr. moist/pink Neck Exam: Supple; No: JVD Chest Exam: Clear to auscultation, Normal air movement Heart Exam: Rate Normal, Irregular Rhythm ABDOMEN EXAM: Normal bowel sounds, Soft; No: Tenderness Extremity Exam: Edema (2+ edema upto mid shins); No: Clubbing, Cyanosis Skin Exam: Nl turgor and temperature Neuro Exam: Normal Gait, Strength at 5/5 X4 ext Psych Exam: Mental status NL Vital Signs/I&O Vital Signs Date Time Temp Pulse Resp B/P (MAP) Pulse Ox O2 Delivery O2 Flow Rate FiO2 01/31/21 20:00 97.7 88 18 142/70 (94) 91 Nasal Cannula 2.0 I&O- Last 24 Hours up to 6 AM 01/31/21 06:00 Intake Total 1260 ml Balance 1260 ml Laboratory Data Labs 24H Laboratory Tests 2 01/31/21 05:37: Nucleated Red Blood Cells % (auto) 0.0, Anion Gap 6L, Glomerular Filtration Rate 39.0, Calcium Level 8.6L, Phosphorus Level 2.7, Albumin 2.1L 01/31/21 05:50: Bedside Glucose (Misc Panel) 78L 01/31/21 12:09: Bedside Glucose (Misc Panel) 124H 01/31/21 17:09: Bedside Glucose (Misc Panel) 161H 01/31/21 19:46: Bedside Glucose (Misc Panel) 162H CBC/BMP Laboratory Tests 01/31/21 05:37 FSBS Laboratory Tests Test 01/31/21 05:50 01/31/21 12:09 01/31/21 17:09 01/31/21 19:46 Range/Units Bedside Glucose (Misc Panel) 78 124 161 162 83-110 MG/DL Current Medications Current Medications Medications (Trade) Dose Ordered Sig/Dayami Route PRN Reason Start Time Stop Time Status Last Admin Dose Admin Acetaminophen (Tylenol Tab) 650 mg Q4HP PRN PO fever/MILD PAIN (PS 1-4) 01/24/21 14:50 Albuterol/ Ipratropium (Combivent Respimat 100-20mcg) 1 puff RTID INH 01/24/21 20:00 01/31/21 17:44 Apixaban (Eliquis) 2.5 mg BID PO 01/25/21 21:00 01/31/21 21:09 Apixaban (Eliquis) 5 mg BID PO 01/24/21 21:00 01/25/21 10:43 DC 01/25/21 08:09 Brimonidine Tartrate (Alphagan P 0.1%) 1 drop BID OU 01/24/21 21:00 01/31/21 21:11 Brimonidine Tartrate (Alphagan P 0.1%) 1 drop QHS OU 01/24/21 21:00 01/24/21 15:10 DC Calcium/Vitamin D (Oscal D) 500 mg DAILY PO 01/25/21 09:00 01/31/21 09:08 Dextrose (Dextrose 50%) 25 ml ASDIRECTED PRN IV SEE LABEL COMMENTS 01/24/21 14:50 Digoxin (Lanoxin) 0.125 mg DAILY PO 01/25/21 09:00 01/31/21 09:09 Diltiazem HCl (Cardizem Cd) 360 mg DAILY PO 01/25/21 09:00 01/30/21 07:28 Docusate Sodium (Colace) 100 mg BID PO 01/24/21 21:00 01/28/21 08:49 Ferrous Sulfate (Ferrous Sulfate) 325 mg DAILY PO 01/25/21 09:00 01/31/21 09:08 Glucagon (Glucagon) 1 mg ASDIRECTED PRN SC SEE LABEL COMMENTS 01/24/21 14:50 Glucose (Glucose) 16 GM ASDIRECTED PRN PO SEE LABEL COMMENTS 01/24/21 14:50 Home Med (Home Med List Complete!) ASDIRECTED XX 01/24/21 17:20 01/24/21 17:45 DC Hydroxyzine HCl (Atarax) 10 mg QHS PO 01/24/21 21:00 01/31/21 21:10 Insulin Human Lispro (HumaLOG INSULIN) SEE PROTOCOL TABLE AC SC 01/24/21 17:30 01/31/21 17:21 Insulin Human Lispro (HumaLOG INSULIN) SEE PROTOCOL TABLE QHS SC 01/24/21 21:00 Lactobacillus Acidophilus (Bacid) 1 ea WMHS PO 01/24/21 18:00 01/31/21 21:10 Latanoprost (Xalatan 0.005% Op Soln) 1 drop QHS OU 01/24/21 21:00 01/31/21 21:11 Magnesium Oxide (Mag-Ox) 400 mg DAILY PO 01/25/21 09:00 01/31/21 09:08 Metoprolol Succinate (TopROL XL) 100 mg DAILY PO 01/25/21 09:00 01/30/21 07:27 Omeprazole (PriLOSEC) 40 mg BID PO 01/24/21 21:00 01/31/21 21:09 Polyethylene Glycol (Miralax) 1 pkt DAILY PRN PO CONSTIPATION 01/24/21 14:50 Potassium Chloride (Micro-K Extencaps) 10 meq DAILY PO 01/25/21 09:00 01/31/21 09:08 Prednisone (Deltasone) 40 mg DAILY PO 01/25/21 09:00 01/31/21 09:08 Senna (Senokot) 1 tab QHS PO 01/24/21 21:00 Sodium Chloride ([place] Nasal [place]) 2 spray TID NA 01/24/21 16:00 01/31/21 09:12 Torsemide (Demadex) 10 mg BID@0900,1700 PO 01/28/21 20:45 01/31/21 17:21 Torsemide (Demadex) 10 mg DAILY PO 01/25/21 09:00 01/28/21 20:23 DC 01/28/21 08:49 Trimethoprim/ Sulfamethoxazole (Bactrim Ss, Septra Ss 80mg/ 400mg) 1 ea DAILY PO 01/25/21 09:00 01/31/21 09:08 Allergies Coded Allergies: tetanus toxoid, adsorbed (Verified Allergy, Mild, POSITIVE PATCH TEST, 01/14/21) codeine (Verified Adverse Reaction, Mild, MAKES HYPER, 01/14/21) pneumococcal vaccine (Verified Adverse Reaction, Unknown, FLU SYMPTOMS, 01/14/21) Assessment/Plan Date Seen The patient was seen on 01/31/21 at 22:29. Plan / VTE VTE Prophylaxis Ordered?: Yes Plan Orders past 48 Hours Orders Fingerstick Blood Sugar (01/30/21 04:54) Renal Profile (01/31/21 06:00) Complete Blood Count (01/31/21 06:00) Fingerstick Blood Sugar (01/30/21 11:41) Fingerstick Blood Sugar (01/30/21 16:36) Fingerstick Blood Sugar (01/30/21 20:19) Fingerstick Blood Sugar (01/31/21 05:50) Cbc With Differential (02/02/21 06:00) Basic Metabolic Profile (02/02/21 06:00) Fingerstick Blood Sugar (01/31/21 12:09) Fingerstick Blood Sugar (01/31/21 17:09) Fingerstick Blood Sugar (01/31/21 19:46) Plan Text FLORECITA on CKd Afib with RVR HFpEF and leg edema Rheumatoid arthritis and Intrs lung disease Cont current dose torsemide, Afib controlled with multi drug regimen. CAROLYNN PERALTA MD Jan 31, 2021 22:33
[2021-02-01 06:00] VITALS: BP 128/89
[2021-02-01] MEDS: HumaLOG INSULIN (NovoLOG) PER UNIT SC SCH (07:12)
[2021-02-01] MEDS: COMBIVENT RESPIMAT 100-20MCG INHALER 4GM INH SCH ×3 (08:00→20:15)
[2021-02-01] MEDS: MAGNESIUM OXIDE 400MG TAB (MAG-OX) PO SCH (08:35)
[2021-02-01] MEDS: CALCIUM/VITAMIN D 500 MG TAB PO SCH (08:35)
[2021-02-01] MEDS: BACTRIM 80MG/400MG TAB PO SCH (08:35)
[2021-02-01] MEDS: APIXABAN 2.5 MG TAB (ELIQUIS) PO SCH ×2 (08:35→20:22)
[2021-02-01] MEDS: TORSEMIDE 10 MG TABLET PO SCH ×2 (08:35→16:47)
[2021-02-01] MEDS: POTASSIUM CHLORIDE 10MEQ SR TABLET PO SCH (08:35)
[2021-02-01] MEDS: LACTOBACILLUS ACIDOPHILUS CAP (BACID) PO SCH ×4 (08:35→20:22)
[2021-02-01] MEDS: METOPROLOL SUCC (TopROL XL) 100MG *XL* TAB PO SCH (08:36)
[2021-02-01] MEDS: OMEPRAZOLE 20 MG CAP PO SCH ×2 (08:36→20:22)
[2021-02-01] MEDS: predniSONE 20 MG TAB PO SCH (08:36)
[2021-02-01] MEDS: FERROUS SULFATE 325MG TAB PO SCH (08:36)
[2021-02-01] MEDS: DIGOXIN 0.125 MG TAB PO SCH (08:36)
[2021-02-01] MEDS: DOCUSATE SODIUM 100MG CAPSULE PO SCH ×2 (08:37→20:24)
[2021-02-01] MEDS: REMEDY PHYTOPLEX Z-GUARD PASTE 113GM TUBE (FROM STOREROOM PRODUCT) TOP SCH ×3 (08:37→20:24)
[2021-02-01] MEDS: diltiaZEM **CD** 180 MG CAP PO SCH (08:37)
[2021-02-01] MEDS: BRIMONIDINE 0.1% OPHTH SOLN 5 ML OU SCH ×2 (08:37→20:23)
[2021-02-01] MEDS: SODIUM CHLORIDE NASAL 0.65% SPRAY BTL (OCEAN) SCH ×3 (08:37→20:23)
--- NOTE | 2021-02-01 13:17 | IPNPDOC ---
Subjective CC/HPI The patient is a 86-year-old female admitted with a reason for visit of Res piratory Disorder,Non Ventilator. Events since last encounter Reports mild leg edema otherwise feeling better. No new labs available today General: Denies: ROS Unobtainable, Chills, Night Sweats, Fatigue, Malaise, Normal Appetite, Other Symptoms Constitutional: Denies: Chills, Fever, Malaise, Night Sweats, Weakness, Fatigue, Weight Loss, Lethargy, Other Eyes: Denies: Pain, Vision change, Conjunctivae inflammation, Eyelid inflammation, Redness, Other ENT: Denies: Head Aches, Ear Pain, Dysphagia, Sinus Congestion, Post Nasal Drip, Sore Throat, Epistaxis, Other Symptoms Skin: Denies: Rash, Lesions, Jaundice, Bruising, Itching, Dry, Breakdown, Nail Changes, Other Pulmonary: Denies: Dyspnea, Cough, Pleuritic Chest Pain, Other Symptoms Cardiovascular: Reports: Edema (ankles edema); Denies: Chest Pain, Palpitations, Orthopnea, Paroxysmal Noc. Dyspnea, Lt Headedness, Other Symptoms Gastrointestinal: Denies: Nausea, Vomiting, Abdominal Pain, Diarrhea, Constipation, Melena, Hematochezia, Other Symptoms Genitourinary: Denies: Dysuria, Frequency, Incontinence, Hematuria, Retention, Other Symptoms Hematologic: Denies: Bruising, Bleeding Excessively, Petecchia, Purpura, Enlarged Lymph Nodes, Other Hematologic Musculoskeletal: Denies: Neck Pain, Back Pain, Shoulder Pain, Arm Pain, Hand Pain, Leg Pain, Foot Pain, Joint Pain, Muscle Pain, Spasms, Other Symptoms Neurological: Denies: Weakness, Numbness, Incoordination, Change in speech, Confusion, Seizures, Other Symptoms Psych: Denies: Mood Normal, Anxiety, Depression, Memory Issues, Thoughts of Self Harm, Anger, Thoughts of Harming Other, Other Psych Objective Physical Examination General Exam: Alert, No Acute Distress EYE EXAM: PERRLA, EOMI ENT EXAM: Atraumatic, Mucous membr. moist/pink Neck Exam: Supple; No: JVD Chest Exam: Clear to auscultation, Normal air movement Heart Exam: Rate Normal, Irregular Rhythm ABDOMEN EXAM: Normal bowel sounds, Soft; No: Tenderness Extremity Exam: Edema (2+ edema upto mid shins); No: Clubbing, Cyanosis Skin Exam: Nl turgor and temperature Neuro Exam: Normal Gait, Strength at 5/5 X4 ext Psych Exam: Mental status NL Vital Signs/I&O Vital Signs Date Time Temp Pulse Resp B/P (MAP) Pulse Ox O2 Delivery O2 Flow Rate FiO2 02/01/21 08:36 79 120/80 02/01/21 06:00 97.6 16 97 Nasal Cannula 2.0 I&O- Last 24 Hours up to 6 AM 02/01/21 06:00 Intake Total 2430 ml Balance 2430 ml Laboratory Data Labs 24H Laboratory Tests 2 01/31/21 17:09: Bedside Glucose (Misc Panel) 161H 01/31/21 19:46: Bedside Glucose (Misc Panel) 162H 02/01/21 06:02: Bedside Glucose (Misc Panel) 71L 02/01/21 12:14: Bedside Glucose (Misc Panel) 84 FSBS Laboratory Tests Test 01/31/21 17:09 01/31/21 19:46 02/01/21 06:02 02/01/21 12:14 Range/Units Bedside Glucose (Misc Panel) 161 162 71 84 83-110 MG/DL Current Medications Current Medications Medications (Trade) Dose Ordered Sig/Dayami Route PRN Reason Start Time Stop Time Status Last Admin Dose Admin Acetaminophen (Tylenol Tab) 650 mg Q4HP PRN PO fever/MILD PAIN (PS 1-4) 01/24/21 14:50 Albuterol/ Ipratropium (Combivent Respimat 100-20mcg) 1 puff RTID INH 01/24/21 20:00 02/01/21 08:00 Apixaban (Eliquis) 2.5 mg BID PO 01/25/21 21:00 02/01/21 08:35 Apixaban (Eliquis) 5 mg BID PO 01/24/21 21:00 01/25/21 10:43 DC 01/25/21 08:09 Brimonidine Tartrate (Alphagan P 0.1%) 1 drop BID OU 01/24/21 21:00 02/01/21 08:37 Brimonidine Tartrate (Alphagan P 0.1%) 1 drop QHS OU 01/24/21 21:00 01/24/21 15:10 DC Calcium/Vitamin D (Oscal D) 500 mg DAILY PO 01/25/21 09:00 02/01/21 08:35 Dextrose (Dextrose 50%) 25 ml ASDIRECTED PRN IV SEE LABEL COMMENTS 01/24/21 14:50 02/01/21 10:55 DC Digoxin (Lanoxin) 0.125 mg DAILY PO 01/25/21 09:00 02/01/21 08:36 Diltiazem HCl (Cardizem Cd) 360 mg DAILY PO 01/25/21 09:00 02/01/21 08:37 Docusate Sodium (Colace) 100 mg BID PO 01/24/21 21:00 01/28/21 08:49 Ferrous Sulfate (Ferrous Sulfate) 325 mg DAILY PO 01/25/21 09:00 02/01/21 08:36 Glucagon (Glucagon) 1 mg ASDIRECTED PRN SC SEE LABEL COMMENTS 01/24/21 14:50 02/01/21 10:55 DC Glucose (Glucose) 16 GM ASDIRECTED PRN PO SEE LABEL COMMENTS 01/24/21 14:50 02/01/21 10:55 DC Home Med (Home Med List Complete!) ASDIRECTED XX 01/24/21 17:20 01/24/21 17:45 DC Hydroxyzine HCl (Atarax) 10 mg QHS PO 01/24/21 21:00 01/31/21 21:10 Insulin Human Lispro (HumaLOG INSULIN) SEE PROTOCOL TABLE AC SC 01/24/21 17:30 02/01/21 10:55 DC 01/31/21 17:21 Insulin Human Lispro (HumaLOG INSULIN) SEE PROTOCOL TABLE QHS SC 01/24/21 21:00 02/01/21 10:55 DC Lactobacillus Acidophilus (Bacid) 1 ea WMHS PO 01/24/21 18:00 02/01/21 12:25 Latanoprost (Xalatan 0.005% Op Soln) 1 drop QHS OU 01/24/21 21:00 01/31/21 21:11 Magnesium Oxide (Mag-Ox) 400 mg DAILY PO 01/25/21 09:00 02/01/21 08:35 Metoprolol Succinate (TopROL XL) 100 mg DAILY PO 01/25/21 09:00 02/01/21 08:36 Omeprazole (PriLOSEC) 40 mg BID PO 01/24/21 21:00 02/01/21 08:36 Polyethylene Glycol (Miralax) 1 pkt DAILY PRN PO CONSTIPATION 01/24/21 14:50 Potassium Chloride (Micro-K Extencaps) 10 meq DAILY PO 01/25/21 09:00 02/01/21 08:35 Prednisone (Deltasone) 40 mg DAILY PO 01/25/21 09:00 02/01/21 08:36 Senna (Senokot) 1 tab QHS PO 01/24/21 21:00 Sodium Chloride ([place] Nasal [place]) 2 spray TID NA 01/24/21 16:00 01/31/21 09:12 Torsemide (Demadex) 10 mg BID@0900,1700 PO 01/28/21 20:45 02/01/21 08:35 Torsemide (Demadex) 10 mg DAILY PO 01/25/21 09:00 01/28/21 20:23 DC 01/28/21 08:49 Trimethoprim/ Sulfamethoxazole (Bactrim Ss, Septra Ss 80mg/ 400mg) 1 ea DAILY PO 01/25/21 09:00 02/01/21 08:35 Allergies Coded Allergies: tetanus toxoid, adsorbed (Verified Allergy, Mild, POSITIVE PATCH TEST, 01/14/21) codeine (Verified Adverse Reaction, Mild, MAKES HYPER, 01/14/21) pneumococcal vaccine (Verified Adverse Reaction, Unknown, FLU SYMPTOMS, 01/14/21) Assessment/Plan Date Seen The patient was seen on 02/01/21 at 13:14. Plan / VTE VTE Prophylaxis Ordered?: Yes Plan Orders past 48 Hours Orders Fingerstick Blood Sugar (01/30/21 16:36) Fingerstick Blood Sugar (01/30/21 20:19) Fingerstick Blood Sugar (01/31/21 05:50) Cbc With Differential (02/02/21 06:00) Basic Metabolic Profile (02/02/21 06:00) Fingerstick Blood Sugar (01/31/21 12:09) Fingerstick Blood Sugar (01/31/21 17:09) Fingerstick Blood Sugar (01/31/21 19:46) Fingerstick Blood Sugar (02/01/21 06:02) Fingerstick Blood Sugar (02/01/21 12:14) Plan Text FLORECITA on CKd 3 Afib with RVR HFpEF and leg edema Rheumatoid arthritis and Intrs lung disease Weakness and physical deconditioning. Cont current dose torsemide, Afib controlled with multi drug regimen. Check labs in AM before further dose adjustment of diuretics. CAROLYNN PERALTA MD Feb 01, 2021 13:16
[2021-02-01 14:00] VITALS: BP 115/67
[2021-02-01 20:00] VITALS: BP 124/62
[2021-02-01] MEDS: hydrOXYzine 10 MG TAB PO SCH (20:22)
[2021-02-01] MEDS: LATANOPROST 0.005% OPHTH SOLN 2.5 ML OU SCH (20:23)
[2021-02-01] MEDS: SENNA 8.6 MG TAB (SENOKOT) PO SCH (20:24)
[2021-02-02 06:00] VITALS: BP 134/61
[2021-02-02] MEDS: COMBIVENT RESPIMAT 100-20MCG INHALER 4GM INH SCH ×3 (07:44→20:32)
[2021-02-02 07:52] LABS: BASO % 0.2 % (0.0-1.0); EOS # 0.1 10^3/uL (0.0-0.5); EOS % 0.6 % (0.0-3.0); HEMATOCRIT 38.7 % (36.0-47.0); HEMOGLOBIN 12.4 g/dl (12.0-15.5); LYMPH # 0.4 10^3/uL (1.5-5.0); LYMPH % 4.9 % (24.0-44.0); MEAN CORPUSCULAR HEMOGLOBIN 31.5 pg (27.0-33.0); MEAN CORPUSCULAR VOLUME 98.2 fl (80.0-96.0); MONO # 0.5 10^3/uL (0.0-0.8); MONO % 5.9 % (2.0-8.0); NEUTROPHILS # 7.2 10^3/uL (1.5-8.5); NEUTROPHILS % 87.1 % (36.0-66.0); PLATELET COUNT, AUTOMATED 130 10^3/uL (150-450); RED BLOOD COUNT 3.94 10^6/uL (4.00-5.40); WHITE BLOOD COUNT 8.3 10^3/uL (4.0-10.0)
[2021-02-02 08:15] LABS: CALCIUM LEVEL 8.6 MG/DL (8.8-10.2); CREATININE FOR GFR 1.02 MG/DL (0.55-1.30); GLOMERULAR FILTRATION RATE 54.8 (>32); POTASSIUM SERUM 4.2 MEQ/L (3.5-5.1)
[2021-02-02] MEDS: REMEDY PHYTOPLEX Z-GUARD PASTE 113GM TUBE (FROM STOREROOM PRODUCT) TOP SCH ×3 (09:00→20:16)
[2021-02-02] MEDS: SODIUM CHLORIDE NASAL 0.65% SPRAY BTL (OCEAN) SCH ×3 (09:00→20:15)
[2021-02-02] MEDS: DOCUSATE SODIUM 100MG CAPSULE PO SCH ×2 (09:00→20:15)
[2021-02-02] MEDS: LACTOBACILLUS ACIDOPHILUS CAP (BACID) PO SCH ×4 (09:17→20:15)
[2021-02-02] MEDS: MAGNESIUM OXIDE 400MG TAB (MAG-OX) PO SCH (09:17)
[2021-02-02] MEDS: OMEPRAZOLE 20 MG CAP PO SCH ×2 (09:17→20:15)
[2021-02-02] MEDS: FERROUS SULFATE 325MG TAB PO SCH (09:17)
[2021-02-02] MEDS: APIXABAN 2.5 MG TAB (ELIQUIS) PO SCH ×2 (09:18→20:15)
[2021-02-02] MEDS: TORSEMIDE 10 MG TABLET PO SCH (09:18)
[2021-02-02] MEDS: BACTRIM 80MG/400MG TAB PO SCH (09:18)
[2021-02-02] MEDS: DIGOXIN 0.125 MG TAB PO SCH (09:18)
[2021-02-02] MEDS: predniSONE 20 MG TAB PO SCH (09:18)
[2021-02-02] MEDS: POTASSIUM CHLORIDE 10MEQ SR TABLET PO SCH (09:18)
[2021-02-02] MEDS: CALCIUM/VITAMIN D 500 MG TAB PO SCH (09:18)
[2021-02-02] MEDS: diltiaZEM **CD** 180 MG CAP PO SCH (09:19)
[2021-02-02] MEDS: METOPROLOL SUCC (TopROL XL) 100MG *XL* TAB PO SCH (09:19)
[2021-02-02] MEDS: BRIMONIDINE 0.1% OPHTH SOLN 5 ML OU SCH ×2 (09:20→20:16)
--- NOTE | 2021-02-02 12:22 | IPNPDOC ---
PM&R Progress Note DATE OF SERVICE: Feb 01, 2021 [employer] Equipment [employer] Progress Note Subjective: Patient seen in her room stating she is feeling stronger and her respiratory symptoms are getting better. REVIEW OF SYSTEMS: The following is a completed review of systems and has been reviewed. Review of systems otherwise unremarkable. PAIN: Patient self reports no pain EYES: No recent vision changes EARS, NOSE, & THROAT: No throat pain, or dysphagia, or rhinorrhea CARDIOVASCULAR: Denies chest pain or palpitations PULMONARY: + shortness of breath with exertion (improving) GASTROINTESTINAL: Denies constipation/diarrhea GENITOURINARY: denies dysuria MUSCULOSKELETAL: +generalized weakness (improving) NEUROLOGICAL:denies HEMATOLOGICAL: .denies easy bruising SKIN: .denies rash PSYCHIATRIC: Unremarkable. All other review of systems found to be negative. PHYSICAL EXAMINATION: VITAL SIGNS: Please see below. GENERAL: Pleasant and cooperative. No acute distress. HEENT: PERRL. Extraocular movements intact. Clear conjunctiva CARDIOVASCULAR: Irregular rate and rhythm. No murmurs, rubs, or gallops LUNGS: Clear to auscultation bilaterally. No wheezes. No rhonchi ABDOMEN: Soft, nontender, nondistended. Positive bowel sounds. Normal active bowel sounds NEUROLOGICAL: Alert and oriented times three. Cranial nerves II through XII grossly intact. Sensation diminished to light touch in stocking pattern EXTREMITIES: 5-\5 strength bilateral upper extremities. 5-\5 strength right lower extremity. 5-/5 strength in left lower extremity. +bilat LE edema (improving) ASSESSMENT:86-year-old F with past medical history of Afib, RA on chronic predn isone who presents status post respiratory failure due to interstitial lung disease exacerbation with CHF and worsening weakness PLAN: 1. 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 Cardiac- hx of AFib cont eliquis and Cardizem, recent RVR started on digoxin and Toprol- f/u cardiology on dc -chronic CHF with recent exacerbation, con torsemide, daily weights, fluid restrict -medicine consulted to assist in overall management 3. Resp- cont daily prednisone for interstitial lung disease (leukocytosis due to steroid use) with recent exacerbation vs pneumonitis, on prophylactic bactrim as well -cont supplemental 02 (on 2L at home), cont add bacid given chronic antibiotic use -combivent -f/u pulm on d/c 4. Renal- CKD with recent FLORECITA, renal following, recommendations appreciated 5. Rheum- hx of RA on daily prednisone f/u rheum outpatient, holding off on restarting leflunomide as can cause interstitial disease 6. GI- +FOBT, will monitor for drop in Hgb, cont Prilosec 40mg BID while on steroids -f/u GI as outpatient 7. DVT ppx- on eliquis 8. Pain- tylenol prn 9. Dispo- 02-03-21 to home, progressing towards goals Allergies Coded Allergies: tetanus toxoid, adsorbed (Verified Allergy, Mild, POSITIVE PATCH TEST, 01/14/21) codeine (Verified Adverse Reaction, Mild, MAKES HYPER, 01/14/21) pneumococcal vaccine (Verified Adverse Reaction, Unknown, FLU SYMPTOMS, 01/14/21) Vital Signs Vital Signs Date Time Temp Pulse Resp B/P (MAP) Pulse Ox O2 Delivery O2 Flow Rate FiO2 02/02/21 09:19 79 137/69 02/02/21 09:00 2.0 02/02/21 06:00 97.3 18 96 Nasal Cannula Laboratory Data CBC/BMP Laboratory Tests 02/02/21 07:12 Labs 24H Laboratory Tests 2 02/01/21 16:49: Bedside Glucose (Misc Panel) 203H 02/02/21 07:12: Immature Granulocyte % (Auto) 1.3, Neutrophils (%) (Auto) 87.1H, Lymphocytes (%) (Auto) 4.9L, Monocytes (%) (Auto) 5.9, Eosinophils (%) (Auto) 0.6, Basophils (%) (Auto) 0.2, Neutrophils # (Auto) 7.2, Lymphocytes # (Auto) 0.4L, Monocytes # (Auto) 0.5, Eosinophils # (Auto) 0.1, Basophils # (Auto) 0.0, Nucleated Red Blood Cells % (auto) 0.0, Anion Gap 5L, Glomerular Filtration Rate 54.8, Calcium Level 8.6L Current Medications Current Medications Current Medications Medications (Trade) Dose Ordered Sig/Dayami Route PRN Reason Start Time Stop Time Status Last Admin Dose Admin Acetaminophen (Tylenol Tab) 650 mg Q4HP PRN PO fever/MILD PAIN (PS 1-4) 01/24/21 14:50 Albuterol/ Ipratropium (Combivent Respimat 100-20mcg) 1 puff RTID INH 01/24/21 20:00 02/02/21 07:44 Apixaban (Eliquis) 2.5 mg BID PO 01/25/21 21:00 02/02/21 09:18 Apixaban (Eliquis) 5 mg BID PO 01/24/21 21:00 01/25/21 10:43 DC 01/25/21 08:09 Brimonidine Tartrate (Alphagan P 0.1%) 1 drop BID OU 01/24/21 21:00 02/02/21 09:20 Brimonidine Tartrate (Alphagan P 0.1%) 1 drop QHS OU 01/24/21 21:00 01/24/21 15:10 DC Calcium/Vitamin D (Oscal D) 500 mg DAILY PO 01/25/21 09:00 02/02/21 09:18 Dextrose (Dextrose 50%) 25 ml ASDIRECTED PRN IV SEE LABEL COMMENTS 01/24/21 14:50 02/01/21 10:55 DC Digoxin (Lanoxin) 0.125 mg DAILY PO 01/25/21 09:00 02/02/21 09:18 Diltiazem HCl (Cardizem Cd) 360 mg DAILY PO 01/25/21 09:00 02/02/21 09:19 Docusate Sodium (Colace) 100 mg BID PO 01/24/21 21:00 01/28/21 08:49 Ferrous Sulfate (Ferrous Sulfate) 325 mg DAILY PO 01/25/21 09:00 02/02/21 09:17 Glucagon (Glucagon) 1 mg ASDIRECTED PRN SC SEE LABEL COMMENTS 01/24/21 14:50 02/01/21 10:55 DC Glucose (Glucose) 16 GM ASDIRECTED PRN PO SEE LABEL COMMENTS 01/24/21 14:50 02/01/21 10:55 DC Home Med (Home Med List Complete!) ASDIRECTED XX 01/24/21 17:20 01/24/21 17:45 DC Hydroxyzine HCl (Atarax) 10 mg QHS PO 01/24/21 21:00 02/01/21 20:22 Insulin Human Lispro (HumaLOG INSULIN) SEE PROTOCOL TABLE AC SC 01/24/21 17:30 02/01/21 10:55 DC 01/31/21 17:21 Insulin Human Lispro (HumaLOG INSULIN) SEE PROTOCOL TABLE QHS SC 01/24/21 21:00 02/01/21 10:55 DC Lactobacillus Acidophilus (Bacid) 1 ea WMHS PO 01/24/21 18:00 02/02/21 12:04 Latanoprost (Xalatan 0.005% Op Soln) 1 drop QHS OU 01/24/21 21:00 02/01/21 20:23 Magnesium Oxide (Mag-Ox) 400 mg DAILY PO 01/25/21 09:00 02/02/21 09:17 Metoprolol Succinate (TopROL XL) 100 mg DAILY PO 01/25/21 09:00 02/02/21 09:19 Omeprazole (PriLOSEC) 40 mg BID PO 01/24/21 21:00 02/02/21 09:17 Polyethylene Glycol (Miralax) 1 pkt DAILY PRN PO CONSTIPATION 01/24/21 14:50 Potassium Chloride (Micro-K Extencaps) 10 meq DAILY PO 01/25/21 09:00 02/02/21 09:18 Prednisone (Deltasone) 40 mg DAILY PO 01/25/21 09:00 02/02/21 09:18 Senna (Senokot) 1 tab QHS PO 01/24/21 21:00 Sodium Chloride (Compo Nasal [place]) 2 spray TID NA 01/24/21 16:00 02/01/21 20:23 Torsemide (Demadex) 10 mg BID@0900,1700 PO 01/28/21 20:45 02/02/21 11:47 DC 02/02/21 09:18 Torsemide (Demadex) 10 mg DAILY PO 01/25/21 09:00 01/28/21 20:23 DC 01/28/21 08:49 Torsemide (Demadex) 20 mg DAILY PO 02/03/21 09:00 Trimethoprim/ Sulfamethoxazole (Bactrim Ss, Septra Ss 80mg/ 400mg) 1 ea DAILY PO 01/25/21 09:00 02/02/21 09:18 VERONA EASTON MD Feb 02, 2021 12:22
[2021-02-02 14:00] VITALS: BP 115/58
[2021-02-02 20:00] VITALS: BP 102/59
[2021-02-02] MEDS: SENNA 8.6 MG TAB (SENOKOT) PO SCH (20:15)
[2021-02-02] MEDS: hydrOXYzine 10 MG TAB PO SCH (20:15)
[2021-02-02] MEDS: LATANOPROST 0.005% OPHTH SOLN 2.5 ML OU SCH (20:16)
--- NOTE | 2021-02-02 22:34 | IPNPDOC ---
Subjective CC/HPI The patient is a 86-year-old female admitted with a reason for visit of Respiratory Disorder,Non Ventilator. Events since last encounter Denies any active complaints. Moderate persistent edema at baseline. Renal function is stable and improving Cr 1.3-->1.02. General: Denies: ROS Unobtainable, Chills, Night Sweats, Fatigue, Malaise, Normal Appetite, Other Symptoms Constitutional: Denies: Chills, Fever, Malaise, Night Sweats, Weakness, Fatigue, Weight Loss, Lethargy, Other Eyes: Denies: Pain, Vision change, Conjunctivae inflammation, Eyelid inflammation, Redness, Other ENT: Denies: Head Aches, Ear Pain, Dysphagia, Sinus Congestion, Post Nasal Drip, Sore Throat, Epistaxis, Other Symptoms Skin: Denies: Rash, Lesions, Jaundice, Bruising, Itching, Dry, Breakdown, Nail Changes, Other Pulmonary: Denies: Dyspnea, Cough, Pleuritic Chest Pain, Other Symptoms Cardiovascular: Reports: Edema (Both legs); Denies: Chest Pain, Palpitations, Orthopnea, Paroxysmal Noc. Dyspnea, Lt Headedness, Other Symptoms Gastrointestinal: Denies: Nausea, Vomiting, Abdominal Pain, Diarrhea, Constipation, Melena, Hematochezia, Other Symptoms Genitourinary: Denies: Dysuria, Frequency, Incontinence, Hematuria, Retention, Other Symptoms Hematologic: Denies: Bruising, Bleeding Excessively, Petecchia, Purpura, Enlarged Lymph Nodes, Other Hematologic Musculoskeletal: Denies: Neck Pain, Back Pain, Shoulder Pain, Arm Pain, Hand Pain, Leg Pain, Foot Pain, Joint Pain, Muscle Pain, Spasms, Other Symptoms Neurological: Denies: Weakness, Numbness, Incoordination, Change in speech, Confusion, Seizures, Other Symptoms Psych: Reports: Mood Normal Objective Physical Examination General Exam: Alert, No Acute Distress EYE EXAM: PERRLA, EOMI ENT EXAM: Atraumatic, Mucous membr. moist/pink Neck Exam: Supple; No: JVD Chest Exam: Clear to auscultation, Normal air movement Heart Exam: Rate Normal, Irregular Rhythm ABDOMEN EXAM: Normal bowel sounds, Soft; No: Tenderness Extremity Exam: Edema (2+ edema upto mid shins); No: Clubbing, Cyanosis Skin Exam: Nl turgor and temperature Neuro Exam: Normal Gait, Strength at 5/5 X4 ext Psych Exam: Mental status NL Vital Signs/I&O Vital Signs Date Time Temp Pulse Resp B/P (MAP) Pulse Ox O2 Delivery O2 Flow Rate FiO2 02/02/21 20:00 98.2 62 19 102/59 (73) 98 Nasal Cannula 2.0 I&O- Last 24 Hours up to 6 AM 02/02/21 06:00 Intake Total 760 ml Output Total 0 ml Balance 760 ml Laboratory Data Labs 24H Laboratory Tests 2 02/02/21 07:12: Immature Granulocyte % (Auto) 1.3, Neutrophils (%) (Auto) 87.1H, Lymphocytes (%) (Auto) 4.9L, Monocytes (%) (Auto) 5.9, Eosinophils (%) (Auto) 0.6, Basophils (%) (Auto) 0.2, Neutrophils # (Auto) 7.2, Lymphocytes # (Auto) 0.4L, Monocytes # (Auto) 0.5, Eosinophils # (Auto) 0.1, Basophils # (Auto) 0.0, Nucleated Red Blood Cells % (auto) 0.0, Anion Gap 5L, Glomerular Filtration Rate 54.8, Calcium Level 8.6L CBC/BMP Laboratory Tests 02/02/21 07:12 Current Medications Current Medications Medications (Trade) Dose Ordered Sig/Dayami Route PRN Reason Start Time Stop Time Status Last Admin Dose Admin Acetaminophen (Tylenol Tab) 650 mg Q4HP PRN PO fever/MILD PAIN (PS 1-4) 01/24/21 14:50 Albuterol/ Ipratropium (Combivent Respimat 100-20mcg) 1 puff RTID INH 01/24/21 20:00 02/02/21 20:32 Apixaban (Eliquis) 2.5 mg BID PO 01/25/21 21:00 02/02/21 20:15 Apixaban (Eliquis) 5 mg BID PO 01/24/21 21:00 01/25/21 10:43 DC 01/25/21 08:09 Brimonidine Tartrate (Alphagan P 0.1%) 1 drop BID OU 01/24/21 21:00 02/02/21 20:16 Brimonidine Tartrate (Alphagan P 0.1%) 1 drop QHS OU 01/24/21 21:00 01/24/21 15:10 DC Calcium/Vitamin D (Oscal D) 500 mg DAILY PO 01/25/21 09:00 02/02/21 09:18 Dextrose (Dextrose 50%) 25 ml ASDIRECTED PRN IV SEE LABEL COMMENTS 01/24/21 14:50 02/01/21 10:55 DC Digoxin (Lanoxin) 0.125 mg DAILY PO 01/25/21 09:00 02/02/21 09:18 Diltiazem HCl (Cardizem Cd) 360 mg DAILY PO 01/25/21 09:00 02/02/21 09:19 Docusate Sodium (Colace) 100 mg BID PO 01/24/21 21:00 01/28/21 08:49 Ferrous Sulfate (Ferrous Sulfate) 325 mg DAILY PO 01/25/21 09:00 02/02/21 09:17 Glucagon (Glucagon) 1 mg ASDIRECTED PRN SC SEE LABEL COMMENTS 01/24/21 14:50 02/01/21 10:55 DC Glucose (Glucose) 16 GM ASDIRECTED PRN PO SEE LABEL COMMENTS 01/24/21 14:50 02/01/21 10:55 DC Home Med (Home Med List Complete!) ASDIRECTED XX 01/24/21 17:20 01/24/21 17:45 DC Hydroxyzine HCl (Atarax) 10 mg QHS PO 01/24/21 21:00 02/02/21 20:15 Insulin Human Lispro (HumaLOG INSULIN) SEE PROTOCOL TABLE AC SC 01/24/21 17:30 02/01/21 10:55 DC 01/31/21 17:21 Insulin Human Lispro (HumaLOG INSULIN) SEE PROTOCOL TABLE QHS SC 01/24/21 21:00 02/01/21 10:55 DC Lactobacillus Acidophilus (Bacid) 1 ea WMHS PO 01/24/21 18:00 02/02/21 20:15 Latanoprost (Xalatan 0.005% Op Soln) 1 drop QHS OU 01/24/21 21:00 02/02/21 20:16 Magnesium Oxide (Mag-Ox) 400 mg DAILY PO 01/25/21 09:00 02/02/21 09:17 Metoprolol Succinate (TopROL XL) 100 mg DAILY PO 01/25/21 09:00 02/02/21 09:19 Omeprazole (PriLOSEC) 40 mg BID PO 01/24/21 21:00 02/02/21 20:15 Polyethylene Glycol (Miralax) 1 pkt DAILY PRN PO CONSTIPATION 01/24/21 14:50 Potassium Chloride (Micro-K Extencaps) 10 meq DAILY PO 01/25/21 09:00 02/02/21 09:18 Prednisone (Deltasone) 40 mg DAILY PO 01/25/21 09:00 02/02/21 09:18 Senna (Senokot) 1 tab QHS PO 01/24/21 21:00 Sodium Chloride ([place]ary Nasal [place]) 2 spray TID NA 01/24/21 16:00 02/02/21 20:15 Torsemide (Demadex) 10 mg BID@0900,1700 PO 01/28/21 20:45 02/02/21 11:47 DC 02/02/21 09:18 Torsemide (Demadex) 10 mg DAILY PO 01/25/21 09:00 01/28/21 20:23 DC 01/28/21 08:49 Torsemide (Demadex) 20 mg DAILY PO 02/03/21 09:00 Trimethoprim/ Sulfamethoxazole (Bactrim Ss, Septra Ss 80mg/ 400mg) 1 ea DAILY PO 01/25/21 09:00 02/02/21 09:18 Allergies Coded Allergies: tetanus toxoid, adsorbed (Verified Allergy, Mild, POSITIVE PATCH TEST, 01/14/21) codeine (Verified Adverse Reaction, Mild, MAKES HYPER, 01/14/21) pneumococcal vaccine (Verified Adverse Reaction, Unknown, FLU SYMPTOMS, 01/14/21) Assessment/Plan Date Seen The patient was seen on 02/02/21 at 22:31. Plan / VTE VTE Prophylaxis Ordered?: Yes Plan Orders past 48 Hours Orders Fingerstick Blood Sugar (02/01/21 06:02) Fingerstick Blood Sugar (02/01/21 12:14) Fingerstick Blood Sugar (02/01/21 16:49) Torsemide (Demadex) (02/03/21 09:00) Room Privileges (Pm&R) (02/02/21 12:23) Plan Text FLORECITA on CKd 3, improving now Afib with RVR HFpEF and leg edema(persistent) Rheumatoid arthritis and Intrs lung disease Weakness and physical deconditioning. Change torsemide from 10 mg bid to 20 mg daily, Afib controlled with multi drug regimen. Renal function improved back to baseline. CAROLYNN PERALTA MD Feb 02, 2021 22:34
[2021-02-03 05:38] VITALS: BP 128/78
[2021-02-03] MEDS: COMBIVENT RESPIMAT 100-20MCG INHALER 4GM INH SCH ×2 (08:24→13:38)
[2021-02-03] MEDS: LACTOBACILLUS ACIDOPHILUS CAP (BACID) PO SCH ×2 (08:55→12:50)
[2021-02-03] MEDS: APIXABAN 2.5 MG TAB (ELIQUIS) PO SCH (08:55)
[2021-02-03] MEDS: POTASSIUM CHLORIDE 10MEQ SR TABLET PO SCH (08:56)
[2021-02-03] MEDS: OMEPRAZOLE 20 MG CAP PO SCH (08:56)
[2021-02-03] MEDS: BACTRIM 80MG/400MG TAB PO SCH (08:56)
[2021-02-03] MEDS: MAGNESIUM OXIDE 400MG TAB (MAG-OX) PO SCH (08:56)
[2021-02-03] MEDS: CALCIUM/VITAMIN D 500 MG TAB PO SCH (08:56)
[2021-02-03] MEDS: FERROUS SULFATE 325MG TAB PO SCH (08:56)
[2021-02-03] MEDS: REMEDY PHYTOPLEX Z-GUARD PASTE 113GM TUBE (FROM STOREROOM PRODUCT) TOP SCH (08:57)
[2021-02-03] MEDS: predniSONE 20 MG TAB PO SCH (08:57)
[2021-02-03] MEDS: DOCUSATE SODIUM 100MG CAPSULE PO SCH (08:57)
[2021-02-03] MEDS: SODIUM CHLORIDE NASAL 0.65% SPRAY BTL (OCEAN) SCH (08:57)
[2021-02-03] MEDS: BRIMONIDINE 0.1% OPHTH SOLN 5 ML OU SCH (08:58)
[2021-02-03] MEDS: DIGOXIN 0.125 MG TAB PO SCH (08:58)
[2021-02-03 08:59] VITALS: BP 124/64
[2021-02-03] MEDS: diltiaZEM **CD** 180 MG CAP PO SCH (08:59)
[2021-02-03] MEDS: METOPROLOL SUCC (TopROL XL) 100MG *XL* TAB PO SCH (08:59)
[2021-02-03] MEDS ORDERED: TORSEMIDE 20 MG TAB PO SCH (09:00)
[2021-02-03] MEDS ORDERED: TORS20TA2 PO (10:05)
[2021-02-03] MEDS ORDERED: MAGN400T2 PO (10:05)
[2021-02-03] MEDS ORDERED: DILT1CAP46 PO (10:05)
[2021-02-03] MEDS ORDERED: RISATAB3 PO (10:05)
[2021-02-03] MEDS ORDERED: POTA10CA32 PO (10:05)
[2021-02-03] MEDS ORDERED: PRED10TA2 PO (10:05)
[2021-02-03] MEDS ORDERED: SULF400T14 PO (10:05)
[2021-02-03] MEDS ORDERED: TOPR100T PO (10:05)
[2021-02-03] MEDS ORDERED: ELIQ2.5T PO (10:05)
[2021-02-03] MEDS ORDERED: OMEP-221 PO (10:05)
[2021-02-03] MEDS ORDERED: DIGO0.123 PO (10:05)
[2021-02-03] MEDS ORDERED: HYDR-643 PO (10:05)
[2021-02-03 14:00] VITALS: BP 135/81
== END 2021-02-03 14:20 | disposition home health service (06) | DRG 92 ==
LOC: M PM&R 16:35
PROVIDERS: ADMIT Physical Medicine & Rehabilitation; ATTEND Physical Medicine & Rehabilitation
DX: G72.2 Myopathy due to other toxic agents (principal); J96.11 Chronic respiratory failure with hypoxia; I50.32 Chronic diastolic (congestive) heart failure; R53.1 Weakness; I48.91 Unspecified atrial fibrillation; M06.9 Rheumatoid arthritis, unspecified; N18.30 Chronic kidney disease, stage 3 unspecified; I71.4 Abdominal aortic aneurysm, without rupture; J84.10 Pulmonary fibrosis, unspecified; Z74.1 Need for assistance with personal care; Z74.09 Other reduced mobility; Z66 Do not resuscitate; Z87.891 Personal history of nicotine dependence; T38.0X5A Adverse effect of glucocorticoids and synthetic analogues, initial encounter; Z79.01 Long term (current) use of anticoagulants; Z79.52 Long term (current) use of systemic steroids; Z79.899 Other long term (current) drug therapy; Z88.5 Allergy status to narcotic agent; Z99.81 Dependence on supplemental oxygen; Z90.49 Acquired absence of other specified parts of digestive tract; Z88.7 Allergy status to serum and vaccine

== ENCOUNTER → 2021-02-14 | Outpatient (REF) | payer MEDICARE ==
[~2021-02-14] MED LIST changes: +ELIQ2.5T PO; +RISATAB3 PO; +TORS20TA2 PO
== END ==
LOC: M LAB REF 17:12
PROVIDERS: ATTEND Internal Medicine Nephrology
DX: N17.9 Acute kidney failure, unspecified (principal); I50.32 Chronic diastolic (congestive) heart failure; I48.20 Chronic atrial fibrillation, unspecified

== ENCOUNTER → 2021-03-16 | Outpatient (REF) | payer MEDICARE | LOC: M LAB REF 18:13 | PROVIDERS: ATTEND Nurse Practitioner Family | DX: N18.31 Chronic kidney disease, stage 3a (principal) ==